=== PATIENT | female | born 1975 | race Caucasian/White ===

== ENCOUNTER 2020-04-23 16:16 | Outpatient (CLI) | payer OTHER, SELFPAY ==
--- NOTE | ~2020-04-23 | MM_ITS ---
EXAMINATION: MM screening luis f BI w andressa HISTORY: Screening mammogram TECHNIQUE: Craniocaudal and mediolateral oblique 3-D tomosynthesis images were obtained and synthetic 2-D images were generated. CAD analysis was submitted and interpreted. COMPARISON: 04/08/2019, 03/20/2018, 03/02/2017 bilateral digital screening mammogram examinations BREAST PARENCHYMAL COMPOSITION: There are scattered areas of fibroglandular density. FINDINGS: There is stable mild fibroglandular asymmetry. There is no evidence of suspicious mass, lon cification, or architectural distortion to suggest malignancy in either breast. There has been no baron picious interval change. IMPRESSION: 1. No mammographic evidence of malignancy. 2. Recommend routine screening mammography in one year. BI-RADS Category 2: Benign finding(s). Reviewed, dictated and finalized at location A.
== END 2020-04-23 16:17 | disposition home or self-care (01) ==
PROVIDERS: PCP Family Medicine; Visit Provider Family Medicine
DX: Z12.31 Encounter for screening mammogram for malignant neoplasm of breast (principal)
CPT/HCPCS: 77063; 77067

== ENCOUNTER 2020-08-12 14:45 | Emergency (ER) | payer OTHER, SELFPAY ==
--- NOTE | ~2020-08-12 | XR_ITS ---
EXAMINATION: XR tibia fibula RT 2V INDICATION: Right leg pain TECHNIQUE: Two views of the right tibia and fibula are obtained. COMPARISON: 06/12/2010 FINDINGS: There is no fracture, dislocation, or subluxation. The bones, soft tissues, and joint space s are normal. IMPRESSION: 1. No acute osseous abnormality. Reviewed, dictated and finalized at location A. 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
[2020-08-12 14:57] VITALS: BP 109/87; PULSE 87; RESP 16; TEMP 37.3; O2SAT 99
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
--- NOTE | 2020-08-12 15:31 | PC.NURSE ---
Davis sherwood with Dr Tate for transfer
--- NOTE | 2020-08-12 15:37 | PC.NURSE ---
appropriate paperwork signed for transfer report to [facility]
== END 2020-08-12 15:38 | disposition short-term general hospital (02) ==
PROVIDERS: Emergency Provider Nurse Practitioner; PCP Family Medicine
DX: M79.661 Pain in right lower leg (principal); M79.89 Other specified soft tissue disorders
CPT/HCPCS: 73590; 99213; G0463

== ENCOUNTER 2020-08-12 15:49 | Emergency (ER) | payer OTHER, SELFPAY ==
[2020-08-12 16:00] VITALS: BP 142/84; PULSE 78; RESP 18; TEMP 36.2; O2SAT 100
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
--- NOTE | 2020-08-12 17:05 | PC.NURSE ---
xray done and resulted. patient up for discharge. wants to see provider prior to discharge for results.
== END 2020-08-12 17:19 | disposition home or self-care (01) ==
PROVIDERS: Emergency Provider Emergency Medicine; PCP Family Medicine
DX: S80.11XA Contusion of right lower leg, initial encounter (principal); V49.60XA Unspecified car occupant injured in collision with unspecified motor vehicles in traffic accident, initial encounter
CPT/HCPCS: 99283

== ENCOUNTER 2021-05-04 15:24 | Outpatient (CLI) | payer OTHER, SELFPAY ==
--- NOTE | ~2021-05-04 | MM_ITS ---
EXAMINATION: MM screening [facility] BI w andressa HISTORY: Screening TECHNIQUE: Craniocaudal and mediolateral oblique 3-D tomosynthesis images were obtained and synthetic 2-D images were generated. CAD analysis was submitted and interpreted. COMPARISON: Comparison to multiple prior studies sequentially, with oldest reviewed study dated 02/18. BREAST PARENCHYMAL COMPOSITION: There are scattered areas of fibroglandular density. FINDINGS: There has been interval development of multiple benign coil cysts in the right breast, poss ibly from interval trauma. Clinically correlate. There is no evidence of suspicious mass, calcificati on, or architectural distortion to suggest malignancy in either breast. There has been no suspicious interval change. IMPRESSION: 1. No mammographic evidence of malignancy. 2. Recommend routine screening mammography in one year. BI-RADS Category 2: Benign finding(s). Reviewed, dictated and finalized at location A.
== END 2021-05-04 15:25 | disposition home or self-care (01) ==
LOC: ANHIMG 15:27
PROVIDERS: PCP Family Medicine; Visit Provider Family Medicine
DX: Z12.31 Encounter for screening mammogram for malignant neoplasm of breast (principal)
CPT/HCPCS: 77063; 77067

== ENCOUNTER 2022-06-04 07:14 | Outpatient (CLI) | payer OTHER, SELFPAY ==
--- NOTE | ~2022-06-04 | MM_ITS ---
EXAMINATION: MM screening [facility] BI w andressa HISTORY: Screening mammogram TECHNIQUE: Craniocaudal and mediolateral oblique 3-D tomosynthesis images were obtained and synthetic 2-D images were generated. CAD analysis was submitted and interpreted. COMPARISON: 05/04/2021, 04/23/2020, 04/08/2019 BREAST PARENCHYMAL COMPOSITION: There are scattered areas of fibroglandular density. FINDINGS: There is no suspicious mass, calcification, or architectural distortion to suggest malignan cy in either breast. There has been no suspicious interval change. IMPRESSION: 1. No mammographic evidence of malignancy. 2. Recommend routine screening mammography in one year. BI-RADS Category 1: Negative Reviewed, dictated and finalized at location A.
== END 2022-06-04 07:15 | disposition home or self-care (01) ==
LOC: ANHIMG 07:15
PROVIDERS: PCP Family Medicine; Visit Provider Family Medicine
DX: Z12.31 Encounter for screening mammogram for malignant neoplasm of breast (principal)
CPT/HCPCS: 77063; 77067

== ENCOUNTER 2022-12-03 08:00 | Emergency (ER) | payer OTHER, SELFPAY ==
--- NOTE | 2022-12-03 08:07 | ED.GENADULT ---
HPI - General Adult General Chief complaint: Upper Respiratory Infection Stated complaint: sorethroat Time Seen by Provider: 12/03/22 08:09 Source: patient Mode of arrival: ambulatory Limitations: no limitations History of Present Illness HPI narrative: 47-year-old female patient presents to the [facility] with complaints of a sore throat this started yesterday. 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 Patient states that she does not have any other symptoms. Patient states she does take Zyrtec daily. Denies fevers, body aches or chills. Related Data Home Medications Medication Instructions Recorded Confirmed mesalamine 1.2 gram tablet,delayed 1.2 g PO DAILY 08/12/20 08/12/20 release Allergies Allergy/AdvReac Type Severity Reaction Status Date / Time No Known Allergies Allergy Verified 12/03/22 08:13 Review of Systems Review of Systems: CONSTITUTIONAL: Denies fever, chills, or sweats. EYES: Denies visual changes, redness, or discharge. ENT: Denies rhinorrhea, congestion, Positive sore throat, denies otalgia. CARDIOVASCULAR: Denies chest pain, palpitations, or edema. RESPIRATORY: Denies cough or dyspnea. GASTROINTESTINAL: Denies abdominal pain, nausea, vomiting, or diarrhea. GENITOURINARY: Denies dysuria or hematuria. SKIN: Denies rash or itching. MUSCULOSKELETAL: Denies back pain, joint pain, or myalgia. NEUROLOGIC: Denies headache, numbness, or weakness. PSYCHIATRIC: Denies anxiety or depression. [facility] Past Medical History Medical History Ulcerative colitis Surgical History Surgical History No significant past surgical history Family History Family History Other No significant family history Social History Social History Smoking status: Never smoker Alcohol intake: current Alcohol use details: Occasional Substance use: never Living arrangements: with family Occupation/Education: occupation Comments At the time of my signature I agree with nursing past medical history, surgical, social, and family history. There is no relevant family history pertinent to the presenting complaint. Exam Narrative: GENERAL: Well-appearing, well-nourished, and in no acute distress. HEAD: Normocephalic, atraumatic. EYES: PERRLA and EOMI. ENT: Nares clear, no rhinorrhea or epistaxis. Mucous membranes moist. posterior pharynx with no erythema, tonsillar enlargement, exudates or lesions present. Bilateral TMs are clear no erythema or foreign bodies the canal. NECK: Supple. No lymphadenopathy CHEST: Clear to auscultation. No respiratory distress. HEART: Regular rate and rhythm. No murmur heard. Normal peripheral pulses. ABDOMEN: Soft, nontender, nondistended, normal active bowel sounds. EXTREMITIES: Normal range of motion. No edema. SKIN: Warm, dry, no rash. NEURO: No focal deficits. Alert and oriented x3. Course Course Level of Care: Express Care Visit Vital Signs Vital signs: Vital Signs Temperature 36.2 C L 12/03/22 08:12 Pulse Rate 63 12/03/22 08:12 Respiratory Rate 18 12/03/22 08:12 Blood Pressure 110/68 12/03/22 08:12 Pulse Oximetry 99 12/03/22 08:12 Oxygen Delivery Room Air 12/03/22 08:12 Temperature 36.2 C L 12/03/22 08:14 Pulse Rate 63 12/03/22 08:14 Respiratory Rate 18 12/03/22 08:14 Blood Pressure 110/68 12/03/22 08:14 Pulse Oximetry 99 12/03/22 08:14 Oxygen Delivery Room Air 12/03/22 08:14 vital signs reviewed Medical Decision Making MDM Narrative Medical decision making narrative: Plan of care for patient is swabbed her today for strep. If the swab comes back negative will send off to lab for culture. I will reassess her once this has resulted. Differential Di
[2022-12-03 08:12] VITALS: BP 110/68; PULSE 63; RESP 18; TEMP 36.2; O2SAT 99
[2022-12-03 08:14] VITALS: BP 110/68; PULSE 63; RESP 18; TEMP 36.2; O2SAT 99
== END 2022-12-03 08:30 | disposition home or self-care (01) ==
PROVIDERS: Emergency Provider Nurse Practitioner Family; PCP Family Medicine
DX: J02.9 Acute pharyngitis, unspecified (principal)
CPT/HCPCS: 87081; 87880; 99213; G0463

== ENCOUNTER 2023-07-15 07:29 | Outpatient (CLI) | payer OTHER, SELFPAY ==
--- NOTE | ~2023-07-15 | MM_ITS ---
EXAMINATION: MM screening [facility] BI w andressa HISTORY: Screening mammogram TECHNIQUE: Craniocaudal and mediolateral oblique 3-D tomosynthesis images were obtained and synthetic 2-D images were generated. CAD analysis was submitted and interpreted. COMPARISON: 06/04/2022, 05/04/2021, 04/23/2020, 04/08/2019 bilateral screening mammogram examinations BREAST PARENCHYMAL COMPOSITION: There are scattered areas of fibroglandular density. FINDINGS: Stable fibroglandular asymmetry. Stable since 06/04/2022 benign circumscribed partially calc ified opacity in the anterior inner mid right breast. There is no evidence of suspicious mass, calcif ication, or architectural distortion to suggest malignancy in either breast. There has been no suspic ious interval change. IMPRESSION: 1. No mammographic evidence of malignancy. 2. Recommend routine screening mammography in one year. BI-RADS Category 2: Benign finding(s). Reviewed, dictated and finalized at location B. EL LOCOMOTIVE ENGINEER
== END 2023-07-15 07:30 | disposition home or self-care (01) ==
PROVIDERS: PCP Family Medicine; Visit Provider Family Medicine
DX: Z12.31 Encounter for screening mammogram for malignant neoplasm of breast (principal)
CPT/HCPCS: 77063; 77067

== ENCOUNTER 2024-08-26 08:38 | Outpatient (CLI) | payer OTHER, SELFPAY ==
--- NOTE | ~2024-08-26 | MM_ITS ---
EXAMINATION: MM screening [facility] BI w adnressa HISTORY: Screening TECHNIQUE: Craniocaudal and mediolateral oblique 3-D tomosynthesis images were obtained and synthetic 2-D images were generated. CAD analysis was submitted and interpreted. COMPARISON: Examination was compared with multiple prior studies performed most recently on 3 and dating back to 04/23/2020 BREAST PARENCHYMAL COMPOSITION: There are scattered areas of fibroglandular density. FINDINGS: Punctate calcifications detected bilaterally, stable and benign in appearance. Stable parenchymal pattern without suspicious microcalcifications, architectural distortion, discrete masses or significant asymmetry. IMPRESSION: 1. No mammographic evidence of malignancy. 2. Recommend routine screening mammography in one year. BI-RADS Category 2: Benign findings. Reviewed, dictated and finalized at location A. COVERER HAND
--- OUTSIDE RECORDS SUMMARY | 2024-09-02 20:18 | XMS_ITS | Encounter Summary ---
Author Organization [facility] Healthcare Address [address] [place] [address] Care Team Providers Care Service Restorer Emergency Name Role Phone Eun Rodriguez MD Primary Care Provi ashli Carmen Alanis MD Unavailable [phone] Reason for Visit * Reason Comments Annual Exam Encounter Details Date Type Department Care Team (Late st Contact Info) Description 07/12/2024 9:30 AM MATERIAL ATTENDANT Office Visit [facility] Family Medicine [address] [id number] Eun Rodriguez MD [address] [address] Well adult exam (Primary Dx); Class 1 obesity due to excess calories with serious comorbidity and body mass index (BMI) of 30.0 to 30.9 in adult; Pure hypercholesterolemia ; Ulcerative colitis without complications, unspecified location (HCC); Seasonal allergies Social History Tobacco Use Types Packs/Day Years Used Date Smoking Tobacco: Never Smokeless Tobacco: Never Tobacco Cessation:Counseling Given: Not Answered Alcohol Use Standard Drinks/Week Comments Yes 0 (1 standard drink = 0.6 oz pur e alcohol) AUDIT-C Answer Date Recorded Q1: How often do you have a drink containing alc ohol? 2-4 times a month 07/12/2024 Q2: How many drinks containi ng alcohol do you have on a typical day when you are drinking? 1 or 2 07/12/2024 Q3: How often do you have si x or more drinks on one occasion? Never 07/12/2024 PHQ-2 Answer Date Recorded PHQ-2 Total Score (If total score is 3 or more points, staff should administer the PHQ-9) 0 07/12/2024 Comments No Sex and Gender Information Value Date Recorded Sex Assigned at Not on file Legal Sex Female 9:32 AM MATERIAL ATTENDANT Gender Identity Female 04/21/2021 2:30 PM CDT Sexual Orientation Straight 04/21/2021 2: 30 PM CDT documented as of this encounter Last Filed Vital Signs Vital Sign Reading Time Taken Comments Blood Pressure 102/72 07/12/2024 9:31 AM MATERIAL ATTENDANT Pulse 68 07/12/2024 9:31 AM MATERIAL ATTENDANT Temperature 36.4 ??C (97.5 ??F) 07/12/2024 9:31 AM CS T Respiratory Rate 12 07/12/2024 9:31 AM MATERIAL ATTENDANT Oxygen Saturation 97% 07/12/2024 9:31 AM MATERIAL ATTENDANT Inhaled Oxygen Concentration - - Weight 75.2 kg (165 lb 11.2 oz) 07/12/2024 9:31 AM MATERIAL ATTENDANT Height 157.5 cm (5' 2 ) 07/12/2024 9:31 AM MATERIAL ATTENDANT Body Mass Index 30.31 07/12/2024 9:31 AM MATERIAL ATTENDANT documented in this encounter Patient Instructions * Patient Instructions* Eun Rodriguez MD - 07/12/2024 9:30 AM MATERIAL ATTENDANT Health Maintenance Topic Date Due Hepatitis B Screening Never done Breast Cancer Screening-Mammogram 07/15/2024 Regular Well Visit/Exam 18-64 04/08/2025 Cervical Cancer Screening 04/08/2025 Depression Screening 07/12/2025 Colon Cancer Screening-Colonoscopy 02/12/2029 DTaP/Tdap/Td Vaccine (3 - Td or Tdap) 04/21/2031 Zoster Vaccine Completed Covid-19 Vaccine Completed Influenza Vaccine Completed Hepatitis C Screening Completed Pneumococcal vaccine <65 Aged Out RIAL ATTENDANT documented in this encounter Progress Notes * Eun Rodriguez MD - 07/12/2024 9:30 AM CST Images from the original note were not included. Subjective History of Present Illness The patient presents for an annual wellness visit. She reports no changes to her medical or family history. She has had a recent Pap smear in April, which was negative. She has a scheduled mammogramin August and had a colonoscopy in February, with the next one due in two years. She is up to date onher tetanus, flu, COVID, and shingles vaccines. The patient has a history of ulcerative colitis, which is currently well-managed with mesalamine. She reports no current issues with her bowel movements or eating and drinking. She also has seasonal allergies, managed with Nasonex. . She has a history of hypercholesterolemia, with a recent slight increase in LDL levels. However, her overall cardiovascular risk remains low. The patient is classified as obese based on BMI, but she does not report any specific concerns related to her weight. Objective BP 102/72 (BP Location: Left arm, Patient Position: Sitting) Pulse 68 Temp 36.4 ??C (97.5 ??F) (Temporal) Resp 12 Ht 157.5 cm (5' 2 ) Wt 75.2 kg (165 lb 11.2 oz) SpO2 97% BMI 30.31 kg/m?? Physical Exam HEENT: Pharynx without erythema or exudate. CHEST: Breath sounds clear bilaterally without wheezes, rales, or rhonchi. Physical Exam Vitals and nursing note reviewed. Constitutional: General: She is not in acute distress. Appearance: Normal appearance. She is well-developed. She is obese. She is not ill-appearing. HENT: Head: Normocephalic and atraumatic. Right Ear: Tympanic membrane, ear canal and external ear normal. Left Ear: Tympanic membrane, ear canal and external ear normal. Nose: Nose normal. Mouth/Throat: Mouth: Mucous membranes are moist. Eyes: Extraocular Movements: Extraocular movements intact. Cardiovascular: Rate and Rhythm: Normal rate and regular rhythm. Heart sounds: Normal heart sounds. No murmur heard. Pulmonary: Effort: Pulmonary effort is normal. No respiratory distress. Breath sounds: Normal breath sounds. Abdominal: General: Bowel sounds are normal. There is no distension. Palpations: Abdomen is soft. Tenderness: There is no abdominal tenderness. Musculoskeletal: Cervical back: Neck supple. Skin: General: Skin is warm and dry. Neurological: Mental Status: She is alert and oriented to person, place, and time. Motor: No abnormal muscle tone. Psychiatric: Mood and Affect: Mood normal. Behavior: Behavior normal. Thought Content: Thought content normal. Results LABS LDL: Elevated Thyroid: Normal B12: Normal Hepatitis C: Negative DIAGNOSTIC Colonoscopy: Normal (02/2024) PATHOLOGY Pap smear: Negative (04/2024) Diagnoses and all orders for this visit: Well adult exam (Primary) Assessment & Plan: Work on healthy low carb diet Healthy activity for 30 minutes daily Wear sun screen, seat belts No texting/drinking and driving Health Maintenance Last PAP: 04/2021,04/27- NILM, Neg HPV Last mammogram: 06/25,07/27-WNL, scheduled Last colonoscopy: 02/25-repeat in 2 years Last TDAP- up to date Shingles-up to date Last Flu: yearly Last COVID: up to date Class 1 obesity due to excess calories with serious comorbidity and body mass index (BMI) of 30.0 to 30.9 in adult Assessment & Plan: Chronic, stable BMI Follow-up includes: nutrition counseling and exercise counseling. Pure hypercholesterolemia Ulcerative colitis without complications, unspecified location (HCC) Seasonal allergies Assessment & Plan Well adult exam (Primary) Assessment & Plan: Work on healthy low carb diet Healthy activity for 30 minutes daily Wear sun screen, seat belts No texting/drinking and driving Health Maintenance Last PAP: 04/2021,04/27- NILM, Neg HPV Last mammogram: 06/25,07/27-WNL, scheduled Last colonoscopy: 02/25-repeat in 2 years Last TDAP- up to date Shingles-up to date Last Flu: yearly Last COVID: up to date Ulcerative Colitis Stable with no reported changes in bowel habits or abdominal discomfort. Currently managed with mesalamine by GI. -Continue mesalamine as prescribed. Hypercholesterolemia Slight progression noted in recent labs, but patient's [employer] score is 1.2%, below the 5% threshold for medication initiation. -Monitor cholesterol levels and maintain healthy lifestyle. Seasonal Allergies Managed with Nasonex. -Continue Nasonex as needed. Obesity Chronic, stable Continue healthy lifestyle changes General Health Maintenance / Followup Plans -Continue with scheduled mammogram on August 23, 2024 at [facility]. -Next colonoscopy due in February 2026. -Continue with scheduled nerve conduction study on July 15, 2024. Await results and follow up as needed. -All vaccinations, including shingles, are up to date. -Encouraged to maintain healthy lifestyle, including regular exercise and strength training. Eun Rodriguez MD RIAL ATTENDANT documented in this encounter Miscellaneous Notes * Assessment & Plan Note - Eun Rodriguez MD - 07/12/2024 9:57 AM CSTAssociated Problem(s): Class 1 obesity due to excess calories with serious comorbidity and body mass index (BMI) of 30.0 to 30.9 in adult Chronic, stable BMI Follow-up includes: nutrition counseling and exercise counseling. RIAL ATTENDANT * Assessment & Plan Note - Eun Rodriguez MD - 07/12/2024 9:48 AM CSTAssociated Problem(s): Well adult exam Work on healthy low carb diet Healthy activity for 30 minutes daily Wear sun screen, seat belts No texting/drinking and driving Health Maintenance Last PAP: 04/2021,04/27- NILM, Neg HPV Last mammogram: 06/25,07/27-WNL, scheduled Last colonoscopy: 02/25-repeat in 2 years Last TDAP- up to date Shingles-up to date Last Flu: yearly Last COVID: up to date RIAL ATTENDANT documented in this encounter Plan of Treatment Not on file documented as of this encounter Visit Diagnoses Diagnosis Well adult exam- Primary Routine general medical examination at a health care facility Class 1 obesity due to excess calories with serious comorbidity and body mass index (BMI) of 30.0 to 30.9 in adult Pure hypercholesterolemia Ulcerative colitis without complications, unspecified location (HCC) Seasonal allergies Allergic rhinitis, cause unspecified documented in this encounter Care Teams Service Restorer Emergency Relationship Specialty Start Date End Date Eun Rodriguez MD [address] [place] [address] PCP - General Family Medicine 02/08/19 Carmen Alanis MD [address] [address] Consulting Physician Gastroenterology 04/28/22 documented as of this encounter
--- OUTSIDE RECORDS SUMMARY | 2024-09-02 20:18 | XMS_ITS | Encounter Summary ---
Author Organization [facility] Healthcare Address [address] [place] [address] Care Team Providers Care Metal Dresser Name Role Phone Eun Rodriguez MD Primary Care Provi ashli Carmen Alanis MD Unavailable [phone] Reason for Visit * Reason Comments Immunizations Shingrix Encounter Details Date Type Department Care Team (Latest Contact Info) Description 04/08/2024 8:00 AM CDT Clinical Support [facility] Family Medicine [address] [phone] Encounter for immunization (Primary Dx) Social History Tobacco Use Types Packs/Day Years Used Date Smoking Tobacco: Never Smokeless Tobacco: Never Alcohol Use Standard Drinks/Week Comments Yes 0 (1 standard drink = 0.6 oz pur e alcohol) AUDIT-C Answer Date Recorded Q1: How often do you have a drink containing alc ohol? 2-4 times a month 05/03/2023 Q2: How many drinks containi ng alcohol do you have on a typical day when you are drinking? 1 or 2 05/03/2023 Q3: How often do you have si x or more drinks on one occasion? Never 05/03/2023 PHQ-2 Answer Date Recorded PHQ-2 Total Score (If total score is 3 or more points, staff should administer the PHQ-9) 0 05/03/2023 Comments No Sex and Gender Information Value Date Recorded Sex Assigned at Not on file Legal Sex Female 9:32 AM TANKAGE SUPERVISOR Gender Identity Female 04/21/2021 2:30 PM CDT Sexual Orientation Straight 04/21/2021 2: 30 PM CDT documented as of this encounter Plan of Treatment Not on file documented as of this encounter Visit Diagnoses Diagnosis Encounter for immunization- Primary documented in this encounter Orders Immunization/Injection Count Last Ordered Date First Ordered Date ZOSTER (SHINGLES) HZV IM 1 04/08/2024 documented in this encounter Care Teams Metal Dresser Relationship Specialty Start Date End Date Eun Rodriguez MD [address] [place] [address] PCP - General Family Medicine 02/08/19 Carmen Alanis MD [address] [facility] [address] [place] [address] Consulting Physician Gastroenterology 04/28/22 documented as of this encounter
--- OUTSIDE RECORDS SUMMARY | 2024-09-02 20:18 | XMS_ITS | Referral Summary ---
Author Organization [facility] at the Medical Office Building Address [address] [place] [phone] Care Team Providers Care Hearing Aid Consultant Name Role Phone Eun Rodriguez MD Primary Care Provi ashli Carmen Alanis MD Unavailable [phone] Encounters Date Type Department Care Team Description 07/24/2024 Telephone [facility] Family Medicine [address] [place] [phone] Eun Rodriguez MD Symptom Based Call 07/15/2024 9:00 AM COVERER Therapy [facility] OP Physical Therapy [address] [place] [phone] Tingling of both feet 07/12/2024 9:30 AM COVERER Office Visit [facility] Medicine [address] [place] [phone] Eun Rodriguez MD Well adult exam (Primary Dx); Class 1 obesity due to excess calories with serious comorbidity and body mass index (BMI) of 30.0 to 30.9 in adult; Pure hypercholesterolemia ; Ulcerative colitis without complications, unspecified location (HCC); Seasonal allergies from Last 3 Months Allergies No known active allergies Medications multivit with min-folic acid 200 mcg tablet,chewabl e Rx: Multivitamin Adult - Tablet Active cetirizine 10 mg capsule 10 mg daily Active mesalamine (LIALDA) 1.2 gram EC tablet daily Activ e PreviDent 5000 Booster Plus 1.1 % paste USE AT BEDIME AND EXPECTORATE TOOTHPASTE AFTER USE BUT DO NOT RINSE AFTER USE 1 Active mometasone (NASONEX) 50 mcg/actuation nasal spray USE 2 SPRAYS IN EACH NOSTRIL DAILY 17 g 11 3 Active azithromycin (ZITHROMAX) 250 mg tabletIndicati ons:Pertussis exposure Take 2 tabs (500 mg) by mouth today, than 1 tab (250 mg) daily for 4 days. 6 tablet 4 08/04/20 24 Active Problems Problem Noted Date Diagnosed Date Class 1 obesity due to exces s calories with serious comorbidity and body mass index (BMI) of 30.0 to 30.9 in adult 04/28/2022 Assessment & Plan (07/12/2024 9:57 AM COVERER): Chronic, stable BMI Follow-up includes: nutrition counseling and exercise counseling. Assessment & Plan (05/03/2023 2:00 PM CDT): BMI Follow-up includes: nutrition counseling. Assessment & Plan (04/28/2022 3:23 PM CDT): BMI Follow-up includes: nutrition counseling. Ulcerative colitis 04/16/2020 Assessment & Plan (05/03/2023 2:00 PM CDT): Chronic, stable Continue to see Dr Alanis Continue her current regimen Call for questions or concerns Assessment & Plan (04/28/2022 3:25 PM CDT): Chronic, stable Continue lialda Continue to follow with GI Assessment & Plan (04/21/2021 3:17 PM CDT): Continue to follow with GI Continue current regimen Call for questions or concerns Assessment & Plan (04/16/2020 3:56 PM CDT): Continue to follow with GI Update me with any changes Well adult exam 03/13/2019 Overview (07/12/2024): Work on healthy low carb diet Healthy activity for 30 minutes daily Wear sun screen, seat belts No texting/drinking and driving Health Maintenance Last PAP: 04/2021,04/27- NILM, Neg HPV Last mammogram: 06/25,07/27-WNL, scheduled Last colonoscopy: 02/25-repeat in 2 years Last TDAP- up to date Shingles-up to date Last Flu: yearly Last COVID: up to date Assessment & Plan (07/12/2024 9:48 AM COVERER): Work on healthy low carb diet Healthy activity for 30 minutes daily Wear sun screen, seat belts No texting/drinking and driving Health Maintenance Last PAP: 04/2021,04/27- NILM, Neg HPV Last mammogram: 06/25,07/27-WNL, scheduled Last colonoscopy: 02/25-repeat in 2 years Last TDAP- up to date Shingles-up to date Last Flu: yearly Last COVID: up to date Assessment & Plan (05/03/2023 1:58 PM CDT): Work on healthy low carb diet Healthy activity for 30 minutes daily Wear sun screen, seat belts No texting/drinking and driving Health Maintenance Last PAP: 04/2021- NILM, Neg HPV Last mammogram: 06/04/22-WNL, ordered Last colonoscopy: 12/21/15-repeat next year Last TDAP- up to date Last Flu: yearly Last COVID: up to date Assessment & Plan (04/28/2022 3:22 PM CDT): Work on healthy low carb diet Healthy activity for 30 minutes daily Wear sun screen, seat belts No texting/drinking and driving Health Maintenance Last PAP: 04/2021- Neg Last mammogram: 05/04/22-WNL, ordered Last colonoscopy: 12/21/15-repeat in 10 years Last TDAP- up to date Last Flu: yearly Last COVID: up to date Assessment & Plan (04/21/2021 3:13 PM CDT): Work on healthy low carb diet Healthy activity for 30 minutes daily Wear sun screen, seat belts No texting/drinking and driving PMH updated: Last PAP: today Last mammogram: Ordered Last colonoscopy/cologuard: 12/21/15-repeat in 10 years Last Flu: yearly Last COVID: up to date Assessment & Plan (04/16/2020 3:28 PM CDT): Work on healthy low carb diet Healthy activity for 30 minutes daily Wear sun screen, seat belts No texting/drinking and driving PMH updated: 03/13/19 Last PAP: 02/21/18 Last mammogram:[facility] 04/08/19 Negative Last DEXA: @58 Last colonoscopy/cologuard: 12/21/15-repeat in 10 years Last hepatitis C: @53 Last Tdap: 02/12 Last pneumonia/Prevnar:@63 Last Shingrix: @48 Last Flu: yearly Assessment & Plan (03/13/2019 9:24 AM CDT): Work on healthy low carb diet Healthy activity for 30 minutes daily Wear sun screen, seat belts No texting/drinking and driving Low libido 03/13/2019 Assessment & Plan (03/13/2019 9:25 AM CDT): Will check labs Pure hypercholesterolemia 02/21/2018 Assessment & Plan (05/03/2023 1:59 PM CDT): Chronic, stable Continue healthy changes Labs ordered Assessment & Plan (04/28/2022 3:24 PM CDT): CVD score 29.1% Continue healthy changes Assessment & Plan (04/21/2021 3:17 PM CDT): Improved Continue healthy changes Assessment & Plan (03/13/2019 9:25 AM CDT): Labs ordered Seasonal allergies 02/12/2018 Assessment & Plan (04/28/2022 3:24 PM CDT): Chronic, stable Continue zyrtec Assessment & Plan (04/21/2021 3:17 PM CDT): Stable Continue current regimen Assessment & Plan (04/16/2020 3:56 PM CDT): Continue current regimen Continue healthy changes Resolved Problems Problem Noted Date Diagnosed Date Resolved Date Class 1 obesity due to exces s calories with serious comorbidity and body mass index (BMI) of 30.0 to 30.9 in adult 03/13/2019 04/28/2022 Assessment & Plan (04/21/2021 3:16 PM CDT): BMI Follow-up includes: nutrition counseling. Assessment & Plan (04/16/2020 3:30 PM CDT): BMI Follow-up includes: nutrition counseling. Assessment & Plan (03/13/2019 9:26 AM CDT): Reviewed BMI Encouraged to focus on healthy lifestyle changes Immunizations Name Administration Dates Next Due Influenza, Quadrivalent, Odalys l Culture-based MDCK, Preservative Free, Antibiotic Free, Intramuscular 06/16/2023,05/27/2022 Influenza, Quadrivalent, Spl it, Preservative Free, Intramuscular 06/04/2021,05/25/2019,06/26/2018 Influenza, Trivalent, IM (MDV) 06/16/2014 Influenza, Trivalent, Preser vative Free, Intramuscular 05/26/2024,06/15/2017,06/06/2016,06/24,09/17/2012 Influenza, Unspecified 06/04/2020 MMR 12/11/2006 Pfizer SARS-CoV-2 Monovalent Vaccination (12+ Yrs) PURPLE 10/19/2020,09/28/2020 Tdap 04/21/2021,02/15/2011 ZOSTER Recombinant 04/08/2024,11/30/2023 Social History Tobacco Use Types Packs/Day Years [...] on file Legal Sex Female 9:32 AM COVERER Gender Identity Female 04/21/2021 2:30 PM CDT Sexual Orientation Straight 04/21/2021 2: 30 PM CDT Last Filed Vital Signs Vital Sign Reading Time Taken Comments Blood Pressure 102/72 07/12/2024 9:31 AM COVERER Pulse 68 07/12/2024 9:31 AM COVERER Temperature 36.4 ??C (97.5 ??F) 07/12/2024 9:31 AM CS T Respiratory Rate 12 07/12/2024 9:31 AM COVERER Oxygen Saturation 97% 07/12/2024 9:31 AM COVERER Inhaled Oxygen Concentration - - Weight 75.2 kg (165 lb 11.2 oz) 07/12/2024 9:31 AM COVERER Height 157.5 cm (5' 2 ) 07/12/2024 9:31 AM COVERER Body Mass Index 30.31 07/12/2024 9:31 AM COVERER Plan of Treatment Not on file Procedures Procedure Name Priority Date/Time Associated Diagnosis Comments HEPATITIS C ANTIBODY Routine 06/01/2024 8:03 AM CDT Need for hepatitis C screening test HIGH RISK HPV DNA DETECTION WITH GENOTYPING Routine 04/08/2024 9:53 AM CDT Well woman exam HM COLONOSCOPY Routine 02/13/2024 HM MAMMOGRAPHY Routine 07/15/2023 from Last 3 Months or Most Recently Relevant to Health Maintenance Results * Hepatitis C antibody Blood (06/01/2024 8:03 AM CDT) Hep C Ab Non Reactive Non Reactive [facility] - 01 Comment: HCV antibody alone does not differentiate between previously resolved infection and active infection. Equivocal and Reactive HCV antibody results should be followed up with an HCV RNA test to support the diagnosis of active HCV infection. Blood 06/01/2024 8:03 AM CDT 06/01/2024 Narrative [facility] - 06/02/2024 8:09 AM CDT Performed at: ??01 - [facility], [place], [place] ??[id number] Asphalt Machine Operator: Vasiliy Leach PhD, Phone: ??[phone] Eun Rodriguez MD LAB MICROBIOLOGY - GENERAL ORDERABLES Final Result [facility] - * High Risk HPV DNA Detection with Genotyping (Molecular component) (04/08/2024 9:53 AM CDT) HPV HR 16 Not Detected Not Detected [facility] Comment:Testing performed by : [facility], [address] [place]., [address] HPV HR 18 Not Detected Not Detected [facility] Comment:Testing performed by : [facility], [address] [place]., [address] HPV HR Non 16/18 Not Detected Not Detected [facility] Comment: Interpretive Data Nucleic acid amplification for detection of high-risk Human Papilloma virus (HPV) is performed by the Jairo Nicole 6800 HPV test. ??This assay specifically detects HPV-16 and HPV-18 genotypes. ??The following HPV genotypes are detected as high-risk HPV: ?? HPV-31, 33, 35, ,39, 45, 51, 52, 56, 58, 59, 66, and 68. ??This assay has been approved by the [place] Food and Drug Administration for detection of HPV in cervical specimens collected by a physician using an endocervical brush/spatula or cervical broom and placed in the ThinPrep Pap Test PreservCyt collection containers. ??The performance characteristics of this test have been verified by the [facility] Molecular Infectious Disease laboratory. Correlate with separately reported cytology results, as applicable. Interpretive data last revised 23 Testing performed by: [facility], [address] [place]., [address] Endocervical 04/08/2024 9:53 AM CDT 04/09/2024 10:08 AM CDT Narrative [facility] - 04/09/2024 8:57 PM CDT Clinical history and diagnosis->Routine Number of vials->1 Testing type->Screening Last menstrual period (date if known)->IUD Kavitha Shelley MD LAB BODY FLUIDS AND STOOLS O RDERABLES Final Result [facility] [address] [facility] [place] [address] [facility] * COLONOSCOPY (02/13/2024) Historical Provider HEALTH MAINTENANCE Final Result * MAMMOGRAPHY (07/15/2023) Pathologist [facility] Mammography Normal Historical Provider HEALTH MAINTENANCE Final Result from Last 3 Months or Most Recently Relevant to Health Maintenance Insurance [facility] PL[facility] Care Teams Hearing Aid Consultant Relationship Specialty Start Date End Date Eun Rodriguez MD [facility] [address] [place] [address] PCP - General Family Medicine 02/08/19 Carmen Alanis MD [address] [place] [address] Consulting Physician Gastroenterology 04/28/22
--- OUTSIDE RECORDS SUMMARY | 2024-09-02 20:18 | XMS_ITS | Clinical Summary ---
Author Organization [facility] at the Medical Office Building Address [address] [place] [address] Care Team Providers Care Torch Brazer Name Role Phone Eun Rodriguez MD Primary Care Provi ashli Carmen Alanis MD Unavailable [phone] Allergies No known active allergies Medications multivit [...] 04/28/2022 Assessment & Plan (07/12/2024 9:57 AM TRAVEL INSURANCE AGENT): Chronic, stable BMI Follow-up includes: nutrition counseling [...] date Assessment & Plan (07/12/2024 9:48 AM TRAVEL INSURANCE AGENT): Work on healthy low carb diet Healthy [...] Encouraged to focus on healthy lifestyle changes Encounters Date Type Department Care Team Description 07/24/[address] [phone] Eun Rodriguez MD Symptom Based Call 07/15/2024 9:00 AM TRAVEL INSURANCE AGENT Therapy [facility] OP Physical Therapy [facility] [address] [address] Tingling of both feet 07/12/2024 9:30 AM TRAVEL INSURANCE AGENT Office Visit [address] [phone] Eun Rodriguez MD Well adult exam (Primary Dx); Class 1 obesity due to excess calories with serious comorbidity and body mass index (BMI) of 30.0 to 30.9 in adult; Pure hypercholesterolemia ; Ulcerative colitis without complications, unspecified location (HCC); Seasonal allergies from Last 3 Months Immunizations Name Administration Dates Next Due Influenza, Quadrivalent, Odalys l Culture-based MDCK, Preservative Free, Antibiotic Free, Intramuscular 06/16/2023,05/27/2022 Influenza, Quadrivalent, Spl it, Preservative Free, Intramuscular 06/04/2021,05/25/2019,06/26/2018 Influenza, Trivalent, IM (MDV) 06/16/2014 Influenza, Trivalent, Preser vative Free, Intramuscular 05/26/2024,06/15/2017,06/06/2016,06/24,09/17/2012 Influenza, Unspecified 06/04/2020 MMR 12/11/2006 Pfizer SARS-CoV-2 Monovalent Vaccination (12+ Yrs) PURPLE 10/19/2020,09/28/2020 Tdap 04/21/2021,02/15/2011 ZOSTER Recombinant 04/08/2024,11/30/2023 Surgical History Surgery Date Site/Laterality Comments ROTATOR CUFF REPAIR 09/04/2015 - 09/03/2016 TARSAL TUNNEL RELEASE ADAMARIS 2006 Medical History Medical History Date Comments Pure hypercholesterolemia 02/21/2018 Seasonal allergies 02/12/[address] jalen garcia TMJ (dislocation of temporomandibular joint) Routine general medical exam ination at a health care facility 03/13/2019 Family History Medical History Relation Name Comments No Known Problems Father Heart disease Maternal Grandfather Ravin Clarke Cancer Maternal Grandmother Jeaneth Clarke Cancer Mother Nesha Kimball Lung cancer Mother Nesha Kimball Breast cancer Neg Hx Ovarian cancer Neg Hx Uterine cancer Neg Hx Relation Name Status Comments Father Alive Maternal Grandfather Ravin Clarke Maternal Grandmother Jeaneth Clarke Mother Nesha Kimball Social History Tobacco Use Types Packs/Day Years [...] on file Legal Sex Female 9:32 AM TRAVEL INSURANCE AGENT Gender Identity Female 04/21/2021 2:30 PM CDT Sexual Orientation Straight 04/21/2021 2: 30 PM CDT Obstetrics History Para Term AB IAB SAB Ectopic Multiple Livin g Live Births 3 2 2 1 2 2 Date Outcome GA Total Labor Labor/2nd/3rd Weight Sex Type Anes PTL Linda A1 A5 Name Clin AB Term Vag-S pont Living Term Vag-S pont Living Last Filed Vital Signs Vital Sign Reading Time Taken Comments Blood Pressure 102/72 07/12/2024 9:31 AM TRAVEL INSURANCE AGENT Pulse 68 07/12/2024 9:31 AM TRAVEL INSURANCE AGENT Temperature 36.4 ??C (97.5 ??F) 07/12/2024 9:31 AM CS T Respiratory Rate 12 07/12/2024 9:31 AM TRAVEL INSURANCE AGENT Oxygen Saturation 97% 07/12/2024 9:31 AM TRAVEL INSURANCE AGENT Inhaled Oxygen Concentration - - Weight 75.2 kg (165 lb 11.2 oz) 07/12/2024 9:31 AM TRAVEL INSURANCE AGENT Height 157.5 cm (5' 2 ) 07/12/2024 9:31 AM TRAVEL INSURANCE AGENT Body Mass Index 30.31 07/12/2024 9:31 AM TRAVEL INSURANCE AGENT Plan of Treatment Health Maintenance Due Date Last Done Comments Hepatitis B Screening 12/02/1991 Breast Cancer Screening-Mammogram 07/15/2024 07/15/2023, 06/04/2022, 05/04/2021, Additional history exists Cervical Cancer Screening 04/08/20252023, 04/08/2024, 04/21/2021, Additional history exists Depression Screening 07/12/2025 07/12/2024, 05/03/2024, 05/03/2023, Additional history exists Regular Well Visit/Exam 18-64 07/12/2025 07/12/2024, 04/08/2024, 05/03/2023, Additional history exists Colon Cancer Screening-Colonoscopy 02/12/2029 02/13/2024, 04/22/2021 DTaP/Tdap/Td Vaccine (3 - Td or Tdap) 04/21/2031 04/21/2021, 02/15/2011 Zoster Vaccine Completed 04/08/2024, 11/30/2023 Covid-19 Vaccine Completed 05/26/2024, , 05/27/2022, Additional history exists Influenza Vaccine Completed 05/26/2024, , 05/27/2022, Additional history exists Hepatitis C Screening Completed 06/01/2024 Pneumococcal vaccine <65 Aged Out No longer eligible based on patient's age to complete this topic Procedures Procedure Name Priority Date/Time Associated Diagnosis Comments HEPATITIS C ANTIBODY Routine 06/01/2024 8:03 AM CDT Need for hepatitis C screening test HIGH RISK HPV DNA DETECTION WITH GENOTYPING Routine 04/08/2024 9:53 AM CDT Well woman exam HM COLONOSCOPY Routine 02/13/2024 MAMMOGRAPHY Routine 07/15/2023 from Last 3 Months [...] 8:09 AM CDT Performed at: ??01 - [facility] ??[id number] Campus Administrator: Vasiliy Leach PhD, Phone: ??[phone] Eun Rodriguez MD LAB MICROBIOLOGY - GENERAL ORDERABLES Final Result [facility] - 01 * High Risk HPV DNA Detection with Genotyping (Molecular component) (04/08/2024 9:53 AM CDT) Pathologist [facility] HPV HR 16 Not Detected Not Detected [facility] Comment:Testing performed by : [facility], [address] [facility] [place]., [address] HPV HR 18 Not Detected Not Detected [facility] Comment:Testing performed by : [facility], [address] [facility] [place]., [address] HPV HR Non 16/18 Not Detected Not [...] this test have been verified by the [facility] Molecular Infectious Disease laboratory. Correlate with separately reported cytology results, as applicable. Interpretive data last revised 23 Testing performed by: [facility], [address] [facility] [place]., [address] Endocervical 04/08/2024 9:53 AM CDT 04/09/2024 10:08 AM CDT Narrative [facility] - 04/09/2024 8:57 PM CDT Clinical history and diagnosis->Routine Number of vials->1 Testing type->Screening Last menstrual period (date if known)->IUD Kavitha Shelley MD LAB BODY FLUIDS AND STOOLS O RDERABLES Final Result [facility] [address] [facility] Department [place] [address] [facility] * COLONOSCOPY (02/13/2024) Historical Provider HEALTH MAINTENANCE Final Result * MAMMOGRAPHY (07/15/2023) Pathologist [facility] Mammography Normal Historical Provider HEALTH MAINTENANCE Final Result from Last 3 Months or Most Recently Relevant to Health Maintenance Insurance [facility] [employer] [facility] [employer] Care Teams Torch Brazer Relationship Specialty Start Date End Date Eun Rodriguez MD [address] [place] [address] PCP - General Family Medicine 02/08/19 Carmen Alanis MD [address] [place] [address] Consulting Physician Gastroenterology 04/28/22
--- OUTSIDE RECORDS SUMMARY | 2024-09-02 20:18 | XMS_ITS | Encounter Summary ---
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 Gender Identity Female 04/21/2021 2:30 PM CDT Sexual Orientation Straight 04/21/2021 2: 30 PM CDT documented as of this encounter Medications at Time of Discharge cetirizine 10 mg capsule 10 mg daily mesalamine (LIALDA) 1.2 gram EC tablet daily mometasone (NASONEX) 50 mcg/actuation nasal spray USE 2 SPRAYS IN EACH NOSTRIL DAILY 17 g 11 01/27/2023 multivit with min-folic acid 200 mcg tablet,chewable Rx: Multivitamin Adult - Tablet PreviDent 5000 Booster Plus 1.1 % paste USE AT BEDIME AND EXPECTORATE TOOTHPASTE AFTER USE BUT DO NOT RINSE AFTER USE 03/19/2021 documented as of this encounter Discharge Disposition Disposition Code Departure Means Destination Discharge to home or self care documented in this encounter Plan of Treatment Not on file documented as of this encounter Procedures Procedure Name Priority Date/Time Associated Diagnosis Comments HIGH RISK HPV DNA DETECTION WITH GENOTYPING Routine 04/08/2024 9:53 AM CDT Well woman exam PAP AND HIGH RISK HPV, REFLEX TO GENOTYPING Routine 04/08/2024 9:53 AM CDT Well woman exam documented in this encounter Results * Pap and High Risk HPV and Genotyping (Cytology Component) (04/08/2024 9:53 AM CDT) Endocervical (Pap test) 04/08/2024 9:53 AM CDT 04/09/2024 6:00 AM CDT Narrative PATHOLOGY [facility] - 04/15/2024 7:43 AM CDT EPIC results best viewed via link to PDF [facility] [place] [address] Note to Patients: This report may contain a detailed description of human tissue sent by a health care provider to the laboratory for pathologic evaluation. The content of this report is essential for diagnosis and may provide important critical findings. This information may be unfamiliar to patients to review without a medical professional present. It is advised that the patient review this report in the presence of a health care provider who can answer questions and explain the details. CYTOPATHOLOGY REPORT FINAL Patient Name: ??AMANDA BUSTILLOS Gender: ??F : ??1975 (Age: 48) Address: ??[facility] [place] ??[address] Hospital #: ??[id number] Service: ??DEFAULT Location: ?? Patient Type: ??[facility] SPECIMEN Taken: ??04/08/2024 Received: ??04/09/2024 Accessioned: ??04/09/2024 Reported: ??04/15/2024 Physician(s): ??Cara Shelley M.D. ?? FINAL INTERPRETATION SOURCE OF SPECIMEN ? Liquid based Thin Prep pap with HPV: STATEMENT OF ADEQUACY ?- Satisfactory for evaluation ?- Endocervical cells/transformation zone sample present ? GENERAL CATEGORIZATION: ?- Negative for squamous intraepithelial lesion or malignancy ? Comments (Normal-Negative for High Risk HPV) HPV HR 16- Not detected HPV HR 18-Not detected HPV HR non 16/18- Not detected Interpretive Data Nucleic acid amplification for detection of high-risk Human Papilloma virus (HPV) is performed by the Jairo Nicole 6800 HPV test. This assay specifically detects HPV- 16 and HPV-18 genotypes. The following HPV genotypes are detected as high-risk HPV: HPV-31, 33, 35, 39, 45, 51, 52, 56, 58, 59, 66, and 68. This assay has been approved by the [place] Food and Drug Administration for detection of HPV in cervical specimens collected by a physician using an endocervical brush/spatula or cervical broom and placed in the ThinPrep Pap Test PreservCyt collection containers. The performance characteristics of this test have been verified by the [facility] Molecular Infectious Disease laboratory. Correlate with reported cytology results, as applicable. Interpretive data last revised 23 tcg/04/15/2024 07:43 LISY King (ASCP) Report Electronically Reviewed and Signed Out By LISY King (ASCP) 04/15/2024 07:43:41 Cervicovaginal Cytology (Pap Test) Disclaimer: The Pap test is a screening test used to detect cervical cancer and its precursors; it is not a diagnostic procedure. False negative and false positive results do occur. Pap test results should be interpreted in the context of pertinent clinical information and biopsy results as indicated. [facility] Clinical Laboratory Improvement Amendments (CLIA) mandate that cytologic and histologic results be correlated for laboratory quality process lead & improvement standards. ??FOR ALL HIGH-GRADE CASES we request submission of follow-up histological material and/or reports that have not been previously provided so that we may fulfill said required standards. ?? Gross Description A. ??Liquid based Thin Prep pap with HPV: ??Cervical/vaginal - Screening ThinPrep Clinical Diagnosis and History Last Menstrual Period: IUD The patient is a 48 year old female with routine. Report Images and scanned documents, if included only viewable in PDF version The performance characteristics of some immunohistochemical stains, in-situ hybridization and fluorescence in-situ hybridization tests and immunophenotyping by flow cytometry cited in this report (if any) were determined by the Surgical Pathology Department at [facility] as part of an ongoing quality assurance assessor program and in compliance with federally mandated regulations drawn from the Clinical Laboratory Improvement Act of 1988 (CLIA '88). ??Some of these tests rely on the use of analyte specific reagents and are subject to specific labeling requirements by the US Food and Drug Administration. ??Such diagnostic tests may only be performed in a facility that is certified by the Department of Health and Human Services as a high complexity laboratory under CLIA '88. ??The FDA has determined that such clearance or approval is not necessary. ??This test is used for clinical purposes. ??It should not be regarded as investigational or for research. ??Nevertheless, federal rules concerning the medical use of analyte specific reagents require that the following disclaimer be attached to the report: This test was developed and its performance characteristics determined by the Surgical Pathology Department of [facility]. ??It has not been cleared or approved by the U. S. Food and Drug Administration. Kavitha Shelley MD LAB CYTOLOGY ORDERABLES Meryl botello Result PATHOLOGY [facility] * High Risk HPV DNA Detection with Genotyping (Molecular component) (04/08/2024 9:53 AM CDT) HPV HR 16 Not Detected Not Detected [facility] Comment:Testing performed by : [facility], [address] [facility], [address] HPV HR 18 Not Detected Not Detected [facility] Comment:Testing performed by : [facility], [address] [facility], [address] HPV HR Non 16/18 Not Detected Not Detected [facility] Comment: Interpretive Data Nucleic acid amplification for [...] this test have been verified by the [facility] Molecular Infectious Disease laboratory. Correlate with separately reported cytology results, as applicable. Interpretive data last revised 23 Testing performed by: [facility], [address] [place]., [address] Endocervical 04/08/2024 9:53 AM CDT 04/09/2024 10:08 AM CDT Narrative [facility] - 04/09/2024 8:57 PM CDT Clinical history and diagnosis->Routine Number of vials->1 Testing type->Screening Last menstrual period (date if known)->IUD Kavitha Shelley MD LAB BODY FLUIDS AND STOOLS O RDERABLES Final Result [facility] [address] [facility] [place] [address] [facility] documented in this encounter Visit Diagnoses Diagnosis Well woman exam Routine general medical examination at a health care facility documented in this encounter Care Teams Durable Medical Equipment Repairer Relationship Specialty Start Date End Date Eun Rodriguez MD [address] [place] [address] PCP - General Family Medicine 02/08/19 Carmen Alanis MD [address] [facility] [address] [place] [address] Consulting Physician Gastroenterology 04/28/22 documented as of this encounter
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
--- OUTSIDE RECORDS SUMMARY | 2024-09-02 20:18 | XMS_ITS | Encounter Summary ---
Author Organization [facility] Address [address] [place] [address] Care Team Providers Care Asphalt Spreader Name Role Phone Eun Rodriguez MD Primary Care Provi ashli Carmen Alanis MD Unavailable [phone] Reason for Visit * Neurology (Routine) - Closed Specialty Diagnoses / Procedures Referred By Michi marc Referred To Contact Diagnoses Tingling of both feet Procedures EMG/NCV - Eun Rodriguez MD [facility] [address] [place] [address] Phone: tel: fax: [facility] [address] [place] [phone] Referral ID Status Reason Start Date Expiration Date Visits Re quested Visits Authorized [id number] Closed 05/03/2024 06/02/2025 1 1 Encounter Details Date Type Department Care Team (Late st Contact Info) Description 07/15/2024 9:00 AM OVEN ATTENDANT Therapy [facility] OP Physical Therapy [address] [address] Tingling of both feet Social History Tobacco Use Types Packs/Day Years [...] on file 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 ATTENDANT documented in this encounter Plan of Treatment Not on file documented as of this encounter Visit Diagnoses Diagnosis Tingling of both feet documented in this encounter Orders Imaging Orders Without Results Count Last Order ed Date First Ordered Date EMG/NCV 1 07/15/2024 documented in this encounter Care Teams Asphalt Spreader Relationship Specialty Start Date End Date Eun Rodriguez MD [address] [place] [address] PCP - General Family Medicine 02/08/19 Carmen Alanis MD [address] [place] [address] [place] [address] Consulting Physician Gastroenterology 04/28/22 documented as of this encounter
--- OUTSIDE RECORDS SUMMARY | 2024-09-02 20:18 | XMS_ITS | Encounter Summary ---
Author Organization [facility] Healthcare Address [address] [place] [address] Care Team Providers Care Security Administrator Name Role Phone Eun Rodriguez MD Primary Care Provi ashli Carmen Alanis MD Unavailable [phone] Reason for Visit * Reason Onset Date Comments Symptom Based Call 07/24/2024 Encounter Details Date Type Department Care Team (Late st Contact Info) Description 07/24/2024 Telephone [facility] Family Medicine [address] [phone] Eun Rodriguez MD [address] [place] [address] Symptom Based Call Social History Tobacco Use Types Packs/Day Years [...] on file 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 6 tablet 07/30/2024 08/04/2024 documented in this encounter Miscellaneous Notes * Telephone Encounter - Eun Rodriguez MD - 07/30/2024 7:01 AM CLUB CAR ATTENDANT Prescription sent, thank you CAR ATTENDANT * Addendum Note - Eun Rodriguez MD - 07/30/2024 7:01 AM CLUB CAR ATTENDANT Addended by: EUN RODRIGUEZ on: 07/30/2024 07:01 AM Modules accepted: Orders CAR ATTENDANT * Telephone Encounter - Hanna Naylor - 07/29/2024 2:34 PM CST Pt returned the call. I was not able to reach a nurse. Pt asked me to read the message to her. I read the message to the pt. She vu the message and Asked to have the medication sent to [facility] in [place]. [facility] [phone] Thanks sallie CAR ATTENDANT * Telephone Encounter - Nancy Gardner MA - 07/29/2024 2:22 PM CST Call Back Caller???s Concern: Patient warm transferred to back line Does message need to be routed? No CAR ATTENDANT * Telephone Encounter - Augusta Garcia LPN - 07/29/2024 1:24 PM CST LM, awaiting return call CAR ATTENDANT * Telephone Encounter - Augusta Garcia LPN - 07/26/2024 11:20 AM CST LM, awaiting return call CAR ATTENDANT * Telephone Encounter - Eun Rodriguez MD - 07/25/2024 6:34 PM CLUB CAR ATTENDANT The patient was in close contact for an hour with the patient with whooping cough, I would recommend we give her Zithromax. I left a message on her phone to give us a call. If we could please try to reach her before the weekend I would be appreciative CAR ATTENDANT * Telephone Encounter - Hi Izaguirre LPN - 07/24/2024 2:00 PM CST Pt informed, voiced understanding. She states she was in contact with the person with whooping cough for one hour. Pt informed if she develops symptoms to please contact us. CAR ATTENDANT * Telephone Encounter - Eun Rodriguez MD - 07/24/2024 1:29 PM CLUB CAR ATTENDANT I looked up the CDC guidelines. They normally recommend antibiotics for household contacts, so if someone in your house has it. People at high-risk so people with asthma or COPD. And those who were going to take care of people who are high-risk. Does she consider herself any of those people? CAR ATTENDANT * Telephone Encounter - Pamela Ibanez - 07/24/2024 10:47 AM CLUB CAR ATTENDANT Symptom Based Call Chief Complaint(s): Whooping Cough Exposure Duration: Monday What type of symptom(s) is the patient experiencing? Non-Emergent. Is this a new or reoccurring symptom(s)? New What have you tried to help your symptom(s)? Nothing Why was appointment not scheduled? Requesting advice from clinical customer care team coach. 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 She is not having symptoms.She is wanting to know if she needs to have an antibiotic. Shot Records shows last T DAP was in 2020. She uses [employer] #[id number] Does message need to be routed? Yes-Action Needed CAR ATTENDANT documented in this encounter Plan of Treatment Not on file documented as of this encounter Visit Diagnoses Diagnosis Pertussis exposure- Primary documented in this encounter Care Teams Security Administrator Relationship Specialty Start Date End Date Eun Rodriguez MD [facility] [address] [place] [address] PCP - General Family Medicine 02/08/19 Carmen Alanis MD [address] [facility] [address] [place] [address] Consulting Physician Gastroenterology 04/28/22 documented as of this encounter
--- OUTSIDE RECORDS SUMMARY | 2024-09-02 20:19 | XMS_ITS | Encounter Summary ---
Author Organization [facility] Address [address] [address] Care Team Providers Care Traffic Rate Computer Name Role Phone Eun Rodriguez MD Primary Care Provi ashli Reason for Visit * Reason Onset Date Comments lab ordere 02/15/2021 Encounter Details Date Type Department Care Team (Late st Contact Info) Description 02/15/2021 Telephone [facility] Family Medicine [address] [phone] Eun Rodriguez MD [address] [address] lab ordere Social History Tobacco Use Types Packs/Day Years Used Date Smoking Tobacco: Never Smokeless Tobacco: Never Alcohol Use Standard Drinks/Week Comments Yes 0 (1 standard drink = 0.6 oz pur e alcohol) AUDIT-C Answer Date Recorded Frequency of Alcohol Consumption 2-4 times a mon04/16/2020 Average Number of Drinks 1 or 2 020 Frequency of Binge Drinking Not on file 04/04 PHQ-2 Answer Date Recorded PHQ-2 Total Score (If total score is 3 or more points, staff should administer the PHQ-9) 0 04/16/2020 Comments No Sex and Gender Information Value Date Recorded Sex Assigned at Not on file 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 * Telephone Encounter - Eun Rodriguez MD - 02/15/2021 10:27 AM CDT Labs ordered * Telephone Encounter - Maryam Polanco - 02/15/2021 9:57 AM CDT Pt is requesting a lab order for anything you would like her to have drawn for her 04-21-21 jase phys. [phone]. Thanks. [facility] [phone] documented in this encounter Plan of Treatment Not on file documented as of this encounter Procedures Procedure Name Priority Date/Time Associated Diagnosis Comments THYROID FUNCTION CASCADE Routine 04/10/2021 8:18 AM CDT Screening for thyroid disorder CBC WITH AUTO DIFFERENTIAL Routine 04/10/2021 8:18 AM CDT Screening, anemia, deficiency, iron LIPID PANEL Routine 04/10/2021 8:18 AM CDT Screening, lipid COMPREHENSIVE METABOLIC PANEL Routine 04/10/2021 8:18 AM CDT Screening for diabetes mellitus documented in this encounter Results * TSH reflex to free T4 (04/10/2021 8:18 AM CDT) Pathologist [facility] [place] TSH 1.810 0.450 - 4.500 uIU/mL [facility] - 01 Comment: No apparent thyroid disorder. Additional testing not indicated. In rare instances, Secondary Hypothyroidism as well as Subclinical Hypothyroidism have been reported in some patients with normal TSH values. Blood specimen (specimen) 04/10/2021 8:18 AM CDT 04/10/2021 Narrative [facility] - 04/11/2021 8:08 AM CDT Performed at: ?? - [facility] ??[id number] Embroidery Cutter: Vasiliy Leach PhD, Phone: ??[phone] Eun Rodriguez MD LAB BLOOD ORDERABLE S Final Result Performing Organization Address [facility] de Phone Number [facility] - 01 * (ABNORMAL) Lipid panel (04/10/2021 8:18 AM CDT) Pathologist [facility] [place] Cholesterol 178 100 - 199 mg/dL [facility] - 01 Triglycerides 82 0 - 149 mg/dL [facility] - 01 HDL Cholesterol 48 >39 mg/dL [facility] - 01 VLDL 15 5 - 40 mg/dL [facility] - 01 LDL, calculated 115(H) 0 - 99 mg/dL [facility] - 01 Blood specimen (specimen) 04/10/2021 8:18 AM CDT 04/10/2021 Narrative [facility] - 04/11/2021 8:08 AM CDT Performed at: ??01 - [facility] ??[id number] Embroidery Cutter: Vasiliy Leach PhD, Phone: ??[phone] Eun Rodriguez MD LAB BLOOD ORDERABLE S Final Result Performing Organization Address [facility] de Phone Number [facility] - 01 * CBC with auto differential (04/10/2021 8:18 AM CDT) WBC 8.9 3.4 - 10.8 x10E3/uL [facility] - 01 RBC 4.70 3.77 - 5.28 x10E6/uL [facility] - 01 Hgb 14.0 11.1 - 15.9 g/dL [facility] - 01 Hct 42.8 34.0 - 46.6 % [facility] - 01 MCV 91 79 - 97 fL [facility] - 01 MCH 29.8 26.6 - 33.0 pg [facility] - 01 MCHC 32.7 31.5 - 35.7 g/dL [facility] - 01 Rdw 12.3 11.7 - 15.4 % [facility] - 01 Platelets 373 150 - 450 x10E3/uL [facility] - 01 Neutrophils pct 64 Not Estab. % [facility] - 01 Lymphs pct 27 Not Estab. % [facility] - 01 Monocytes pct 8 Not Estab. % [facility] - 01 Eosinophils pct 1 Not Estab. % [facility] - 01 Basophil pct 0 Not Estab. % [facility] - 01 Neutrophil abs 5.7 1.4 - 7.0 x10E3/uL [facility] - 01 Lymphs (Absolute) 2.4 0.7 - 3.1 x10E3/uL [facility] - 01 Monocyte abs 0.7 0.1 - 0.9 x10E3/uL [facility] - 01 Eosinophils, abs 0.1 0.0 - 0.4 x10E3/uL [facility] - 01 Basophils, abs 0.0 0.0 - 0.2 x10E3/uL [facility] - 01 Immature Granulocytes 0 Not Estab. % [facility] - 01 Immature Grans (Abs) 0.0 0.0 - 0.1 x10E3/uL [facility] - 01 Blood specimen (specimen) 04/10/2021 8:18 AM CDT 04/10/2021 Narrative [facility] - 04/11/2021 8:08 AM CDT Performed at: ??01 - [facility] [address] ??[id number] Embroidery Cutter: Vasiliy Leach PhD, Phone: ??[phone] us Eun Rodriguez MD LAB BLOOD ORDERABLE S Final Result [facility] - 01 * Comprehensive metabolic panel (04/10/2021 8:18 AM CDT) Glucose 85 65 - 99 mg/dL [facility] - 01 BUN 12 6 - 24 mg/dL [facility] - 01 Creatinine, Serum 0.85 0.57 - 1.00 mg/dL [facility] - 01 eGFR If NonAfricn Am 82 >59 mL/min/1.7 3 [facility] - 01 eGFR If Africn Am 94 >59 mL/min/1.7 3 [facility] - 01 Comment: [facility] currently reports eGFR in compliance with the current ??recommendations of the National Kidney Foundation. [facility] will ??update reporting as new guidelines are published from the NKF-ASN ??Task force. BUN/creat ratio 14 9 - 23 [facility] - 01 Sodium 141 134 - 144 mmol/L [facility] - 01 Potassium, sr 4.4 3.5 - 5.2 mmol/L [facility] - 01 Chloride 103 96 - 106 mmol/L [facility] - 01 CO2 22 20 - 29 mmol/L [facility] - 01 Calcium 9.4 8.7 - 10.2 mg/dL [facility] - 01 Protein, sr 6.9 6.0 - 8.5 g/dL [facility] - 01 Albumin 4.5 3.8 - 4.8 g/dL [facility] - 01 Globulin, Total 2.4 1.5 - 4.5 g/dL [facility] - 01 A/G Ratio 1.9 1.2 - 2.2 [facility] - 01 Bilirubin, Total 0.6 0.0 - 1.2 mg/dL [facility] - 01 Alk phos 75 48 - 121 IU/L [facility] - 01 AST 17 0 - 40 IU/L [facility] - 01 ALT 13 0 - 32 IU/L [facility] - 01 Blood specimen (specimen) 04/10/2021 8:18 AM CDT 04/10/2021 Narrative [facility] - 04/11/2021 8:08 AM CDT Performed at: ??01 - [facility] [address] ??[id number] Embroidery Cutter: Vasiliy Leach PhD, Phone: ??[phone] us Eun Rodriguez MD LAB BLOOD ORDERABLE S Final Result [facility] - 01 documented in this encounter Visit Diagnoses Diagnosis Screening, lipid- Primary Screening, anemia, deficiency, iron Screening for iron deficiency anemia Screening for diabetes mellitus Screening for thyroid disorder documented in this encounter Care Teams Traffic Rate Computer Relationship Specialty Start Date End Date Eun Rodriguez MD [facility] [address] [place] [address] PCP - General Family Medicine 02/08/19 documented as of this encounter
--- OUTSIDE RECORDS SUMMARY | 2024-09-02 20:19 | XMS_ITS | Encounter Summary ---
Author Organization [facility] Address [address] [address] Care Team Providers Care Director Index Name Role Phone Eun Rodriguez MD Primary Care Provi ashli Encounter Details Date Type Department Care Team (Late st Contact Info) Description 04/15/2019 Telephone [facility] Family Medicine [address] [phone] Lacey Christian MA Social History Tobacco Use Types Packs/Day Years Used Date Smoking Tobacco: Never Smokeless Tobacco: Never Alcohol Use Standard Drinks/Week Comments Yes 0 (1 standard drink = 0.6 oz pur e alcohol) AUDIT-C Answer Date Recorded Frequency of Alcohol Consumption 2-4 times a mon03/13/2019 Average Number of Drinks 1 or 2 019 Frequency of Binge Drinking Not on file 03/04 Comments No Sex and Gender Information Value Date Recorded Sex Assigned at Not on file 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 Informed pt of normal results. Pt voiced understanding * Telephone Encounter - Lacey Christian MA - 04/15/2019 2:39 PM CDT ----- Message from Eun Rodriguez MD sent at 04/12/2019 11:11 AM CDT ----- Pt's mammogram is normal. Thank you documented in this encounter Plan of Treatment Not on file documented as of this encounter Visit Diagnoses Not on filedocumented in this encounter Care Teams Director Index Relationship Specialty Start Date End Date Eun Rodriguez MD [address] [place] [address] PCP - General Family Medicine 02/08/19 documented as of this encounter
--- OUTSIDE RECORDS SUMMARY | 2024-09-02 20:19 | XMS_ITS | Encounter Summary ---
Author Organization [facility] Healthcare Address [address] [place] [address] Care Team Providers Care Customer Service Consultant Name Role Phone Eun Rodriguez MD Primary Care Provi ashli Carmen Alanis MD Unavailable [phone] Reason for Visit * Reason Onset Date Comments Additional Services Or Orders 11/28/2023 Encounter Details Date Type Department Care Team (Late st Contact Info) Description 11/28/2023 Telephone [facility] Family Medicine [address] [phone] Eun Rodriguez MD [address] [place] [address] Additional Services Or Orders Social History Tobacco Use Types Packs/Day Years [...] on file 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 Would like to come in and get vaccine. Does message need to be routed? Yes-Action Needed * Telephone Encounter - Bi Canas - 11/28/2023 1:50 PM CDT Call Back Caller???s Concern: Spoke with patient returning call advised of message stated she turns 48 on 12[birth year]01 but will call insurance to make sure Does message need to be routed? Yes-FYI Only * Telephone Encounter - Penny Arevalo LPN - 11/28/2023 11:16 AM CDT Lm awaiting call back * Telephone Encounter - Eun Rodriguez MD - 11/28/2023 10:44 AM CDT Not that I know of. She would have to check with her insurance * Telephone Encounter - Montse Loomis - 11/28/2023 9:18 AM CDT Additional Services or Orders Type of Service Requested:Nurse Visit Reason for Request (e.g. condition/symptom, date of COVID exposure if applicable): shingles vaccine Details Regarding Additional Services (e.g. type of home health, type of equipment, type of test, etc.): N/A Where will services be performed? (if outside of the practice, facility name, address, phone/fax offacility): in office Additional Comments: N/A Does message need to be routed? Yes-Action Needed documented in this encounter Plan of Treatment Not on file documented as of this encounter Visit Diagnoses Not on filedocumented in this encounter Care Teams Customer Service Consultant Relationship Specialty Start Date End Date Eun Rodriguez MD [address] [place] [address] PCP - General Family Medicine 02/08/19 Carmen Alanis MD [address] [place] [address] [place] [address] Consulting Physician Gastroenterology 04/28/22 documented as of this encounter
--- OUTSIDE RECORDS SUMMARY | 2024-09-02 20:19 | XMS_ITS | Encounter Summary ---
Author Organization [facility] Address [address] [address] Care Team Providers Care Dairy Associate Name Role Phone Eun Rodriguez MD Primary Care Provi ashli Reason for Referral * Diagnostic Imaging (Routine) - Closed Specialty Diagnoses / Procedures Referred By Contac t Referred To Contact Procedures Screening Mammogram [facility] [address] [address] Phone: tel: fax: Referral ID Status Reason Start Date Expiration Date Visits Re quested Visits Authorized [id number] Closed 04/27/2020 05/27/2021 1 1 Encounter Details Date Type Department Care Team (Late st Contact Info) Description 04/27/[address] [phone] Eun Rodriguez MD [address] [place] [address] Social History Tobacco Use Types Packs/Day Years [...] on file 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 Gender Identity Female 04/21/2021 2:30 PM CDT Sexual Orientation Straight 04/21/2021 2: 30 PM CDT documented as of this encounter Progress Notes * Cat Mann MA - 04/27/2020 2:41 PM CDT Mammogram report scanned documented in this encounter Plan of Treatment Not on file documented as of this encounter Procedures Procedure Name Priority Date/Time Associated Diagnosis Comments SCREENING MAMMOGRAM Schedule Routine, Re ad Routine (OP Routine) 04/23/2020 documented in this encounter Results * Screening Mammogram (04/23/2020) Anatomical Region Laterality Modality Breast N/A Mammography Historical Provider MD NEVAREZ MAMMO PROCEDURES Meryl l Result documented in this encounter Visit Diagnoses Not on filedocumented in this encounter Care Teams Dairy Associate Relationship Specialty Start Date End Date Eun Rodriguez MD [address] [place] [address] PCP - General Family Medicine 02/08/19 documented as of this encounter
--- OUTSIDE RECORDS SUMMARY | 2024-09-02 20:19 | XMS_ITS | Encounter Summary ---
Author Organization [facility] Address [address] [address] Care Team Providers Care Mechanical Commissioning Engineer Name Role Phone Eun Rodriguez MD Primary Care Provi ashli Reason for Visit * Reason Comments Annual Exam Patient is here for wellness exam Encounter Details Date Type Department Care Team (Late st Contact Info) Description 04/21/2021 2:45 PM CDT Office Visit [facility] Family Medicine [address] [phone] Eun Rodriguez MD [address] [address] Well adult exam (Primary Dx); Immunization due; Class 1 obesity due to excess calories with serious comorbidity and body mass index (BMI) of 30.0 to 30.9 in adult; Pure hypercholesterolemia ; Seasonal allergies; Ulcerative colitis without complications, unspecified location (HCC); Encounter for screening mammogram for malignant neoplasm of breast; Cervical cancer screening; Vaginal discharge Social History Tobacco Use Types Packs/Day Years [...] PHQ-2 Answer Date Recorded PHQ-2 Total Score 0 04/21/2021 Comments No Sex and Gender Information Value Date Recorded Sex Assigned at Not on file 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 Gender Identity Female 04/21/2021 2:30 PM CDT Sexual Orientation Straight 04/21/2021 2: 30 PM CDT documented as of this encounter Last Filed Vital Signs Vital Sign Reading Time Taken Comments Blood Pressure 108/70 04/21/2021 2:50 PM CDT Pulse 66 04/21/2021 2:50 PM CDT Temperature 36.9 ??C (98.5 ??F) 04/21/2021 2:50 PM CD T Respiratory Rate 16 04/21/2021 2:50 PM CDT Oxygen Saturation 99% 04/21/2021 2:50 PM CDT Inhaled Oxygen Concentration - - Weight 75 kg (165 lb 6.4 oz) 04/21/2021 2:50 PM CDT Height 157.5 cm (5' 2 ) 04/21/2021 2:50 PM CDT Body Mass Index 30.25 04/21/2021 2:50 PM CDT documented in this encounter Progress Notes * Eun Rodriguez MD - 04/21/2021 2:45 PM CDT Images from the original note were not included. Subjective/Objective Patient ID: Lidya Bustillos is a 45 y.o. female. Chief Complaint Chief Complaint Patient presents with ??? Annual Exam Patient is here for wellness exam HPI Diet-trying to eat healthy Exercise- peloton, walking Pt would like a pap- she does have itching prior to her period, but otherwise no symptoms. Periods are normal. Pt does not feel threatened at home, school, or socially. Chronic conditions: -allergic rhinitis- currently stable, on zyrtec and nasonex -UC- following with Dr Alanis, on lialda, currently doing well. -HLP- labs improved, working on healthy changes Review of Systems Constitutional: Negative for appetite change and fatigue. HENT: Negative for hearing loss and trouble swallowing. Eyes: Negative for visual disturbance. Respiratory: Negative for cough and shortness of breath. Cardiovascular: Negative for chest pain. Gastrointestinal: Negative for abdominal pain, constipation, diarrhea, nausea and vomiting. Genitourinary: Positive for vaginal discharge. Negative for dysuria and menstrual problem. Musculoskeletal: Negative for arthralgias and myalgias. Skin: Negative for rash. No skin lesions Neurological: Negative for syncope and headaches. Psychiatric/Behavioral: Negative for dysphoric mood. The patient is not nervous/anxious. Breast: Negative for tenderness and lump(s). Past medical history, surgical history, and social history were reviewed BP 108/70 (BP Location: Left arm, Patient Position: Sitting) Pulse 66 Temp 36.9 ??C (98.5 ??F) (Temporal) Resp 16 Ht 157.5 cm (5' 2 ) Wt 75 kg (165 lb 6.4 oz) LMP 04/15/2021 SpO2 99% BMI 30.25 kg/m?? Physical Exam Vitals and nursing note reviewed. Exam conducted with a underwriting clerk present. Constitutional: General: She is not in acute distress. Appearance: She is well-developed. HENT: Head: Normocephalic and atraumatic. Right Ear: Tympanic membrane, ear canal and external ear normal. Left Ear: Tympanic membrane, ear canal and external ear normal. Nose: Nose normal. Mouth/Throat: Mouth: Mucous membranes are moist. Pharynx: Oropharynx is clear. Eyes: Conjunctiva/sclera: Conjunctivae normal. Pupils: Pupils are equal, round, and reactive to light. Neck: Thyroid: No thyromegaly. Cardiovascular: Rate and Rhythm: Normal rate and regular rhythm. Heart sounds: Normal heart sounds. No murmur heard. No friction rub. No gallop. Pulmonary: Effort: Pulmonary effort is normal. Breath sounds: Normal breath sounds. No wheezing or rales. Chest: Breasts: Right: No inverted nipple, mass, nipple discharge, skin change or tenderness. Left: No inverted nipple, mass, nipple discharge, skin change or tenderness. Abdominal: General: Bowel sounds are normal. There is no distension. Palpations: Abdomen is soft. There is no mass. Tenderness: There is no abdominal tenderness. There is no guarding or rebound. Genitourinary: General: Normal vulva. Labia: Right: No rash, tenderness, lesion or injury. Left: No rash, tenderness, lesion or injury. Vagina: Vaginal discharge present. Cervix: No cervical motion tenderness or discharge. Uterus: Normal. Adnexa: Right: No mass, tenderness or fullness. Left: No mass, tenderness or fullness. Musculoskeletal: Cervical back: Neck supple. Lymphadenopathy: Cervical: No cervical adenopathy. Upper Body: Right upper body: No supraclavicular or axillary adenopathy. Left upper body: No supraclavicular or axillary adenopathy. Skin: General: Skin is warm and dry. Neurological: Mental Status: She is alert and oriented to person, place, and time. Motor: No abnormal muscle tone. Psychiatric: Behavior: Behavior normal. Thought Content: Thought content normal. Lab Results Component Value Date CHOL 178 04/10/2021 CHOL 180 05/09/2020 CHOL 164 03/22/2019 Lab Results Component Value Date HDL 48 04/10/2021 HDL 46 05/09/2020 HDL 50 03/22/2019 Lab Results Component Value Date LDLCALC 115 (H) 04/10/2021 LDLCALC 123 (H) 05/09/2020 LDLCALC 98 03/22/2019 Lab Results Component Value Date TRIG 82 04/10/2021 TRIG 56 05/09/2020 TRIG 78 03/22/2019 No results found for: POCCHDLR No results found for: POCNONHDL No results found for: POCCHLPL Lab Results Component Value Date TSH 1.810 04/10/2021 Chemistry Lab Results Component Value Date SODIUM 141 04/10/2021 POTASSIUM 4.5 02/15/2018 CHLORIDE 103 04/10/2021 CO2 22 04/10/2021 BUNSER 12 04/10/2021 CREATININE 0.85 04/10/2021 GLUCOSE 85 04/10/2021 CALCIUM 9.4 04/10/2021 BILITOT 0.6 04/10/2021 PROTEIN 6.9 04/10/2021 ALBUMIN 4.5 04/10/2021 ALKPHOS 75 04/10/2021 AST 17 04/10/2021 ALT 13 04/10/2021 Lab Results Component Value Date WBC 8.9 04/10/2021 HGB 14.0 04/10/2021 HCT 42.8 04/10/2021 MCV 91 04/10/2021 LABPLAT 373 04/10/2021 Assessment/Plan Diagnoses and all orders for this visit: Well adult exam (Primary) Assessment & Plan: Work on healthy low carb diet Healthy activity for 30 minutes daily Wear sun screen, seat belts No texting/drinking and driving PMH updated: Last PAP: today Last mammogram: Ordered Last colonoscopy/cologuard: 12/21/15-repeat in 10 years Last Flu: yearly Last COVID: up to date Immunization due - Tdap vaccine greater than or equal to 7yo IM Class 1 obesity due to excess calories with serious comorbidity and body mass index (BMI) of 30.0 to 30.9 in adult Assessment & Plan: BMI Follow-up includes: nutrition counseling. Pure hypercholesterolemia Assessment & Plan: Improved Continue healthy changes Seasonal allergies Assessment & Plan: Stable Continue current regimen Ulcerative colitis without complications, unspecified location (HCC) Assessment & Plan: Continue to follow with GI Continue current regimen Call for questions or concerns Encounter for screening mammogram for malignant neoplasm of breast Cervical cancer screening - Screening Mammogram Bilateral W [place]; Future - Pap and High Risk HPV, reflex to Genotyping; Future Vaginal discharge Comments: Reviewed most would be covered by the Pap, but she did want to be completely [place] her test was negative Sure swab ordered Orders: - SURESWAB(R), VAGINOSIS/VAGINITIS PLUS; Future Patient/parent was counseled on medication risk, side effects, and possible complications. Patient/parent was counseled on how to properly take the medication and to call with any adverse reactions. Patient/parent was advised that if anything changes or worsens, to contact the office. Patient/parent stated understanding. documented in this encounter Miscellaneous Notes * Assessment & Plan Note - Eun Rodriguez MD - 04/21/2021 3:17 PM CDTAssociated Problem(s): Ulcerative colitis (HCC) Continue to follow with GI Continue current regimen Call for questions or concerns * Assessment & Plan Note - Eun Rodriguez MD - 04/21/2021 3:17 PM CDTAssociated Problem(s): Seasonal allergies Stable Continue current regimen * Assessment & Plan Note - Eun Rodriguez MD - 04/21/2021 3:16 PM CDTAssociated Problem(s): Pure hypercholesterolemia Improved Continue healthy changes * Assessment & Plan Note - Eun Rodriguez MD - 04/21/2021 3:16 PM CDTAssociated Problem(s): Class 1 obesity due to excess calories with serious comorbidity and body mass index (BMI) of 30.0 to 30.9 in adult (Resolved 04/28/2022) BMI Follow-up includes: nutrition counseling. * Assessment & Plan Note - Eun Rodriguez MD - 04/21/2021 3:12 PM CDTAssociated Problem(s): Well adult exam Work on healthy low carb diet Healthy activity for 30 minutes daily Wear sun screen, seat belts No texting/drinking and driving PMH updated: Last PAP: today Last mammogram: Ordered Last colonoscopy/cologuard: 12/21/15-repeat in 10 years Last Flu: yearly Last COVID: up to date documented in this encounter Plan of Treatment Not on file documented as of this encounter Procedures Procedure Name Priority Date/Time Associated Diagnosis Comments PAP AND HIGH RISK HPV, REFLEX TO GENOTYPING Routine 04/21/2021 4:39 PM CDT Cervical cancer screening SURESWAB(R), VAGINOSIS/VAGINITIS PLUS Routine 04/21/2021 4:39 PM CDT Vaginal discharge documented in this encounter Results * Pap and High Risk HPV, reflex to Genotyping (04/21/2021 4:39 PM CDT) CLINICAL INFORMATION: [facility] Comment:Routine exam LMP [facility] Comment:04/15/21 Previous Pap [facility] Comment:INFORMATION NOT PROV IDED Prev. Bx [facility] Comment:INFORMATION NOT PROV IDED SOURCE: [facility] Comment:Cervix, Endocervix Pap, specimen adequacy [facility] Comment: Satisfactory for evaluation. Endocervical/transformation zone component absent. HPV interp [facility] Comment:Negative for intraep ithelial lesion or malignancy. [employer] [facility] Comment: MMW, CT(ASCP) CT screening location: [place] [address] [place] [address] Comment [facility] Comment: EXPLANATORY NOTE: The Pap is a screening test for cervical cancer. It is not a diagnostic test and is subject to false negative and false positive results. It is most reliable when a satisfactory sample, regularly obtained, is submitted with relevant clinical findings and history, and when the Pap result is evaluated along with historic and current clinical information. Human papillomavirus DNA, High Risk E6/E7 Not Detected NOT DETECTED [employer] [facility] [place] Comment: Not Detected High Risk HPV types (16,18,31,33,35,39,45,51,52, 56,58,59,66,68) were not detected. Other HPV types which cause anogenital lesions may be present. The significance of the other types of HPV in malignant processes has not been established. Methodology: Real Time PCR ? Swab 04/21/2021 4:39 PM CDT 04/22/2021 8:29 AM CDT us Eun Rodriguez MD LAB CYTOLOGY ORDERA BLES Final Result [facility] [address] [place] [id number] [employer] [facility] [address] [place] [address] * SURESWAB(R), VAGINOSIS/VAGINITIS PLUS (04/21/2021 4:39 PM CDT) C. trachomatis RNA TNP [employer] [facility] Comment: UNABLE TO REPORT The quantity of specimen submitted was not sufficient to verify results. Lactobacillus species 7.1 Log (cells/m L) [employer] [facility] Atopobium vaginae NOT DETECTED Log (cells/m L) [employer] [facility] [facility] Megasphaera species NOT DETECTED Log (cells/m L) [employer] [facility] [facility] Gardnerella vaginalis qn NOT DETECTED Log (cells/m L) [employer] [facility] [facility] BV category NOT SUPPORTIVE [employer] Comment: REFERENCE RANGE: ??BV Category: NOT SUPPORTIVE Methodology: Real-Time PCR NOT SUPPORTIVE OF BV: The pattern of results is not supportive of a diagnosis of BV: 1) Presence of Lactobacillus spp., G. vaginalis levels less than 6.0 log cells/mL, and absence of A. vaginae and Megasphaera spp; or 2) Absence of all targeted organisms; or 3) Absence of Lactobacillus spp. plus G. vaginalis detected at levels less than 6.0 log cells/mL and absence of A. vaginae and Megasphaera spp. EQUIVOCAL FOR BV: The pattern of results is neither supportive nor not supportive of a diagnosis of BV. The patient may be in transition into or out of BV: Presence of Lactobacillus spp. plus G. vaginalis (greater or equal to 6.0 log cells/mL) and/or one of the other BV-associated pathogens. SUPPORTIVE OF BV: The pattern of results is supportive of a diagnosis of BV: Absence of Lactobacillus spp. and presence of G. vaginalis greater than or equal to 6.0 log cells/mL and/or one or both of the other BV-associated pathogens. Concentration for Lactobacilli (L. acidophilus/crispatus, L. jensenii) are collectively reported under the term Lactobacillus spp. , as these species are among the peroxide producing Lactobacilli thought to be protective against bacterial vaginosis. Atopobium vaginae, Megasphaera spp., and Gardnerella (greater than 6.0 log cells/mL) have been associated with vaginosis when present in the absence of peroxidase producing Lactobacilli. This test was developed and its analytical performance characteristics have been determined by [employer]. It has not been cleared or approved by FDA. This assay has been validated pursuant to the CLIA regulations and is used for clinical purposes. Trichomonas vaginalis TNP [employer] [facility] [facility] Comment: UNABLE TO REPORT The quantity of specimen submitted was not sufficient to verify results. C. albicans DNA NOT DETECTED [facility] [employer] Destiney glabrata, DNA NOT DETECTED [employer] [facility] C. tropicalis, DNA NOT DETECTED [employer] [facility] [facility] C. parapsilosis, DNA NOT DETECTED [employer] [facility] Comment: REFERENCE RANGE: NOT DETECTED Methodology: Real-Time PCR This test was developed and its analytical performance characteristics have been determined by [employer] [facility]. It has not been cleared or approved by FDA. This assay has been validated pursuant to the CLIA regulations and is used for clinical purposes. Vaginal 04/21/2021 4:39 PM CDT 04/22/2021 1:10 AM CDT us Eun Rodriguez MD LAB BLOOD ORDERABLE S Final Result [facility] [employer] [facility] [address] [place] [address] documented in this encounter Visit Diagnoses Diagnosis Well adult exam- Primary Routine general medical examination at a health care facility Immunization due Class 1 obesity due to excess calories with serious comorbidity and body mass index (BMI) of 30.0 to 30.9 in adult Pure hypercholesterolemia Seasonal allergies Allergic rhinitis, cause unspecified Ulcerative colitis without complications, unspecified location ([facility]) Encounter for screening mammogram for malignant neoplasm of breast Cervical cancer screening Screening for malignant neoplasm of the cervix Vaginal discharge Leukorrhea, not specified as infective documented in this encounter Historical Medications * This list may reflect changes made after this encounter. PreviDent 5000 Booster Plus 1.1 % paste USE AT BEDIME AND EXPECTORATE TOOTHPASTE AFTER USE BUT DO NOT RINSE AFTER USE 03/19/2021 added in this encounter Orders Immunization/Injection Count Last Ordered Date First Ordered Date TDAP VACCINE GREATER THAN OR EQUAL TO 7YO IM 1 04/21/2021 documented in this encounter Care Teams Mechanical Commissioning Engineer Relationship Specialty Start Date End Date Eun Rodriguez MD [address] [place] [id number] PCP - General Family Medicine 02/08/19 documented as of this encounter
--- OUTSIDE RECORDS SUMMARY | 2024-09-02 20:19 | XMS_ITS | Encounter Summary ---
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
--- OUTSIDE RECORDS SUMMARY | 2024-09-02 20:19 | XMS_ITS | Encounter Summary ---
Author Organization [facility] Address [address] [address] Care Team Providers Care Mechanical Designer Name Role Phone Eun Rodriguez MD Primary Care Provi ashli Carmen Alanis MD Unavailable [phone] Reason for Visit * Reason Comments Follow-up AUB and IUD check. 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 Gender Identity Female 04/21/2021 2:30 PM CDT Sexual Orientation Straight 04/21/2021 2: 30 PM CDT documented as of this encounter Last Filed Vital Signs Vital Sign Reading Time Taken Comments Blood Pressure 114/68 05/15/2023 3:02 PM CDT Pulse - - Temperature - - Respiratory Rate - - Oxygen Saturation - - Inhaled Oxygen Concentration - - Weight 78 kg (172 lb) 05/15/2023 3:02 PM CDT Height 157.5 cm (5' 2.01 ) 05/15/2023 3:02 PM CD T Body Mass Index 31.45 05/15/2023 3:02 PM CDT documented in this encounter Progress Notes * Kavitha Shelley MD - 05/15/2023 3:15 PM CDT Gynecology Visit Subjective Chief Complaint: Follow-up (AUB and IUD check. Mirena inserted 04/14/2023) HPI: Lidya Bustillos is a 47 y.o. with PMH significant for UC, HLD, BMI 31. She returns for follow-up of IUD placement for management of AUB in the perimenopausal setting. Denies issues since placement. Is overall happy with this. Has been SA without issues. Histories Medical Past Medical History: Diagnosis Date Colitis followed by dr bray Pure hypercholesterolemia 02/21/2018 Routine general medical examination at a health care facility 03/13/2019 Seasonal allergies 02/12/2018 TMJ (dislocation of temporomandibular joint) Surgical Past Surgical History: Procedure Laterality Date ROTATOR CUFF REPAIR 2016 TARSAL TUNNEL RELEASE Ob History OB History Para Term AB Living 3 2 2 1 2 SAB IAB Ectopic Multiple Live Births 2 # Outcome Date GA Lbr Yusef/2nd Weight Sex Delivery Anes PTL Lv 3 Term Vag-Spont [place] 2 Term Vag-Spont [place] 1 AB Slip Cover Estimator History No LMP recorded (lmp unknown). (Menstrual status: IUD). Last Pap test: 04/21/2021 - NILM/HPV(-) Family Family History Problem Relation Age of Onset Cancer Maternal Grandmother Heart disease Maternal Grandfather No Known Problems Father Cancer Mother Lung cancer Mother Breast cancer Neg Hx Ovarian cancer Neg Hx Uterine cancer Neg Hx Social Social History Tobacco Use Smoking status: Never Smokeless tobacco: Never Substance and Sexual Activity Drug use: Never Sexual activity: Yes Partners: Male Alcohol Use: Not At Risk (05/03/2023) AUDIT-C Frequency of Alcohol Consumption: 2-4 times a month Average Number of Drinks: 1 or 2 Frequency of Binge Drinking: Never Meds Current Outpatient Medications: cetirizine 10 mg capsule, 10 mg daily, Disp: , Rfl: mesalamine (LIALDA) 1.2 gram EC tablet, daily, Disp: , Rfl: mometasone (NASONEX) 50 mcg/actuation nasal spray, USE 2 SPRAYS IN EACH NOSTRIL DAILY, Disp: 17 g, Rfl: 11 multivit with min-folic acid 200 mcg tablet,chewable, Rx: Multivitamin Adult - Tablet, Disp: , Rfl: PreviDent 5000 Booster Plus 1.1 % paste, USE AT BEDIME AND EXPECTORATE TOOTHPASTE AFTER USE BUT DO NOT RINSE AFTER USE, Disp: , Rfl: Allergies Patient has no known allergies. Objective BP 114/68 Ht 157.5 cm (5' 2.01 ) Wt 172 lb (78 kg) LMP (LMP Unknown) BMI 31.45 kg/m?? Physical Exam Vitals reviewed. Constitutional: Appearance: Normal appearance. HENT: Head: Normocephalic. Eyes: Extraocular Movements: Extraocular movements intact. Cardiovascular: Rate and Rhythm: Normal rate. Pulmonary: Effort: Pulmonary effort is normal. Genitourinary: Uterus normal. Right labia: normal. Left Labia: normal. Vaginal discharge (some mucus discharge present) present. Cervix: visible IUD strings. Cervix: Normal exam. Musculoskeletal: Cervical back: Normal range of motion. Skin: General: Skin is warm and dry. Neurological: Mental Status: She is alert and oriented to person, place, and time. Assessment/Plan #AUB w/ IUD in place - suspect that irregularity is due to perimenopause - normal Hgb and TSH, normal estrogen level 2018 - Pelvic US with one small fibroid, does not interfere with the lining of the uterus - Denies irregular bleeding - IUD strings appropriate, reviewed option to trim in the future, but currently no issues RTC in 1 year, call if concerns. Kavitha Shelley MD [facility] Obstetrics & Gynecology documented in this encounter Plan of Treatment Not on file documented as of this encounter Visit Diagnoses Diagnosis IUD (intrauterine device) in place- Primary Presence of intrauterine contraceptive device documented in this encounter Care Teams Mechanical Designer Relationship Specialty Start Date End Date Eun Rodriguez MD [address] [place] [address] PCP - General Family Medicine 02/08/19 Carmen Alanis MD [address] [place] [address] Consulting Physician Gastroenterology 04/28/22 documented as of this encounter
--- OUTSIDE RECORDS SUMMARY | 2024-09-02 20:19 | XMS_ITS | Encounter Summary ---
Author Organization [facility] Medical Group Address [address] [address] Care Team Providers Care Food Service Employee Name Role Phone Eun Rodriguez MD Primary Care Provi ashli Carmen Alanis MD Unavailable [phone] Reason for Visit * Reason Comments New Patient BC discussion * Consultation (Routine) - Closed Specialty Diagnoses / Procedures Referred By Michi marc Referred To Contact Obstetrics and Gynecology Diagnoses Counseling for control regarding intrauterine device (IUD) Eun Rodriguez MD [address] [place] [id number] Phone: tel: fax: [facility] Medical [facility] Obstetrical Gynecology [address] [place] [phone] Phone: tel: fax: Referral ID Status Reason Start Date Expiration Date V isits Requested Visits Authorized [id number] Closed Specialty Services Required 02/01/2023 03/02/2024 6 6 Encounter Details Date Type Department Care Team (Late Contact Info) Description 03/14/2023 1:00 PM CDT Office Visit [facility] Medical [facility] Obstetrical Gynecology [address] [address] Kavitha Shelley MD [facility] [address] [address] Abnormal uterine bleeding (Primary Dx); Counseling for control regarding intrauterine device (IUD); Perimenopause Social History Tobacco Use Types Packs/Day Years Used Date Smoking Tobacco: Never Smokeless Tobacco: Never Tobacco Cessation:Counseling Given: Not Answered Alcohol Use Standard Drinks/Week Comments Yes 0 (1 standard drink = 0.6 oz pur e alcohol) AUDIT-C Answer Date Recorded Q1: How often do you have a drink containing alc ohol? 2-4 times a month 04/28/2022 Q2: How many drinks containi ng alcohol do you have on a typical day when you are drinking? 1 or 2 04/28/2022 Q3: How often do you have si x or more drinks on one occasion? 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 Gender Identity Female 04/21/2021 2:30 PM CDT Sexual Orientation Straight 04/21/2021 2: 30 PM CDT documented as of this encounter Last Filed Vital Signs Vital Sign Reading Time Taken Comments Blood Pressure 120/80 03/14/2023 1:04 PM CDT Pulse - - Temperature - - Respiratory Rate - - Oxygen Saturation - - Inhaled Oxygen Concentration - - Weight 77.1 kg (170 lb) 03/14/2023 1:04 PM CDT Height 157.5 cm (5' 2.01 ) 03/14/2023 1:04 PM CD T Body Mass Index 31.09 03/14/2023 1:04 PM CDT documented in this encounter Progress Notes * Kavitha Shelley MD - 03/14/2023 1:00 PM CDT Gynecology Visit Subjective Chief Complaint: New Patient (BC discussion) HPI: Lidya Manzanaresnett is a 47 y.o. with PMH significant for UC, HLD, BMI 31. She presents for management of irregular bleeding, discussed possible levonorgestrel IUD for management. Last 18 months has had irregular periods - skipping sometimes, no period for a few months max, somemonths has two cycles, is never that heavy. Denies significant pain. Is very frustrated by the unpredictability of her cycles. No night sweats or hot flashes, no vaginal dryness. Partner vasectomy Her periods were normal before, once per month and predictable. 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 Last Pap test: 04/21/2021 - NILM/HPV(-) Family [...] Partners: Male Alcohol Use: Not At Risk (04/28/2022) AUDIT-C Frequency of Alcohol Consumption: 2-4 times [...] Patient has no known allergies. Objective BP 120/80 Ht 157.5 cm (5' 2.01 ) Wt 170 lb (77.1 kg) LMP 03/05/2023 BMI 31.09 kg/m?? Physical Exam Vitals reviewed. Constitutional: Appearance: Normal appearance. HENT: Head: Normocephalic. Eyes: Extraocular Movements: Extraocular movements intact. Cardiovascular: Rate and Rhythm: Normal rate. Pulmonary: Effort: Pulmonary effort is normal. Musculoskeletal: Cervical back: Normal range of motion. Skin: General: Skin is warm and dry. Neurological: Mental Status: She is alert and oriented to person, place, and time. Assessment/Plan #AUB - suspect that irregularity is due to perimenopause - normal Hgb and TSH, normal estrogen level 2018 - recommend pelvic US - reviewed options for management including POPs, DMPA, mirena IUD, endometrial ablation - She desires mirena IUD - low threshold for endometrial biopsy RTC for US and mirena IUD placement. Counseled on the procedure. Kavitha Shelley MD [facility]- Obstetrics & Gynecology documented in this encounter Plan of Treatment Not on file documented as of this encounter Visit Diagnoses Diagnosis Abnormal uterine bleeding- Primary Unspecified disorder of menstruation and other abnormal bleeding from female genital tract Counseling for control regarding intrauterine device (IUD) Perimenopause Symptomatic menopausal or female climacteric states documented in this encounter Orders Outpatient Referral Count Last Ordered Date Fir st Ordered Date AMB REFERRAL TO OB-Q[facility] CONSULTANT 1 03/14/2023 documented in this encounter Care Teams Food Service Employee Relationship Specialty Start Date End Date Eun Rodriguez MD [address] [place] [address] PCP - General Family Medicine 02/08/19 Carmen Alanis MD [address] [facility] [address] [place] [address] Consulting Physician Gastroenterology 04/28/22 documented as of this encounter
--- OUTSIDE RECORDS SUMMARY | 2024-09-02 20:19 | XMS_ITS | Encounter Summary ---
Author Organization [facility] Medical Group Address [address] [address] Care Team Providers Care Milk Sampler Name Role Phone Eun Rodriguez MD Primary Care Provi ashli Carmen Alanis MD Unavailable [phone] Reason for Visit * Reason Comments Annual Exam Encounter Details Date Type Department Care Team (Late st Contact Info) Description 05/03/2023 1:30 PM CDT Office Visit [facility] Family Medicine [address] [phone] Eun Rodriguez MD [address] [place] [address] Well adult exam (Primary Dx); Pure hypercholesterolemia ; Ulcerative colitis without complications, unspecified location (HCC); Class 1 obesity due to excess calories with serious comorbidity and body mass index (BMI) of 30.0 to 30.9 in adult; Encounter for screening mammogram for malignant neoplasm of breast; Screening for deficiency anemia; Screening for diabetes mellitus; Screening, lipid; Screening for thyroid disorder Social History Tobacco Use Types Packs/Day Years [...] on file 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 Gender Identity Female 04/21/2021 2:30 PM CDT Sexual Orientation Straight 04/21/2021 2: 30 PM CDT documented as of this encounter Last Filed Vital Signs Vital Sign Reading Time Taken Comments Blood Pressure 104/76 05/03/2023 1:34 PM CDT Pulse 77 05/03/2023 1:34 PM CDT Temperature 36.4 ??C (97.6 ??F) 05/03/2023 1:34 PM CD T Respiratory Rate 12 05/03/2023 1:34 PM CDT Oxygen Saturation 98% 05/03/2023 1:34 PM CDT Inhaled Oxygen Concentration - - Weight 76.7 kg (169 lb 3.2 oz) 05/03/2023 1:34 P M CDT Height 157.5 cm (5' 2.01 ) 05/03/2023 1:34 PM CD T Body Mass Index 30.94 05/03/2023 1:34 PM CDT documented in this encounter Patient Instructions * Patient Instructions* Eun Rodriguez MD - 05/03/2023 1:30 PM CDT - Shingles due at age 48. Health Maintenance Topic Date Due Influenza Vaccine (1) 05/05/2023 Breast Cancer Screening-Mammogram 06/04/2023 Depression Screening-PHQ 05/03/2024 Regular Well Visit/Exam 18-64 05/03/2024 Cervical Cancer Screening-Pap and HPV 04/21/2026 Colon Cancer Screening-Colonoscopy 04/22/2026 DTaP/Tdap/Td Vaccine (3 - Td or Tdap) 04/21/2031 Covid-19 Vaccine Completed Pneumococcal vaccine <65 Aged Out documented in this encounter Progress Notes * Eun Rodriguez MD - 05/03/2023 1:30 PM CDT Images from the original note were not included. Patient ID: Lidya Bustillos is a 47 y.o. female. Chief Complaint. Chief Complaint Patient presents with Annual Exam HPI. Patient is a 47 y.o. female Patient presents to our office today for her annual exam. She is getting along well and voices no major problems or concerns. She is taking her medications as prescribed and denies any problems with her medications. -patient is safe at home and socially Chronic conditions: -UC- she is following with Dr Alanis. She is due next year for her colonoscopy, and is scheduled. She is on lialda, no blood in her stool or GI issues. Review of Systems: Review of Systems Constitutional: Negative for chills and fever. Respiratory: Negative for shortness of breath. Cardiovascular: Negative for chest pain. Gastrointestinal: Negative for abdominal pain, constipation, diarrhea, nausea and vomiting. BP 104/76 (BP Location: Left arm, Patient Position: Sitting) Pulse 77 Temp 36.4 ??C (97.6 ??F) (Temporal) Resp 12 Ht 157.5 cm (5' 2.01 ) Wt 76.7 kg (169 lb 3.2 oz) LMP 03/23/2023 SpO2 98% BMI 30.94 kg/m?? Physical Exam: Physical Exam Vitals and nursing note reviewed. [...] respiratory distress. Breath sounds: Normal breath sounds. No wheezing or rales. Abdominal: General: Bowel sounds are normal. There is no distension. Palpations: Abdomen is soft. There is no mass. Tenderness: There is no abdominal tenderness. There is no guarding. Musculoskeletal: Cervical back: Neck supple. Skin: General: Skin is warm and dry. Neurological: Mental Status: She is alert and oriented to person, place, and time. Motor: No abnormal muscle tone. Psychiatric: Mood and Affect: Mood normal. Behavior: Behavior normal. Thought Content: Thought content normal. Assessment/Plan Diagnoses and all orders for this [...] Flu: yearly Last COVID: up to date Pure hypercholesterolemia Assessment & Plan: Chronic, stable Continue healthy changes Labs ordered Ulcerative colitis without complications, unspecified location (HCC) Assessment & Plan: Chronic, stable Continue to see Dr Alanis Continue her current regimen Call for questions or concerns Class 1 obesity due to excess calories with serious comorbidity and body mass index (BMI) of 30.0 to 30.9 in adult Assessment & Plan: BMI Follow-up includes: nutrition counseling. Encounter for screening mammogram for malignant neoplasm of breast - Screening Mammogram Bilateral W [place]; Future Screening for deficiency anemia - CBC with auto differential; Future Screening for diabetes mellitus - Comprehensive metabolic panel; Future Screening, lipid - Lipid panel; Future Screening for thyroid disorder - TSH reflex to free T4; Future Patient/parent was counseled on medication risk, side effects, and possible complications. Patient/parent was counseled on how to properly take the medication and to call with any adverse reactions. Patient/parent was advised that if anything changes or worsens, to contact the office. Patient/parent stated understanding. Eun Rodriguez MD documented in this encounter Miscellaneous Notes * Assessment & Plan Note - Eun Rodriguez MD - 05/03/2023 2:00 PM CDTAssociated Problem(s): Class 1 obesity due to excess calories with serious comorbidity and body mass index (BMI) of 30.0 to 30.9 in adult BMI Follow-up includes: nutrition counseling. * Assessment & Plan Note - Eun Rodriguez MD - 05/03/2023 2:00 PM CDTAssociated Problem(s): Ulcerative colitis (HCC) Chronic, stable Continue to see Dr Alanis Continue her current regimen Call for questions or concerns * Assessment & Plan Note - Eun Rodriguez MD - 05/03/2023 1:59 PM CDTAssociated Problem(s): Pure hypercholesterolemia Chronic, stable Continue healthy changes Labs ordered * Assessment & Plan Note - Eun Rodriguez MD - 05/03/2023 1:58 PM CDTAssociated Problem(s): Well adult exam Work [...] Associated Diagnosis Comments THYROID FUNCTION CASCADE Routine 05/27/2023 8:35 AM CDT Screening for thyroid disorder CBC WITH AUTO DIFFERENTIAL Routine 05/27/2023 8:35 AM CDT Screening for deficiency anemia LIPID PANEL Routine 05/27/2023 8:35 AM CDT Screening, lipid COMPREHENSIVE METABOLIC PANEL Routine 05/27/2023 8:35 AM CDT Screening for diabetes mellitus documented in this encounter Results * TSH reflex to free T4 (05/27/2023 8:35 AM CDT) TSH 1.490 0.450 - 4.500 uIU/mL [facility] - 01 Comment: No apparent thyroid disorder. Additional testing not indicated. In rare instances, Secondary Hypothyroidism as well as Subclinical Hypothyroidism have been reported in some patients with normal TSH values. Blood 05/27/2023 8:35 AM CDT 05/27/2023 Narrative [facility] - 05/28/2023 8:08 AM CDT Performed at: ??01 - [facility] [address] ??[id number] Bodily Injury Adjuster: Vasiliy Leach PhD, Phone: ??[phone] us Eun Rodriguez MD LAB BLOOD ORDERABLE S Final Result [facility] - 01 * (ABNORMAL) Lipid panel (05/27/2023 8:35 AM CDT) Cholesterol 180 100 - 199 mg/dL [facility] - 01 Triglycerides 48 0 - 149 mg/dL [facility] - 01 HDL Cholesterol 51 >39 mg/dL [facility] - 01 VLDL 9 5 - 40 mg/dL [facility] - 01 LDL, calculated 120(H) 0 - 99 mg/dL [facility] - 01 Blood 05/27/2023 8:35 AM CDT 05/27/2023 Narrative [facility] - 05/28/2023 8:08 AM CDT Performed at: ??01 - [facility] [address] ??[id number] Bodily Injury Adjuster: Vasiliy Leach PhD, Phone: ??[phone] us Eun Rodriguez MD LAB BLOOD ORDERABLE S Final Result [facility] - 01 * Comprehensive metabolic panel (05/27/2023 8:35 AM CDT) Glucose 91 70 - 99 mg/dL [facility] - 01 BUN 14 6 - 24 mg/dL [facility] - 01 Creatinine, Serum 0.76 0.57 - 1.00 mg/dL [facility] - 01 eGFR 96 >59 mL/min/1.73 [facility] - 01 BUN/creat ratio 18 9 - 23 [facility] - 01 Sodium 140 134 - 144 mmol/L [facility] - 01 Potassium, sr 4.3 3.5 - 5.2 mmol/L [facility] - 01 Chloride 104 96 - 106 mmol/L [facility] - 01 CO2 21 20 - 29 mmol/L [facility] - 01 Calcium 9.5 8.7 - 10.2 mg/dL [facility] - 01 Protein, sr 6.6 6.0 - 8.5 g/dL [facility] - 01 Albumin 4.4 3.9 - 4.9 g/dL [facility] - 01 Globulin, Total 2.2 1.5 - 4.5 g/dL [facility] - 01 A/G Ratio 2.0 1.2 - 2.2 [facility] - 01 Bilirubin, Total 0.7 0.0 - 1.2 mg/dL [facility] - 01 Alk phos 79 44 - 121 IU/L [facility] - 01 AST 15 0 - 40 IU/L [facility] - 01 ALT 14 0 - 32 IU/L [facility] - 01 Blood 05/27/2023 8:35 AM CDT 05/27/2023 Narrative [facility] - 05/28/2023 8:08 AM CDT Performed at: ??01 - [facility] [address], [place], [place] ??[id number] Bodily Injury Adjuster: Vasiliy Leach PhD, Phone: ??[phone] us Eun Rodriguez MD LAB BLOOD ORDERABLE S Final Result [facility] - 01 * CBC with auto differential (05/27/2023 8:35 AM CDT) WBC 7.6 3.4 - 10.8 x10E3/uL [facility] - 01 RBC 4.35 3.77 - 5.28 x10E6/uL [facility] - 01 Hgb 13.2 11.1 - 15.9 g/dL [facility] - 01 Hct 39.3 34.0 - 46.6 % [facility] - 01 MCV 90 79 - 97 fL [facility] - 01 MCH 30.3 26.6 - 33.0 pg [facility] - 01 MCHC 33.6 31.5 - 35.7 g/dL [facility] - 01 Rdw 12.0 11.7 - 15.4 % [facility] - 01 Platelets 337 150 - 450 x10E3/uL [facility] - 01 Neutrophils pct 51 Not Estab. % [facility] - 01 Lymphs pct 37 Not Estab. % [facility] - 01 Monocytes pct 9 Not Estab. % [facility] - 01 Eosinophils pct 2 Not Estab. % [facility] - 01 Basophil pct 1 Not Estab. % [facility] - 01 Neutrophil abs 3.9 1.4 - 7.0 x10E3/uL [facility] - 01 Lymphs (Absolute) 2.8 0.7 - 3.1 x10E3/uL [facility] - 01 Monocyte abs 0.7 0.1 - 0.9 x10E3/uL [facility] - 01 Eosinophils, abs 0.2 0.0 - 0.4 x10E3/uL [facility] - 01 Basophils, abs 0.0 0.0 - 0.2 x10E3/uL [facility] - 01 Immature Granulocytes 0 Not Estab. % [facility] - 01 Immature Grans (Abs) 0.0 0.0 - 0.1 x10E3/uL [facility] - 01 Blood 05/27/2023 8:35 AM CDT 05/27/2023 Narrative [facility] - 05/28/2023 8:08 AM CDT Performed at: ??01 - [facility] [address], [place], [place] ??[id number] Bodily Injury Adjuster: Vasiliy Leach PhD, Phone: ??[phone] us Eun Rodriguez MD LAB BLOOD ORDERABLE S Final Result [facility] - 01 documented in this encounter Visit Diagnoses Diagnosis Well adult exam- Primary Routine general medical examination at a health care facility Pure hypercholesterolemia Ulcerative colitis without complications, unspecified location (HCC) Class 1 obesity due to excess calories with serious comorbidity and body mass index (BMI) of 30.0 to 30.9 in adult Encounter for screening mammogram for malignant neoplasm of breast Screening for deficiency anemia Screening for other and unspecified deficiency anemia Screening for diabetes mellitus Screening, lipid Screening for thyroid disorder documented in this encounter Care Teams Milk Sampler Relationship Specialty Start Date End Date Eun Rodriguez MD [address] [place] [address] PCP - General Family Medicine 02/08/19 Carmen Alanis MD [address] [address] Consulting Physician Gastroenterology 04/28/22 documented as of this encounter
--- OUTSIDE RECORDS SUMMARY | 2024-09-02 20:19 | XMS_ITS | Encounter Summary ---
Author Organization [facility] Medical Group Address [address] [address] Care Team Providers Care Pack Press Operator Name Role Phone Eun Rodriguez MD Primary Care Provi ashli Encounter Details Date Type Department Care Team (Late st Contact Info) Description 04/27/[address] 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 You can repeat this in 3-5 years. If you have any questions, please let me know. Thank you! documented in this encounter Plan of Treatment Not on file documented as of this encounter Visit Diagnoses Not on filedocumented in this encounter Care Teams Pack Press Operator Relationship Specialty Start Date End Date Eun Rodriguez MD [address] [place] [address] PCP - General Family Medicine 02/08/19 documented as of this encounter
--- OUTSIDE RECORDS SUMMARY | 2024-09-02 20:19 | XMS_ITS | Encounter Summary ---
Author Organization [facility] Address [address] [address] Care Team Providers Care Fulfillment Coordinator Name Role Phone Eun Rodriguez MD Primary Care Provi ashli Carmen Alanis MD Unavailable [phone] Reason for Visit * Reason Comments Annual Exam Patient arrives for annual exam. Colon 2016 normal, Mammo scheduled needs order, Encounter Details Date Type Department Care Team (Late st Contact Info) Description 04/28/2022 3:00 PM CDT Office Visit [facility] Family Medicine [address] [address] Eun Rodriguez MD [address] [place] [address] Well adult exam (Primary Dx); Ulcerative colitis without complications, unspecified location (HCC); Overweight (BMI 25.0-29.9); Pure hypercholesterolemia ; Seasonal allergies; Encounter for screening mammogram for malignant neoplasm of breast Social History Tobacco Use Types Packs/Day Years [...] on file 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 Gender Identity Female 04/21/2021 2:30 PM CDT Sexual Orientation Straight 04/21/2021 2: 30 PM CDT documented as of this encounter Last Filed Vital Signs Vital Sign Reading Time Taken Comments Blood Pressure 110/64 04/28/2022 3:10 PM CDT Pulse 67 04/28/2022 3:10 PM CDT Temperature 36.1 ??C (97 ??F) 04/28/2022 3:10 PM CDT Respiratory Rate 16 04/28/2022 3:10 PM CDT Oxygen Saturation 98% 04/28/2022 3:10 PM CDT Inhaled Oxygen Concentration - - Weight 72.2 kg (159 lb 3.2 oz) 04/28/2022 3:10 P M CDT Height 157.5 cm (5' 2 ) 04/28/2022 3:10 PM CDT Body Mass Index 29.12 04/28/2022 3:10 PM CDT documented in this encounter Progress Notes * Eun Rodriguez MD - 04/28/2022 3:00 PM CDT Images from the original note were not included. Patient ID: Lidya Bustillos is a 46 y.o. female. Chief Complaint. Chief Complaint Patient presents with ??? Annual Exam Patient arrives for annual exam. Colon 2016 normal, Mammo scheduled needs order, HPI. Patient is a 46 y.o. female The patient is presenting to the office for annual wellness visit/preventive exam Chronic conditions reviewed: -UC- currently stable. She follows with Dr Alanis, and is doing well. -allergies- stable on her current regimen -HLP- stable Most Recent labs available reviewed Maintenance and Preventive testing reviewed Physical activity and diet reviewed Current Weight compared to last visit's weight reviewed. Patient Care Team: Eun Rodriguez MD as PCP - General (Family Medicine) Current Medications: Outpatient Encounter Medications as of 04/28/2022 Medication Sig Dispense Refill ??? cetirizine 10 mg capsule 10 mg daily ??? mesalamine (LIALDA) 1.2 gram EC tablet daily ??? mometasone (NASONEX) 50 mcg/actuation nasal spray USE 2 SPRAYS IN EACH NOSTRIL DAILY 17 g 5 ??? multivit with min-folic acid 200 mcg tablet,chewable Rx: Multivitamin Adult - Tablet ??? PreviDent 5000 Booster Plus 1.1 % paste USE AT BEDIME AND EXPECTORATE TOOTHPASTE AFTER USE BUT DO NOT RINSE AFTER USE No facility-administered encounter medications on file as of 04/28/2022. Review of Systems: Review of Systems Constitutional: Negative for chills and fever. Eyes: Negative for visual disturbance. Respiratory: Negative for shortness of breath. Cardiovascular: Negative for chest pain. Gastrointestinal: Negative for abdominal pain, blood in stool, constipation, diarrhea and vomiting. Psychiatric/Behavioral: Negative for dysphoric mood. The patient is not nervous/anxious. BP 110/64 (BP Location: Left arm, Patient Position: Sitting) Pulse 67 Temp 36.1 ??C (97 ??F) (Temporal) Resp 16 Ht 157.5 cm (5' 2 ) Wt 72.2 kg (159 lb 3.2 oz) LMP 04/07/2022 SpO2 98% BMI 29.12 kg/m?? Physical Exam: Physical Exam Vitals and nursing note reviewed. Constitutional: General: She is not in acute distress. Appearance: Normal appearance. She is well-developed. She is not ill-appearing or toxic-appearing. HENT: Head: Normocephalic and atraumatic. Right Ear: Tympanic membrane, ear canal and external ear normal. Left Ear: Tympanic membrane, ear canal and external ear normal. Nose: Nose normal. Mouth/Throat: Mouth: Mucous membranes are moist. Pharynx: Oropharynx is clear. Eyes: Extraocular Movements: Extraocular movements intact. Conjunctiva/sclera: Conjunctivae normal. Pupils: Pupils are equal, [...] tenderness. There is no guarding or rebound. Musculoskeletal: Cervical back: Neck supple. Lymphadenopathy: Cervical: No cervical adenopathy. Skin: General: Skin is warm and [...] yearly Last COVID: up to date Ulcerative colitis without complications, unspecified location (HCC) Assessment & Plan: Chronic, stable Continue lialda Continue to follow with GI Overweight (BMI 25.0-29.9) Assessment & Plan: BMI Follow-up includes: nutrition counseling. Pure hypercholesterolemia Assessment & Plan: CVD score 29.1% Continue healthy changes Seasonal allergies Assessment & Plan: Chronic, [facility] Encounter for screening mammogram for malignant neoplasm of breast - Screening Mammogram Bilateral W Rolando; Future Patient/parent was counseled on medication risk, [...] Plan Note - Eun Rodriguez MD - 04/28/2022 3:24 PM CDTAssociated Problem(s): Ulcerative colitis (HCC) Chronic, stable Continue lialda Continue to follow with GI * Assessment & Plan Note - Eun Rodriguez MD - 04/28/2022 3:24 PM CDTAssociated Problem(s): Seasonal allergies Chronic, stable Continue zyrtec * Assessment & Plan Note - Eun Rodriguez MD - 04/28/2022 3:23 PM CDTAssociated Problem(s): Pure hypercholesterolemia CVD score 29.1% Continue healthy changes * Assessment & Plan Note - Eun Rodriguez MD - 04/28/2022 3:23 PM CDTAssociated Problem(s): Class 1 obesity due to excess calories with serious comorbidity and body mass index (BMI) of 30.0 to 30.9 in adult BMI Follow-up includes: nutrition counseling. * Assessment & Plan Note - Eun Rodriguez MD - 04/28/2022 3:22 PM CDTAssociated Problem(s): Well adult exam Work [...] medical examination at a health care facility Ulcerative colitis without complications, unspecified location (HCC) Overweight (BMI 25.0-29.9) Overweight Pure hypercholesterolemia Seasonal allergies Allergic rhinitis, cause unspecified Encounter for screening mammogram for malignant neoplasm of breast documented in this encounter Care Teams Fulfillment Coordinator Relationship Specialty Start Date End Date Eun Rodriguez MD [facility] [address] [place] [address] PCP - General Family Medicine 02/08/19 Carmen Alanis MD [address] [facility] [address] [place] [address] Consulting Physician Gastroenterology 04/28/22 documented as of this encounter
--- OUTSIDE RECORDS SUMMARY | 2024-09-02 20:19 | XMS_ITS | Encounter Summary ---
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 Gender Identity Female 04/21/2021 2:30 PM CDT Sexual Orientation Straight 04/21/2021 2: 30 PM CDT documented as of this encounter Miscellaneous Notes * Telephone Encounter - Lacey Christian MA - 04/22/2021 9:25 AM CDT Update hM documented in this encounter Plan of Treatment Not on file documented as of this encounter Procedures Procedure Name Priority Date/Time Associated Diagnosis Comments COLONOSCOPY Routine 04/22/2021 9:26 AM CDT documented in this encounter Visit Diagnoses Not on filedocumented in this encounter Orders Imaging Orders Without Results Count Last Order ed Date First Ordered Date COLONOSCOPY 1 04/22/2021 documented in this encounter Care Teams Ruby On Rails Software Developer Relationship Specialty Start Date End Date Eun Rodriguez MD [facility] [address] [place] [address] PCP - General Family Medicine 02/08/19 documented as of this encounter
--- OUTSIDE RECORDS SUMMARY | 2024-09-02 20:19 | XMS_ITS | Encounter Summary ---
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 Message sent to patient * Telephone Encounter - Caitlyn Jean LPN - 04/29/2021 11:32 AM CDT [facility] was not able to run the Trichomonas vaginalis. Patient saw her results via my chart. * Telephone Encounter - Eun Rodriguez MD - 04/28/2021 10:52 AM CDT Have her come in and we can do another one- would [facility] let us re-submit it without another charge? * Telephone Encounter - Caitlyn Jean LPN - 04/28/2021 10:32 AM CDT What do you mean by resubmit? * Telephone Encounter - Caitlyn Jean LPN - 04/28/2021 10:32 AM CDT ----- Message from Eun Rodriguez MD sent at 04/27/2021 11:33 AM CDT ----- [facility] was unable to run the lab- are we able to resubmit? documented in this encounter Plan of Treatment Not on file documented as of this encounter Visit Diagnoses Not on filedocumented in this encounter Care Teams Engineer Geophysical Laboratory Relationship Specialty Start Date End Date Eun Rodriguez MD [address] [place] [address] PCP - General Family Medicine 02/08/19 documented as of this encounter
--- OUTSIDE RECORDS SUMMARY | 2024-09-02 20:19 | XMS_ITS | Encounter Summary ---
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 Gender Identity Female 04/21/2021 2:30 PM CDT Sexual Orientation Straight 04/21/2021 2: 30 PM CDT documented as of this encounter Miscellaneous Notes * Telephone Encounter - Renetta Fuentes LPN - 06/23/2022 10:41 AM CDT Letter printed to mail to the pt informing her of normal results * Telephone Encounter - Eun Rodriguez MD - 06/23/2022 10:13 AM CDT Pt did not see my chart * Telephone Encounter - Eun Rodriguez MD - 06/23/2022 10:13 AM CDT ----- Message from Lidya Bustillos sent at 06/23/2022 9:34 AM CDT ----- Regarding: Unread Message Notification Contact: Good morning, Your mammogram is normal. You can repeat this in 1 year. If you have any questions, please let me know. Dr. Wilson documented in this encounter Plan of Treatment Not on file documented as of this encounter Visit Diagnoses Not on filedocumented in this encounter Care Teams Mail Examiner Relationship Specialty Start Date End Date Eun Rodriguez MD [address] [place] [address] PCP - General Family Medicine 02/08/19 Carmen Alanis MD [address] [place] [address] Consulting Physician Gastroenterology 04/28/22 documented as of this encounter
--- OUTSIDE RECORDS SUMMARY | 2024-09-02 20:19 | XMS_ITS | Encounter Summary ---
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 Gender Identity Female 04/21/2021 2:30 PM CDT Sexual Orientation Straight 04/21/2021 2: 30 PM CDT documented as of this encounter Plan of Treatment Not on file documented as of this encounter Procedures Procedure Name Priority Date/Time Associated Diagnosis Comments SCAN - RADIOLOGY/IMAGING 04/08/2019 documented in this encounter Results * SCAN - RADIOLOGY/IMAGING (04/08/2019) Anatomical Region Laterality Modality Other us Eun Rodriguez MD Fin al Result documented in this encounter Visit Diagnoses Not on filedocumented in this encounter Care Teams Serology Teacher Relationship Specialty Start Date End Date Eun Rodriguez MD [address] [place], [place] [id number] PCP - General Family Medicine 02/08/19 documented as of this encounter
--- OUTSIDE RECORDS SUMMARY | 2024-09-02 20:19 | XMS_ITS | Encounter Summary ---
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 8 hour fast prior, thank you! * Telephone Encounter - Georgette Worley - 03/24/2022 9:29 AM CDT Pt has an annual wellness scheduled for . Please advise if there are any labs that you would like for the patient to have drawn. She would like to use [facility] in [place]. [facility] documented in this encounter Plan of Treatment Not on file documented as of this encounter Procedures Procedure Name Priority Date/Time Associated Diagnosis Comments THYROID FUNCTION CASCADE Routine 04/12/2022 7:12 AM CDT Screening for thyroid disorder CBC WITH AUTO DIFFERENTIAL Routine 04/12/2022 7:12 AM CDT Screening, anemia, deficiency, iron LIPID PANEL Routine 04/12/2022 7:12 AM CDT Screening, lipid COMPREHENSIVE METABOLIC PANEL Routine 04/12/2022 7:12 AM CDT Screening for diabetes mellitus documented in this encounter Results * TSH reflex to free T4 (04/12/2022 7:12 AM CDT) Pathologist [facility] TSH 2.650 0.450 - 4.500 uIU/mL [facility] - 01 Comment: No apparent thyroid disorder. Additional testing not indicated. In rare instances, Secondary Hypothyroidism as well as Subclinical Hypothyroidism have been reported in some patients with normal TSH values. Blood specimen (specimen) 04/12/2022 7:12 AM CDT 04/12/2022 Narrative [facility] - 04/13/2022 8:14 AM CDT Performed at: ??01 - [facility] ??[id number] Payroll Services Analyst: Vasiliy Leach PhD, Phone: ??[phone] Eun Rodriguez MD LAB BLOOD ORDERABLE S Final Result Performing Organization Address [facility] Co de Phone Number [facility] - * (ABNORMAL) Lipid panel (04/12/2022 7:12 AM CDT) [facility] Cholesterol 184 100 - 199 mg/dL [facility] - 01 Triglycerides 68 0 - 149 mg/dL [facility] - 01 HDL Cholesterol 58 >39 mg/dL [facility] - 01 VLDL 13 5 - 40 mg/dL [facility] - 01 LDL, calculated 113(H) 0 - 99 mg/dL [facility] - 01 Blood specimen (specimen) 04/12/2022 7:12 AM CDT 04/12/2022 Narrative [facility] - 04/13/2022 8:14 AM CDT Performed at: ??01 - [facility] ??[id number] Payroll Services Analyst: Vasiliy Leach PhD, Phone: ??[phone] Eun Rodriguez MD LAB BLOOD ORDERABLE S Final Result Performing Organization Address [facility] Co de Phone Number [facility] - * CBC with auto differential (04/12/2022 7:12 AM CDT) [facility] WBC 6.2 3.4 - 10.8 x10E3/uL [facility] - 01 RBC 4.51 3.77 - 5.28 x10E6/uL [facility] - 01 Hgb 13.3 11.1 - 15.9 g/dL [facility] - 01 Hct 39.8 34.0 - 46.6 % [facility] - 01 MCV 88 79 - 97 fL [facility] - 01 MCH 29.5 26.6 - 33.0 pg [facility] - 01 MCHC 33.4 31.5 - 35.7 g/dL [facility] - 01 Rdw 12.4 11.7 - 15.4 % [facility] - 01 Platelets 342 150 - 450 x10E3/uL [facility] - 01 Neutrophils pct 50 Not Estab. % [facility] - 01 Lymphs pct 37 Not Estab. % [facility] - 01 Monocytes pct 8 Not Estab. % [facility] - 01 Eosinophils pct 4 Not Estab. % [facility] - 01 Basophil pct 1 Not Estab. % [facility] - 01 Neutrophil abs 3.1 1.4 - 7.0 x10E3/uL [facility] - 01 Lymphs (Absolute) 2.3 0.7 - 3.1 x10E3/uL [facility] - 01 Monocyte abs 0.5 0.1 - 0.9 x10E3/uL [facility] - 01 Eosinophils, abs 0.3 0.0 - 0.4 x10E3/uL [facility] - 01 Basophils, abs 0.0 0.0 - 0.2 x10E3/uL [facility] - 01 Immature Granulocytes 0 Not Estab. % [facility] - 01 Immature Grans (Abs) 0.0 0.0 - 0.1 x10E3/uL [facility] - 01 Blood specimen (specimen) 04/12/2022 7:12 AM CDT 04/12/2022 Narrative [facility] - 04/13/2022 8:14 AM CDT Performed at: ??01 - [facility] [address] ??[id number] Payroll Services Analyst: Vasiliy Leach PhD, Phone: ??[phone] us Eun Rodriguez MD LAB BLOOD ORDERABLE S Final Result [facility] - * (ABNORMAL) Comprehensive metabolic panel (04/12/2022 7:12 AM CDT) Glucose 94 65 - 99 mg/dL [facility] - 01 BUN 20 6 - 24 mg/dL [facility] - 01 Creatinine, Serum 0.74 0.57 - 1.00 mg/dL [facility] - 01 eGFR 100 >59 mL/min/1.73 [facility] - 01 BUN/creat ratio 27(H) 9 - 23 [facility] - 01 Sodium 142 134 - 144 mmol/L [facility] - 01 Potassium, sr 4.3 3.5 - 5.2 mmol/L [facility] - 01 Chloride 106 96 - 106 mmol/L [facility] - 01 CO2 25 20 - 29 mmol/L [facility] - 01 Calcium 9.8 8.7 - 10.2 mg/dL [facility] - 01 Protein, sr 6.6 6.0 - 8.5 g/dL [facility] - 01 Albumin 4.5 3.8 - 4.8 g/dL [facility] - 01 Globulin, Total 2.1 1.5 - 4.5 g/dL [facility] - 01 A/G Ratio 2.1 1.2 - 2.2 [facility] - 01 Bilirubin, Total 0.2 0.0 - 1.2 mg/dL [facility] - 01 Alk phos 86 44 - 121 IU/L [facility] - 01 AST 13 0 - 40 IU/L [facility] - 01 ALT 16 0 - 32 IU/L [facility] - 01 Blood specimen (specimen) 04/12/2022 7:12 AM CDT 04/12/2022 Narrative [facility] - 04/13/2022 8:14 AM CDT Performed at: ??01 - [facility] [address] ??[id number] Payroll Services Analyst: Vasiliy Leach PhD, Phone: ??[phone] us Eun Rodriguez MD LAB BLOOD ORDERABLE S Final Result [facility] - documented in this encounter Visit Diagnoses Diagnosis Screening, lipid- Primary Screening, anemia, deficiency, iron Screening for iron deficiency anemia Screening for diabetes mellitus Screening for thyroid disorder documented in this encounter Care Teams Special Distribution Clerk Relationship Specialty Start Date End Date Eun Rodriguez MD [address] [place] [address] PCP - General Family Medicine 02/08/19 documented as of this encounter
--- OUTSIDE RECORDS SUMMARY | 2024-09-02 20:19 | XMS_ITS | Encounter Summary ---
Author Organization [facility] Address [address] [address] Care Team Providers Care Gas And Oil Checker Name Role Phone Eun Rodriguez MD Primary Care Provi ashli Carmen Alanis MD Unavailable [phone] Reason for Referral * Diagnostic Imaging (Routine) - Closed Specialty Diagnoses / Procedures Referred By Michi marc Referred To Contact Diagnoses Abnormal uterine bleeding (AUB) Procedures US Transvaginal Kavitha Shelley MD [address] [place] [address] Phone: tel: fax: [facility] Referral ID Status Reason Start Date Expiration Date Visits Re quested Visits Authorized [id number] Closed 04/14/2023 05/13/2024 1 1 Reason for Visit * Reason Comments 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 Encounter Details Date Type Department Care Team (Latest Contact Info) Description 04/14/2023 9:00 AM CDT Clinical Support [facility] Obstetrical Gynecology [address] [place] [phone] Abnormal uterine bleeding (AUB) (Primary Dx) Social History Tobacco Use Types [...] on file 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 Gender Identity Female 04/21/2021 2:30 PM CDT Sexual Orientation Straight 04/21/2021 2: 30 PM CDT documented as of this encounter Plan of Treatment Not on file documented as of this encounter Procedures Procedure Name Priority Date/Time Associated Diagnosis Comments US TRANSVAGINAL Schedule Routine, Read Routine (OP Routine) 04/14/2023 9:40 AM CDT Abnormal uterine bleeding (AUB) documented in this encounter Results * US Transvaginal (04/14/2023 9:40 AM CDT) Anatomical Region Laterality Modality Pelvis N/A Ultrasound Narrative 04/14/2023 10:39 AM CDT Last Menstrual Period: 03/23/2023 Indication: AUB History of Pelvic Surgery: no Uterus size in cm: 7.67 x 4.35 x 4.26 Endometrium: 7.83 mm Fibroids in cm: 1.80 x 1.56 x 1.68 Right Ovary size in cm: Not Seen Left Ovary size in cm: Not Seen Heel Former impression: Endo = 7.83 mm. Hypoechoic area noted anterior UT. Unable to image both ovaries TV or TA due to bowel. Physician Interpretation Normal size uterus in anteverted position. ??Endometrium is homogeneous and measures 7.8 mm. ??1 fibroid with an anterior uterus measuring 1.8 cm, ?? does not appear to interfere with the endometrial lining. ??Ovaries not visualized on today's exam due to active bowel. ?? No seen adnexal masses. No free fluid. Kavitha Shelley MD us Kavitha Shelley MD IMG US PROCEDURES Edited Res ult - Final documented in this encounter Visit Diagnoses Diagnosis Abnormal uterine bleeding (AUB)- Primary documented in this encounter Care Teams Gas And Oil Checker Relationship Specialty Start Date End Date Eun Rodriguez MD [address] [place] [address] PCP - General Family Medicine 02/08/19 Carmen Alanis MD [address] [facility] [address] [place] [address] Consulting Physician Gastroenterology 04/28/22 documented as of this encounter
--- OUTSIDE RECORDS SUMMARY | 2024-09-02 20:19 | XMS_ITS | Encounter Summary ---
Author Organization [facility] Healthcare Address [address] [place] [address] Care Team Providers Care Mid Level Project Manager Name Role Phone Eun Rodriguez MD Primary Care Provi ashli Carmen Alanis MD Unavailable [phone] Reason for Visit * Reason Onset Date Comments Test Results 08/01/2023 Encounter Details Date Type Department Care Team (Late st Contact Info) Description 08/01/2023 Telephone [facility] Family Medicine [address] [phone] Eun Rodriguez MD [address] [place] [address] Test Results Social History Tobacco Use Types Packs/Day Years [...] on file 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 ON DELIVERY CLERK * Telephone Encounter - Camille Lyons MA - 08/01/2023 2:26 PM CST I hope this message finds you doing well! Your mammogram is normal. You can repeat this in 1 year. If you develop any changes in your breast though, please call the office. If you have any questions,please reach out to me. Sincerely, Eun Rodriguez MD ON DELIVERY CLERK * Telephone Encounter - Camille Lyons MA - 08/01/2023 2:26 PM CST ----- Message from Eun Rodriguez MD sent at 07/30/2023 9:25 AM CASH ON DELIVERY CLERK ----- Please call the patient. I received notification that the patient did not review their Resident Gifts message. If we could please relay this message, I would be appreciative. ON DELIVERY CLERK documented in this encounter Plan of Treatment Not on file documented as of this encounter Visit Diagnoses Not on filedocumented in this encounter Care Teams Mid Level Project Manager Relationship Specialty Start Date End Date Eun Rodriguez MD [address] [place] [address] PCP - General Family Medicine 02/08/19 Carmen Alanis MD [address] [place] [address] Consulting Physician Gastroenterology 04/28/22 documented as of this encounter
--- OUTSIDE RECORDS SUMMARY | 2024-09-02 20:19 | XMS_ITS | Encounter Summary ---
Author Organization [facility] Healthcare Address [address] [place] [address] Care Team Providers Care Hospital Receptionist Name Role Phone Eun Rodriguez MD Primary Care Provi ashli Carmen Alanis MD Unavailable [phone] Reason for Visit * Reason Comments Immunizations First shingrix vacci ne Encounter Details Date Type Department Care Team (Latest Contact Info) Description 11/30/2023 10:45 AM CDT Clinical Support [facility] Family Medicine [address] [phone] Need for vaccination (Primary Dx) Social History Tobacco Use Types [...] on file 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 Gender Identity Female 04/21/2021 2:30 PM CDT Sexual Orientation Straight 04/21/2021 2: 30 PM CDT documented as of this encounter Progress Notes * Maura Greco MA - 11/30/2023 10:45 AM CDT Pt came in for her first shingrix vaccine, pt tolerated it well, pt was instructed to come back in 2-6 month for her second shingrix vaccine documented in this encounter Plan of Treatment Not on file documented as of this encounter Visit Diagnoses Diagnosis Need for vaccination- Primary Need for prophylactic vaccination and inoculation against unspecified single disease documented in this encounter Orders Immunization/Injection Count Last Ordered Date First Ordered Date ZOSTER (SHINGLES) HZV IM 1 11/30/2023 documented in this encounter Care Teams Hospital Receptionist Relationship Specialty Start Date End Date Eun Rodriguez MD [address] [place] [address] PCP - General Family Medicine 02/08/19 Carmen Alanis MD [address] [place] [address] Consulting Physician Gastroenterology 04/28/22 documented as of this encounter
--- OUTSIDE RECORDS SUMMARY | 2024-09-02 20:19 | XMS_ITS | Encounter Summary ---
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 Pharmacy notified documented in this encounter Plan of Treatment Not on file documented as of this encounter Visit Diagnoses Not on filedocumented in this encounter Care Teams Party Bus Driver Relationship Specialty Start Date End Date Eun Rodriguez MD [facility] [address] [place] [address] PCP - General Family Medicine 02/08/19 Carmen Alanis MD [address] [place] [address] Consulting Physician Gastroenterology 04/28/22 documented as of this encounter
--- OUTSIDE RECORDS SUMMARY | 2024-09-02 20:19 | XMS_ITS | Encounter Summary ---
Author Organization [facility] Address [address] [address] Care Team Providers Care Gin Feeder Name Role Phone Eun Rodriguez MD Primary Care Provi ashli Carmen Alanis MD Unavailable [phone] Reason for Referral * Consultation (Routine) - Closed Specialty Diagnoses / Procedures Referred By Michi marc Referred To Contact Obstetrics and Gynecology Diagnoses Counseling for control regarding intrauterine device (IUD) Eun Rodriguez MD [facility] [address] [place] [phone] Phone: tel: fax: [facility] Obstetrical Gynecology [address] [place] [phone] Phone: tel: fax: Referral ID Status Reason Start Date Expiration Date V isits Requested Visits Authorized [id number] Closed Specialty Services Required 02/01/2023 03/02/2024 6 6 Question Answer Please select the performing region: [facility] [[id number]] Please select the performing department: [facility] JOÃOSilviano TAMPA [[id number]] # of visits: 6 Encounter Details Date Type Department Care Team (Late st Contact Info) Description 02/01/2023 Orders Only [facility] Family Medicine [address] [phone] Eun Rodriguez MD [address] [address] Counseling for control regarding intrauterine device (IUD) (Primary Dx) Social History Tobacco Use Types [...] on file 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 Gender Identity Female 04/21/2021 2:30 PM CDT Sexual Orientation Straight 04/21/2021 2: 30 PM CDT documented as of this encounter Progress Notes * Augutsa Garcia LPN - 02/01/2023 12:07 PM CDT Amb documented in this encounter Plan of Treatment Scheduled Referrals Name Type Priority Associated Diagnoses Orde r Schedule Ambulatory referral to Obstetrics / Gynecology Outpatient Referral Routine Counseling for control regarding intrauterine device (IUD) Expected: 02/15/2023 (Approximate), Expires: 02/02/2024 documented as of this encounter Visit Diagnoses Diagnosis Counseling for control regarding intrauterine device (IUD)- Primary documented in this encounter Care Teams Gin Feeder Relationship Specialty Start Date End Date Eun Rodriguez MD [address] [place] [address] PCP - General Family Medicine 02/08/19 Carmen Alanis MD [address] [phone] Consulting Physician Gastroenterology 04/28/22 documented as of this encounter
--- OUTSIDE RECORDS SUMMARY | 2024-09-02 20:19 | XMS_ITS | Encounter Summary ---
Author Organization [facility] Address [address] [address] Care Team Providers Care Chore Worker Name Role Phone Eun Rodriguez MD Primary Care Provi ashli Reason for Visit * Reason Comments Preventative Care Encounter Details Date Type Department Care Team (Late st Contact Info) Description 04/16/2020 3:30 PM CDT Office Visit 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 Gender Identity Female 04/21/2021 2:30 PM CDT Sexual Orientation Straight 04/21/2021 2: 30 PM CDT documented as of this encounter Last Filed Vital Signs Vital Sign Reading Time Taken Comments Blood Pressure 100/80 04/16/2020 3:05 PM CDT Pulse 82 04/16/2020 3:05 PM CDT Temperature 37.4 ??C (99.3 ??F) 04/16/2020 3:05 PM CD T Respiratory Rate 14 04/16/2020 3:05 PM CDT Oxygen Saturation 96% 04/16/2020 3:05 PM CDT Inhaled Oxygen Concentration - - Weight 82.6 kg (182 lb) 04/16/2020 3:05 PM CDT Height 157.5 cm (5' 2 ) 04/16/2020 3:05 PM CDT Body Mass Index 33.29 04/16/2020 3:05 PM CDT documented in this encounter Ordered Prescriptions Prescription Sig Dispense Quantity Refills Last Filled Start Date End Date mometasone (NASONEX) 50 mcg/actuation nasal spray Administer 2 sprays into each nostril 2 (two) times a day 17 g 5 04/16/2020 1 documented in this encounter Progress Notes * Eun Rodriguez MD - 04/16/2020 3:30 PM CDT Images from the original note were not included. Subjective/Objective Patient ID: Lidya Bustillos is a 44 y.o. female. Chief Complaint Chief Complaint Patient presents with ??? Preventative Care HPI Pt is presenting for a physical Diet: tries to eat healthy Physical Activities: >3 times a week Sleep:fair -UC- follows with GI, currently on lialda. -allergies- doing well on her current regimen Review of Systems Constitutional: Negative for appetite change and fatigue. HENT: Negative for hearing loss and trouble swallowing. Eyes: Negative for visual disturbance. Respiratory: Negative for cough and shortness of breath. Cardiovascular: Negative for chest pain and palpitations. Gastrointestinal: Negative for abdominal pain, constipation, diarrhea, nausea and vomiting. Genitourinary: Negative for dysuria and menstrual problem. Musculoskeletal: Negative for arthralgias and myalgias. Skin: Negative for rash. No skin lesions Neurological: Negative for syncope and headaches. Psychiatric/Behavioral: Negative for dysphoric mood. The patient is not nervous/anxious. Breast: Negative for tenderness and lump(s). BP 100/80 (BP Location: Left arm, Patient Position: Sitting) Pulse 82 Temp 37.4 ??C (99.3 ??F) (Temporal) Resp 14 Ht 157.5 cm (5' 2 ) Wt 82.6 kg (182 lb) LMP 04/11/2020 (Exact Date) SpO2 96% No BMI 33.29 kg/m?? Physical Exam Vitals signs and nursing note reviewed. Constitutional: General: She [...] equal, round, and reactive to light. Neck: Musculoskeletal: Normal range of motion and neck supple. Thyroid: No thyromegaly. Cardiovascular: Rate and Rhythm: Normal rate and regular rhythm. Heart sounds: Normal heart sounds. No murmur. No friction rub. No gallop. Pulmonary: Effort: Pulmonary effort is normal. Breath sounds: Normal breath sounds. No wheezing or rales. Abdominal: General: Bowel sounds are normal. There is no distension. Palpations: Abdomen is soft. There is no mass. Tenderness: There is no abdominal tenderness. There is no guarding or rebound. Lymphadenopathy: Cervical: No cervical adenopathy. Skin: General: [...] pneumonia/Prevnar:@63 Last Shingrix: @48 Last Flu: yearly Class 1 obesity due to excess calories with serious comorbidity and body mass index (BMI) of 33.0 to 33.9 in adult Assessment & Plan: BMI Follow-up includes: nutrition counseling. Screening for breast cancer - Screening Mammogram Bilateral W [place]; Future Screening, lipid - Lipid panel; Future Seasonal allergies Assessment & Plan: Continue current regimen Continue healthy changes Ulcerative colitis (CMS/HCC) Assessment & Plan: Continue to follow with GI Update me with any changes Other orders - mometasone (NASONEX) 50 mcg/actuation nasal spray; Administer 2 sprays into each nostril 2 (two) times a day Patient/parent was counseled on medication risk, side effects, and possible complications. Patient/parent was counseled on how to properly take the medication and to call with any adverse reactions. Patient/parent stated understanding. documented in this encounter Miscellaneous Notes * Assessment & Plan Note - Eun Rodriguez MD - 04/16/2020 3:56 PM CDTAssociated Problem(s): Ulcerative colitis (HCC) Continue to follow with GI Update me with any changes * Assessment & Plan Note - Eun Rodriguez MD - 04/16/2020 3:56 PM CDTAssociated Problem(s): Seasonal allergies Continue current regimen Continue healthy changes * Assessment & Plan Note - Eun Rodriguez MD - 04/16/2020 3:30 PM CDTAssociated Problem(s): Class 1 obesity due to excess calories with serious comorbidity and body mass index (BMI) of 30.0 to 30.9 in adult (Resolved 04/28/2022) BMI Follow-up includes: nutrition counseling. * Assessment & Plan Note - Eun Rodriguez MD - 04/16/2020 3:28 PM CDTAssociated Problem(s): Well adult exam Work on healthy low carb diet Healthy activity for 30 minutes daily Wear sun screen, seat belts No texting/drinking and driving PMH updated: 03/13/19 Last PAP: 02/21/18 Last mammogram:[facility] 04/08/19 Negative Last DEXA: @58 Last colonoscopy/cologuard: 12/21/15-repeat in 10 years Last hepatitis C: @53 Last Tdap: 02/12 Last pneumonia/Prevnar:@63 Last Shingrix: @48 Last Flu: yearly documented in this encounter Plan of Treatment Not on file documented as of this encounter Procedures Procedure Name Priority Date/Time Associated Diagnosis Comments LIPID PANEL Routine 05/09/2020 8:29 AM CDT Screening, lipid documented in this encounter Results * (ABNORMAL) Lipid panel (05/09/2020 8:29 AM CDT) Cholesterol 180 100 - 199 mg/dL [facility] - 01 Triglycerides 56 0 - 149 mg/dL [facility] - 01 HDL Cholesterol 46 >39 mg/dL [facility] - 01 VLDL 11 5 - 40 mg/dL [facility] - 01 LDL, calculated 123(H) 0 - 99 mg/dL [facility] - 01 Blood specimen (specimen) 05/09/2020 8:29 AM CDT 05/09/2020 Narrative [facility] - 05/10/2020 8:08 AM CDT Performed at: ??01 - [facility] [address] ??[id number] Database Design Analyst: Vasiliy Leach PhD, Phone: ??[phone] us Eun Rodriguez MD LAB BLOOD ORDERABLE S Final Result [facility] - 01 documented in this encounter Visit Diagnoses Diagnosis Well adult exam- Primary Routine general medical examination at a health care facility Class 1 obesity due to excess calories with serious comorbidity and body mass index (BMI) of 33.0 to 33.9 in adult Screening, lipid Seasonal allergies Allergic rhinitis, cause unspecified Ulcerative colitis (HCC) Unspecified ulcerative colitis documented in this encounter Care Teams Chore Worker Relationship Specialty Start Date End Date Eun Rodriguez MD [address] [place], [place] [phone] PCP - General Family Medicine 02/08/19 documented as of this encounter
--- OUTSIDE RECORDS SUMMARY | 2024-09-02 20:19 | XMS_ITS | Encounter Summary ---
Author Organization [facility] Healthcare Address [address] [place] [address] Care Team Providers Care Deployment Engineer Name Role Phone Eun Rodriguez MD Primary Care Provi ashli Carmen Alanis MD Unavailable [phone] Reason for Referral * Diagnostic Imaging (Routine) - Closed Specialty Diagnoses / Procedures Referred By Michi marc Referred To Contact Diagnoses Well woman exam Procedures Screening Mammogram Bilateral W Kavitha Lopez MD [address] [place] [address] Phone: tel: fax: External Order Referral ID Status Reason Start Date Expiration Date Visits Re quested Visits Authorized [id number] Closed 04/08/2024 05/08/2025 1 1 Reason for Visit * Reason Comments Gynecologic Exam WWE Encounter Details Date Type Department Care Team (Late st Contact Info) Description 04/08/2024 9:30 AM CDT Office Visit [facility] Obstetrical Gynecology [address] [place] [phone] Kavitha Shelley MD [address] [place] [phone] Well woman exam (Primary Dx); IUD (intrauterine device) in place Social History Tobacco Use Types Packs/Day Years [...] on file 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 Gender Identity Female 04/21/2021 2:30 PM CDT Sexual Orientation Straight 04/21/2021 2: 30 PM CDT documented as of this encounter Last Filed Vital Signs Vital Sign Reading Time Taken Comments Blood Pressure 104/60 04/08/2024 9:25 AM CDT Pulse - - Temperature - - Respiratory Rate - - Oxygen Saturation - - Inhaled Oxygen Concentration - - Weight 74.4 kg (164 lb) 04/08/2024 9:25 AM CDT Height 157.5 cm (5' 2.01 ) 04/08/2024 9:25 AM CD T Body Mass Index 29.99 04/08/2024 9:25 AM CDT documented in this encounter Progress Notes * Kavitha Shelley MD - 04/08/2024 9:30 AM CDT Annual Gynecologic Exam Chief Complaint Patient presents with Gynecologic Exam WWE Subjective: Amanda Bustillos is a 48 y.o. who presents for annual exam. Past medical history is notable for UC, HLD, BMI 30. History of AUB managed with IUD (placed 04/2023) Karla had some breast tenderness, bilateral. Had some hot flashes at that time as well. No further vaginal bleeding since June. 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 Mother and GM with lung caner OB History 3 Para 2 Term 2 AB 1 Living 2 SAB IAB Ectopic Multiple Live Births 2 Past Surgical History: Procedure Laterality Date LASIK 2006 ROTATOR CUFF REPAIR 2016 TARSAL TUNNEL RELEASE Family History Problem Relation Age of Onset Cancer Maternal Grandmother Heart disease Maternal Grandfather No Known Problems Father Cancer Mother Lung cancer Mother Breast cancer Neg Hx Ovarian cancer Neg Hx Uterine cancer Neg Hx Current Outpatient Medications Medication Sig Dispense Refill cetirizine 10 mg capsule 10 mg daily mesalamine (LIALDA) 1.2 gram EC tablet daily mometasone (NASONEX) 50 mcg/actuation nasal spray USE 2 SPRAYS IN EACH NOSTRIL DAILY 17 g 11 multivit with min-folic acid 200 mcg tablet,chewable Rx: Multivitamin Adult - Tablet PreviDent 5000 Booster Plus 1.1 % paste USE AT BEDIME AND EXPECTORATE TOOTHPASTE AFTER USE BUT DO NOT RINSE AFTER USE No current facility-administered medications for this visit. Objective: PHYSICAL EXAM: Vitals: 04/08/24 0925 BP: 104/60 Weight: 164 lb (74.4 kg) Height: 157.5 cm (5' 2.01 ) Physical Exam Vitals reviewed. Constitutional: Appearance: Normal appearance. HENT: Head: Normocephalic. Eyes: Extraocular Movements: Extraocular movements intact. Cardiovascular: Rate and Rhythm: Normal rate. Pulmonary: Effort: Pulmonary effort is normal. Chest: Breasts: Right: Normal. Left: Normal. Genitourinary: Vagina normal and uterus normal. Right labia: normal. Left Labia: normal. Cervix: visible IUD strings. Cervix: Normal exam. Musculoskeletal: Cervical back: Normal range of motion. Lymphadenopathy: Upper Body: Right upper body: No axillary adenopathy. Left upper body: No axillary adenopathy. Skin: General: Skin is warm and dry. Neurological: Mental Status: She is alert and oriented to person, place, and time. Assessment/Plan: WWE Pap: collected STI screening: not indicated Gardasil: none Breast Cancer Screening: continue yearly mammograms no history of breast bx scattered fibroglandular densities No family history of breast cancer Colon Cancer Screening: UTD Contraception: IUD/partner vasectomy Bone Health: continue Vit D supplementation AUB, perimenopause Managed successfully with levonorgestrel IUD RTC in 1 yr for WWE Kavitha Shelley MD documented in this encounter Plan of Treatment Scheduled Orders Name Type Priority Associated Diagnoses Orde r Schedule Screening Mammogram Bilateral W Rolando Imaging Schedule Routine, Read Routine (OP Routine) Well woman exam Expected: 04/08/2024, Expires: 06/08/2025 documented as of this encounter Results * High Risk HPV DNA Detection with Genotyping (Molecular component) (04/08/2024 9:53 AM CDT) HPV HR 16 Not Detected Not Detected [facility] Comment:Testing performed by : [facility], [address] [place]., [address] HPV HR 18 Not Detected Not Detected [facility] Comment:Testing performed by : [facility], [address] [place]., [address] HPV HR Non 16/18 Not Detected Not [...] this test have been verified by the [facility] Molecular Infectious Disease laboratory. Correlate with separately reported cytology results, as applicable. Interpretive data last revised 23 Testing performed by: [facility], [address] [place]., [address] Endocervical 04/08/2024 9:53 AM CDT 04/09/2024 10:08 AM CDT Narrative [facility] - 04/09/2024 8:57 PM CDT Clinical history and diagnosis->Routine Number of vials->1 Testing type->Screening Last menstrual period (date if known)->IUD Kavitha Shelley MD LAB BODY FLUIDS AND STOOLS O RDERABLES Final Result Performing Organization Address City/State/[facility] Co de Phone Number [facility] [address] [facility] Department [place] [address] [facility] * Pap and High Risk HPV and Genotyping (Cytology Component) (04/08/2024 9:53 AM CDT) Endocervical (Pap test) 04/08/2024 9:53 AM CDT 04/09/2024 6:00 AM CDT Narrative PATHOLOGY [facility] - 04/15/2024 7:43 AM CDT EPIC results best viewed via link to PDF [facility] [place] [address] [place] [address] Note to Patients: This report may contain [...] Gender: ??F : ??1975 (Age: 48) Address: ??[address], [place], [place] ??[address] Hospital #: ??[id number] Service: ??DEFAULT Location: ?? Patient Type: ??[facility] SPECIMEN Taken: ??04/08/2024 Received: ??04/09/2024 Accessioned: ??04/09/2024 [...] this test have been verified by the [facility] Molecular Infectious Disease laboratory. Correlate with reported cytology results, as applicable. Interpretive data last revised 23 tc/04/15/2024 07:43 LISY King (ASCP) Report Electronically Reviewed [...] clinical information and biopsy results as indicated. [facility] Clinical Laboratory Improvement Amendments (CLIA) mandate that cytologic and histologic results be correlated for laboratory quality compliance consultant & improvement standards. ??FOR ALL HIGH-GRADE CASES [...] determined by the Surgical Pathology Department at [facility] as part of an ongoing quality assurance nurse program and in compliance with federally mandated [...] determined by the Surgical Pathology Department of [facility]. ??It has not been cleared or approved by the U. S. Food and Drug Administration. Kavitha Shelley MD LAB CYTOLOGY ORDERABLES Meryl botello Result PATHOLOGY [facility] documented in this encounter Visit Diagnoses Diagnosis Well woman exam- Primary Routine general medical examination at a health care facility IUD (intrauterine device) in place Presence of intrauterine contraceptive device Well woman exam Routine general medical examination at a health care facility documented in this encounter Discontinued Medications Medication Sig Discontinue Reason Start Date End Da te desogestreL-ethinyl estradioL (Isibloom) 0.15-0.03 mg per tablet TAKE 1 TABLET BY MOUTH DAILY Therapy completed 06/21/2023 04/08/2024 documented as of this encounter Care Teams Deployment Engineer Relationship Specialty Start Date End Date Eun Rodriguez MD [address] [place] [address] PCP - General Family Medicine 02/08/19 Carmen Alanis MD [address] [place] [address] Consulting Physician Gastroenterology 04/28/22 documented as of this encounter
--- OUTSIDE RECORDS SUMMARY | 2024-09-02 20:19 | XMS_ITS | Encounter Summary ---
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 Please send letter, thanks. * Telephone Encounter - Hi Izaguirre LPN - 06/01/2023 8:18 AM CDT Call placed, no answer, left message. * Telephone Encounter - Hi Izaguirre LPN - 05/31/2023 10:16 AM CDT Call placed, no answer, lmtc. * Telephone Encounter - Hi Izaguirre LPN - 05/31/2023 10:16 AM CDT ----- Message from Eun Rodriguez MD sent at 05/31/2023 6:38 AM CDT ----- Ms. Bustillos, Your recent result(s) are overall normal, but do show some abnormalities. These include: -your LDL/Bad cholesterol is high. At this level, I would want you to work on healthy lifestyle changes like a lower fat/cholesterol diet, and adding exercise into your day. We can recheck this in one year. You can continue your plan as we last discussed. If you have any questions, please reach out to me. Sincerely, Eun Rodriguez MD documented in this encounter Plan of Treatment Not on file documented as of this encounter Visit Diagnoses Not on filedocumented in this encounter Care Teams Senior Engineering Manager Relationship Specialty Start Date End Date Eun Rodriguez MD [address] [place] [address] PCP - General Family Medicine 02/08/19 Carmen Alanis MD [address] [facility] [address] [place] [address] Consulting Physician Gastroenterology 04/28/22 documented as of this encounter
--- OUTSIDE RECORDS SUMMARY | 2024-09-02 20:19 | XMS_ITS | Encounter Summary ---
Author Organization [facility] Healthcare Address [address] [place] [address] Care Team Providers Care Button Breaker Operator Name Role Phone Eun Rodriguez MD Primary Care Provi ashli Carmen Alanis MD Unavailable [phone] Encounter Details Date Type Department Care Team (Late st Contact Info) Description 06/20/[address] 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 documented in this encounter Plan of Treatment Not on file documented as of this encounter Visit Diagnoses Not on filedocumented in this encounter Care Teams Button Breaker Operator Relationship Specialty Start Date End Date Eun Rodriguez MD [address] [place] [address] PCP - General Family Medicine 02/08/19 Carmen Alanis MD [address] [address] Consulting Physician Gastroenterology 04/28/22 documented as of this encounter
--- OUTSIDE RECORDS SUMMARY | 2024-09-02 20:19 | XMS_ITS | Encounter Summary ---
Author Organization [facility] Medical Group Address [address] [address] Care Team Providers Care Lung Puller Name Role Phone Eun Rodriguez MD Primary Care Provi ashli Encounter Details Date Type Department Care Team (Late st Contact Info) Description 12/09/2019 Telephone [facility] Family Medicine [address] [phone] Eun Rodriguez MD [address] [address] Social History Tobacco Use Types Packs/Day Years Used Date Smoking Tobacco: Never Smokeless Tobacco: Never Alcohol Use Standard Drinks/Week Comments Yes 0 (1 standard drink = 0.6 oz pur e alcohol) AUDIT-C Answer Date Recorded Frequency of Alcohol Consumption 2-4 times a mon03/13/2019 Average Number of Drinks 1 or 2 019 Frequency of Binge Drinking Not on file 03/04 PHQ-2 Answer Date Recorded PHQ-2 Score 0 04/24/2019 Comments No Sex and Gender Information Value Date Recorded Sex Assigned at Not on file 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 11/10/19-12/09/20 * Telephone Encounter - Joslyn Griffin - 12/09/2019 1:31 PM CDT Prior Auth for Mometasone received. Scanned to pt chart and given to JKS documented in this encounter Plan of Treatment Not on file documented as of this encounter Visit Diagnoses Not on filedocumented in this encounter Care Teams Lung Puller Relationship Specialty Start Date End Date Eun Rodriguez MD [address] [place] [address] PCP - General Family Medicine 02/08/19 documented as of this encounter
--- OUTSIDE RECORDS SUMMARY | 2024-09-02 20:19 | XMS_ITS | Encounter Summary ---
Author Organization [facility] Address [address] [address] Care Team Providers Care Gear Hobber Operator Name Role Phone Eun Rodriguez MD Primary Care Provi ashli Reason for Visit * Reason Onset Date Comments Prior Auth Request for Mometasone Furoate 2020 Encounter Details Date Type Department Care Team (Late st Contact Info) Description 12/14/2020 Telephone [facility] Family Medicine [address] [phone] Eun Rodriguez MD [address] [address] Prior Auth Request for Mometasone Furoate Social History Tobacco Use Types Packs/Day Years [...] on file 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 Scanned to pt chart and given to JKS documented in this encounter Plan of Treatment Not on file documented as of this encounter Visit Diagnoses Not on filedocumented in this encounter Care Teams Gear Hobber Operator Relationship Specialty Start Date End Date Eun Rodriguez MD [address] [place] [address] PCP - General Family Medicine 02/08/19 documented as of this encounter
--- OUTSIDE RECORDS SUMMARY | 2024-09-02 20:19 | XMS_ITS | Encounter Summary ---
Author Organization [facility] Address [address] [address] Care Team Providers Care Ceramics Test Engineer Name Role Phone Eun Rodriguez MD Primary Care Provi ashli Carmen Alanis MD Unavailable [phone] Reason for Referral * Procedure (Routine) - Closed Specialty Diagnoses / Procedures Referred By Michi marc Referred To Contact Diagnoses Encounter for insertion of Mirena IUD Procedures IUD ? Insertion/removal/reinsertio n procedure. Kavitha Shelley MD [address] [place] [id number] Phone: tel: fax: [facility] Referral ID Status Reason Start Date Expiration Date Visits Re quested Visits Authorized [id number] Closed 04/14/2023 05/13/2024 1 1 Reason for Visit * Reason Comments Follow-up US Procedure Mirena insert Encounter Details Date Type Department Care Team ([facility] Contact Info) Description 04/14/2023 9:45 AM CDT Office Visit 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 Insertion/removal/reinsertion procedure. Post-Procedure Diagnose(s): Encounter for insertion of Mirena IUD Gynecology Visit Subjective Chief Complaint: Follow-up (US) and Procedure (Mirena insert) HPI: Lidya Bustillos is a 47 y.o. with PMH significant for UC, HLD, BMI 31. She returns for follow-up of irregular bleeding. Had an ultrasound today. Still desires IUD placement. LMP 7/, 03/23 - both felt like a normal period Histories Medical Past Medical History: Diagnosis Date [...] [place] 2 Term Vag-Spont [place] 1 AB Clay Mixer History Patient's last menstrual period was 03/23/2023. Last Pap test: 04/21/2021 - NILM/HPV(-) Family [...] Patient has no known allergies. Objective BP 100/60 Ht 157.5 cm (5' 2.01 ) Wt 168 lb (76.2 kg) LMP 03/23/2023 BMI 30.72 kg/m?? Physical Exam Vitals reviewed. Constitutional: Appearance: Normal appearance. HENT: Head: Normocephalic. Eyes: Extraocular Movements: Extraocular movements intact. Cardiovascular: Rate and Rhythm: Normal rate. Pulmonary: Effort: Pulmonary effort is normal. Genitourinary: Vagina normal and uterus normal. Right labia: normal. Left Labia: normal. Cervix: Normal exam. Musculoskeletal: Cervical back: Normal range of motion. Skin: General: Skin is warm and dry. Neurological: Mental Status: She is alert and oriented to person, place, and time. US: normal size uterus in anteverted position. Endometrium is homogeneous and measures 7.8 mm. 1 fibroid with an anterior uterus measuring 1.8 cm, does not appear to interfere with the endometrial lining. Ovaries not visualized on today's exam due to active bowel. No seen adnexal masses. No free fluid. IUD - Insertion/removal/reinsertion procedure. Performed by: Kavitha Shelley MD Authorized by: Kavitha Shelley MD Consent Given by: Patient Timeout: prior to procedure the correct patient, procedure, and site was verified Verbal consent obtained: Yes Written consent obtained: Yes Risks, alternatives, and patient questions discussed: Yes Insertion: Pelvic exam performed: yes Negative urine test: yes Cervix cleaned and prepped: yes Speculum placed in vagina: yes Tenaculum applied to cervix: yes IUD inserted with no complications: yes IUD type: 1 each levonorgestreL 21 mcg/24 hours (8 yrs) 52 mg Strings trimmed: yes Post-procedure: Patient will follow up after next period: yes Patient tolerance: Patient tolerated the procedure well with no immediate complications Assessment/Plan #AUB, multifactorial - suspect that irregularity is due to perimenopause - normal Hgb and TSH, normal estrogen level 2018 - Pelvic US with one small fibroid, does not interfere with the lining of the uterus - reviewed that fibroids can contribute to heavier and irregular bleeding, but IUD is a good optionfor management of this bleeding - s/p uncomplicated IUD placement today - reviewed possible side effects of IUD and next steps if failure in terms of management of irregular bleeding RTC in 4-6 weeks for IUD check. Kavitha Shelley MD [facility] [facility] [place] documented in this encounter Plan of Treatment Not on file documented as of this encounter Procedures Procedure Name Priority Date/Time Associated Diagnosis Comments POCT HCG, URINE Routine 04/14/2023 9:49 AM CDT Encounter for insertion of mirena IUD OR INSERTION INTRAUTERINE DEVICE IUD Routine 04/14/2023 9:45 AM CDT Encounter for insertion of mirena IUD documented in this encounter Results * POCT hCG, urine (04/14/2023 9:49 AM CDT) HCG, ur, POC Negative Lot Number Comment:[id number] QC Backgroud Clear Acceptable QC Control Line Acceptable Urine 04/14/2023 9:49 AM CDT Kavitha Shelley MD POINT OF CARE TEST ORDERABLE S Final Result * OR INSERTION INTRAUTERINE DEVICE IUD (04/14/2023 9:45 AM CDT) Narrative Kavitha Shelley MD - 04/14/2023 9:45 AM CDT Kavitha Shelley MD ? 04/14/2023 10:42 AM IUD - Insertion/removal/reinsertion procedure. Performed by: Kavitha Shelley MD Authorized by: Kavitha Shelley MD ?? Consent Given by: ??Patient Timeout: prior to procedure the correct patient, procedure, and site was verified ?? Verbal consent obtained: Yes ?? Written consent obtained: Yes ?? Risks, alternatives, and patient questions discussed: Yes ?? Insertion: ??Pelvic exam performed: yes ?Negative urine test: yes ?Cervix cleaned and prepped: yes ?Speculum placed in vagina: yes ?Tenaculum applied to cervix: yes ?IUD inserted with no complications: yes ?IUD type: ??1 each levonorgestreL 21 mcg/24 hours (8 yrs) 52 mg ??Strings trimmed: yes ?? Post-procedure: ??Patient will follow up after next period: yes ?Patient tolerance: ??Patient tolerated the procedure well with no immediate complications Kavitha Shelley MD IN CLINIC/BEDSIDE ORDERABLES Final Result documented in this encounter Visit Diagnoses Diagnosis Encounter for insertion of Mirena IUD- Primary Abnormal uterine bleeding (AUB) Fibroid Leiomyoma of uterus, unspecified documented in this encounter Administered Medications Inactive Administered Medications - up to 3 most recent administrations Medication Order MAR Action Action Date Dose Rate Site levonorgestreL (MIRENA) 21 mcg/24 hours (8 yrs) 52 mg IUD 1 each 1 each, intrauterine, One-Time Injection, Starting on Mon04/14/23 at 1042, For 1 doseIndications:Encounter for insertion of Mirena IUD Given 04/14/2023 10:42 AM CDT 1 each documented in this encounter Orders Medications Ordered That Javier ht Not Have Been Administered Count Last Ordered Date First Ordered Date levonorgestreL (MIRENA) 21 m cg/24 hours (8 yrs) 52 mg IUD 1 each 1 04/14/2023 documented in this encounter Care Teams Ceramics Test Engineer Relationship Specialty Start Date End Date Eun Rodriguez MD [address] [place] [address] PCP - General Family Medicine 02/08/19 Carmen Alanis MD [id number] [facility] [address] [place] [id number] Consulting Physician Gastroenterology 04/28/22 documented as of this encounter
--- OUTSIDE RECORDS SUMMARY | 2024-09-02 20:19 | XMS_ITS | Encounter Summary ---
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 Gender Identity Female 04/21/2021 2:30 PM CDT Sexual Orientation Straight 04/21/2021 2: 30 PM CDT documented as of this encounter Plan of Treatment Not on file documented as of this encounter Procedures Procedure Name Priority Date/Time Associated Diagnosis Comments SCAN - RADIOLOGY/IMAGING 08/12/2020 documented in this encounter Results * SCAN - RADIOLOGY/IMAGING (08/12/2020) Anatomical Region Laterality Modality Other us Provider Scanning Final Result documented in this encounter Visit Diagnoses Not on filedocumented in this encounter Care Teams Historical Manuscripts Curator Relationship Specialty Start Date End Date Eun Rodriguez MD [facility] [address] [place] [id number] PCP - General Family Medicine 02/08/19 documented as of this encounter
--- OUTSIDE RECORDS SUMMARY | 2024-09-02 20:19 | XMS_ITS | Encounter Summary ---
Author Organization [facility] Address [address] [address] Care Team Providers Care Sas Programmer Analyst Name Role Phone Eun Rodriguez MD Primary Care Provi ashli Reason for Referral * Diagnostic Imaging (Routine) - Closed Specialty Diagnoses / Procedures Referred By Contac t Referred To Contact Procedures Screening Mammogram Bilateral W Rolando [facility] [address] [address] Phone: tel: fax: Referral ID Status Reason Start Date Expiration Date Visits Re quested Visits Authorized [id number] Closed 05/07/2021 06/06/2022 1 1 Encounter Details Date Type Department Care Team (Late st Contact Info) Description 05/07/2021 Telephone [facility] [address] [phone] Lacey Christian MA Social History Tobacco Use Types Packs/Day Years Used Date Smoking Tobacco: Never Smokeless Tobacco: Never Alcohol Use Standard Drinks/Week Comments Yes 0 (1 standard drink = 0.6 oz pur e alcohol) AUDIT-C Answer Date Recorded Frequency of Alcohol Consumption 2-4 times a mon th 04/16/2020 Average Number of Drinks 1 or 2 020 Frequency of Binge Drinking Not on file 04/04 PHQ-2 Answer Date Recorded PHQ-2 Total Score 0 04/21/2021 Comments No Sex and Gender Information Value Date Recorded Sex Assigned at Not on file 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 Gender Identity Female 04/21/2021 2:30 PM CDT Sexual Orientation Straight 04/21/2021 2: 30 PM CDT documented as of this encounter Miscellaneous Notes * Telephone Encounter - Lacey Christian MA - 05/07/2021 1:47 PM CDT Update HM documented in this encounter Plan of Treatment Not on file documented as of this encounter Procedures Procedure Name Priority Date/Time Associated Diagnosis Comments SCREENING MAMMOGRAM BILATERAL W ROLANDO Schedule Routine, Read Routine (OP Routine) 05/04/2021 documented in this encounter Results * Screening Mammogram Bilateral W Rolando (05/04/2021) Anatomical Region Laterality Modality Breast Bilateral Mammography us Historical Provider MD [facility] MAM[facility] PROCEDURES Meryl l Result documented in this encounter Visit Diagnoses Not on filedocumented in this encounter Care Teams Sas Programmer Analyst Relationship Specialty Start Date End Date Eun Rodriguez MD [facility] [address] [place] [address] PCP - General Family Medicine 02/08/19 documented as of this encounter
--- OUTSIDE RECORDS SUMMARY | 2024-09-02 20:20 | XMS_ITS | Encounter Summary ---
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
--- OUTSIDE RECORDS SUMMARY | 2024-09-02 20:20 | XMS_ITS | Encounter Summary ---
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 Johnson * Telephone Encounter - Maura Greco MA - 03/26/2019 10:53 AM CDT Left message for pt to call back * Telephone Encounter - Maura Greco MA - 03/26/2019 10:51 AM CDT ----- Message from Eun Rodriguez MD sent at 03/25/2019 7:37 AM CDT ----- Pt's results were normal. For her low sex drive, we can have her follow up with her TRUCK CRANE OPERATOR HELPER. If they have any questions, please let me know. documented in this encounter Plan of Treatment Not on file documented as of this encounter Visit Diagnoses Not on filedocumented in this encounter Care Teams Procedures Rn Relationship Specialty Start Date End Date Eun Rodriguez MD [address] [place] [address] PCP - General Family Medicine 02/08/19 documented as of this encounter
--- OUTSIDE RECORDS SUMMARY | 2024-09-02 20:20 | XMS_ITS | Encounter Summary ---
Author Organization [facility] Address [address] [address] Care Team Providers Care Animal Trainer Supervisor Name Role Phone Eun Rodriguez MD Primary Care Provi ashli Reason for Visit * Reason Comments Preventative Care Encounter Details Date Type Department Care Team (Late st Contact Info) Description 03/13/2019 8:45 AM CDT Office Visit [facility] Family Medicine [address] [phone] Eun Rodriguez MD [address] [address] Routine general medical examination at a health care facility (Primary Dx); Low libido; Pure hypercholesterolemia ; Class 1 obesity due to excess calories without serious comorbidity with body mass index (BMI) of 30.0 to 30.9 in adult; Screening, anemia, deficiency, iron Social History Tobacco Use Types Packs/Day Years Used Date Smoking Tobacco: Never Smokeless Tobacco: Never Alcohol Use Standard Drinks/Week Comments Yes 0 (1 standard drink = 0.6 oz pur e alcohol) AUDIT-C Answer Date Recorded Frequency of Alcohol Consumption 2-4 times a mon03/13/2019 Average Number of Drinks 1 or 2 07/10/2 019 Frequency of Binge Drinking Not on file 03/04 Comments No Sex and Gender Information Value Date Recorded Sex Assigned at Not on file 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 Gender Identity Female 04/21/2021 2:30 PM CDT Sexual Orientation Straight 04/21/2021 2: 30 PM CDT documented as of this encounter Last Filed Vital Signs Vital Sign Reading Time Taken Comments Blood Pressure 100/66 03/13/2019 8:35 AM CDT Pulse 65 03/13/2019 8:35 AM CDT Temperature 36.9 ??C (98.4 ??F) 03/13/2019 8:35 AM CD T Respiratory Rate 14 03/13/2019 8:35 AM CDT Oxygen Saturation 97% 03/13/2019 8:35 AM CDT Inhaled Oxygen Concentration - - Weight 75.3 kg (166 lb) 03/13/2019 8:35 AM CDT Height 157.5 cm (5' 2 ) 03/13/2019 8:35 AM CDT Body Mass Index 30.36 03/13/2019 8:35 AM CDT documented in this encounter Progress Notes * Eun Rodriguez MD - 03/13/2019 8:45 AM CDT Images from the original note were not included. Subjective/Objective Patient ID: Lidya Bustillos is a 43 y.o. female. Chief Complaint Chief Complaint Patient presents with ??? Preventative Care HPI Pt is presenting for a physical Diet: tries for well balanced Physical Activities: >3 times a week-bike rides Sleep:excellent Immunizations: UTD FLU Health Screening: UTD Pap, MMG scheduled Low sex drive, pt would is interested HLP- on healthy lifestyle changes Problem List, Past Medical and Surgical History: Patient Active Problem List Diagnosis ??? Pure hypercholesterolemia ??? Seasonal allergies ??? Routine general medical examination at a health care facility ??? Low libido ??? Class 1 obesity due to excess calories without serious comorbidity with body mass index (BMI) of 30.0 to 30.9 in adult Past Medical History: Diagnosis Date ??? Colitis followed by dr bray ??? Pure hypercholesterolemia 02/21/2018 ??? Routine general medical examination at a health care facility 03/13/2019 ??? Seasonal allergies 02/12/2018 ??? TMJ (dislocation of temporomandibular joint) Past Surgical History: Procedure Laterality Date ??? ROTATOR CUFF REPAIR 2015 ??? TARSAL TUNNEL RELEASE Family History: Family History Problem Relation Age of Onset ??? Cancer Mother ??? Cancer Maternal Grandmother ??? Heart disease Maternal Grandfather Social History: Social History Socioeconomic History ??? Marital status: Spouse name: Not on file ??? Number of children: Not on file ??? Years of education: Not on file ??? Highest education level: Not on file Occupational History ??? Not on file Social Needs ??? Financial resource strain: Not on file ??? Food insecurity: Worry: Not on file Inability: Not on file ??? Transportation needs: Medical: Not on file Non-medical: Not on file Tobacco Use ??? Smoking status: Never Smoker ??? Smokeless tobacco: Never Used Substance and Sexual Activity ??? Alcohol use: Yes Frequency: 2-4 times a month Drinks per session: 1 or 2 ??? Drug use: Never ??? Sexual activity: Not on file Lifestyle ??? Physical activity: Days per week: Not on file Minutes per session: Not on file ??? Stress: Not on file Relationships ??? Social connections: Talks on phone: Not on file Gets together: Not on file Attends congregation service: Not on file Active member of club or organization: Not on file Attends meetings of clubs or organizations: Not on file Relationship status: Not on file ??? Intimate partner violence: Fear of current or ex partner: Not on file Emotionally abused: Not on file Physically abused: Not on file Forced sexual activity: Not on file Other Topics Concern ??? Not on file Social History Narrative ??? Not on file Allergies: No Known Allergies Medications: Current Outpatient Medications: ??? cetirizine (ZyrTEC) 10 mg capsule, 10 mg daily, Disp: , Rfl: ??? mesalamine (LIALDA) 1.2 gram EC tablet, daily, Disp: , Rfl: ??? multivit with min-folic acid (ADULT MULTIVITAMIN EXTRA VITD3) 200 mcg tablet,chewable, Rx: Multivitamin Adult - Tablet, Disp: , Rfl: Review of Systems Constitutional: Negative for appetite change and fatigue. HENT: Negative for hearing loss and trouble swallowing. Eyes: Negative for visual disturbance. Respiratory: Negative for cough and shortness of breath. Cardiovascular: Negative for chest pain. Gastrointestinal: Negative for abdominal pain, constipation, diarrhea, nausea and vomiting. Genitourinary: Negative for menstrual problem. Skin: No skin lesions Neurological: Negative for syncope and headaches. Psychiatric/Behavioral: Negative for dysphoric mood. BP 100/66 Pulse 65 Temp 36.9 ??C (98.4 ??F) (Oral) Resp 14 Ht 157.5 cm (5' 2 ) Wt 75.3 kg(166 lb) LMP 03/03/2019 (Exact Date) HC 98.4 cm (38.74 ) SpO2 97% ? No BMI 30.36 kg/m?? Physical Exam Constitutional: She is oriented to person, place, and time. She appears well- developed and well-nourished. No distress. HENT: Head: Normocephalic and atraumatic. Right Ear: Tympanic membrane, external ear and ear canal normal. Left Ear: Tympanic membrane, external ear and ear canal normal. Nose: Nose normal. Mouth/Throat: Oropharynx is clear and moist. Eyes: Pupils are equal, round, and reactive to light. Conjunctivae and EOM are normal. Neck: Normal range of motion. Neck supple. No thyromegaly present. Cardiovascular: Normal rate, regular rhythm and normal heart sounds. Exam reveals no gallop and no friction rub. No murmur heard. Pulmonary/Chest: Effort normal and breath sounds normal. She has no wheezes. She has no rales. Abdominal: Soft. Bowel sounds are normal. She exhibits no distension and no mass. There is no tenderness. There is no rebound and no guarding. Lymphadenopathy: She has no cervical adenopathy. Neurological: She is alert and oriented to person, place, and time. She exhibits normal muscle tone. Skin: Skin is warm and dry. Psychiatric: She has a normal mood and affect. Her behavior is normal. Thought content normal. Nursing note and vitals reviewed. Assessment/Plan Diagnoses and all orders for this visit: Routine general medical examination at a health care facility (Primary) Assessment & Plan: Work on healthy low carb diet Healthy activity for 30 minutes daily Wear sun screen, seat belts No texting/drinking and driving Orders: - Comprehensive metabolic panel; Future - CBC with auto differential; Future - Lipid panel; Future - TSH reflex to free T4; Future - Estrogens, total; Future - Progesterone; Future Low libido Assessment & Plan: Will check labs Orders: - TSH reflex to free T4; Future - Estrogens, total; Future - Progesterone; Future Pure hypercholesterolemia Assessment & Plan: Labs ordered Orders: - Comprehensive metabolic panel; Future - Lipid panel; Future Class 1 obesity due to excess calories without serious comorbidity with body mass index (BMI) of 30.0 to 30.9 in adult Assessment & Plan: Reviewed BMI Encouraged to focus on healthy lifestyle changes Screening, anemia, deficiency, iron - CBC with auto differential; Future documented in this encounter Miscellaneous Notes * Assessment & Plan Note - Eun Rodriguez MD - 03/13/2019 9:26 AM CDTAssociated Problem(s): Class 1 obesity due to excess calories with serious comorbidity and body mass index (BMI) of 30.0 to 30.9 in adult (Resolved 04/28/2022) Reviewed BMI Encouraged to focus on healthy lifestyle changes * Assessment & Plan Note - Eun Rodriguez MD - 03/13/2019 9:25 AM CDTAssociated Problem(s): Pure hypercholesterolemia Labs ordered * Assessment & Plan Note - Eun Rodriguez MD - 03/13/2019 9:25 AM CDTAssociated Problem(s): Low libido Will check labs * Assessment & Plan Note - Eun Rodriguez MD - 03/13/2019 9:24 AM CDTAssociated Problem(s): Well adult exam Work on healthy low carb diet Healthy activity for 30 minutes daily Wear sun screen, seat belts No texting/drinking and driving documented in this encounter Plan of Treatment Not on file documented as of this encounter Procedures Procedure Name Priority Date/Time Associated Diagnosis Comments THYROID FUNCTION CASCADE Routine 03/22/2019 7:51 AM CDT Routine general medical examination at a health care facility Low libido CBC WITH AUTO DIFFERENTIAL Routine 03/22/2019 7:51 AM CDT Routine general medical examination at a [facility] care facility Screening, anemia, deficiency, iron ESTROGENS, TOTAL Routine 03/22/2019 7:51 AM CDT Routine general medical examination at a [facility] care facility Low libido PROGESTERONE Routine 03/22/2019 7:51 AM CDT Routine general medical examination at a [facility] care facility Low libido LIPID PANEL Routine 03/22/2019 7:51 AM CDT Routine general medical examination at a health care facility Pure hypercholesterolemia COMPREHENSIVE METABOLIC PANEL Routine 03/22/2019 7:51 AM CDT Routine general medical examination at a health care facility Pure hypercholesterolemia documented in this encounter Results * Progesterone (03/22/2019 7:51 AM CDT) Progesterone 15.8 ng/mL [facility] - 01 Comment: ? Follicular phase ? 0.1 - ?? 0.9 ? Luteal phase ? 1.8 - ??23.9 ? Ovulation phase ?0.1 - ??12.0 ?First trimester ?11.0 - ??44.3 ?Second trimester ?? 25.4 - ??83.3 ?Third trimester ?58.7 - 214.0 ? Postmenopausal ? 0.0 - ?? 0.1 Blood specimen (specimen) 03/22/2019 7:51 AM CDT 03/22/2019 Narrative [facility] - 03/25/2019 8:07 AM CDT Performed at: ??01 - [facility] [address], [place], [place] ??[id number] Fire Control System Installer: Vasiliy Leach PhD, Phone: ??[phone] us Eun Rodriguez MD LAB BLOOD ORDERABLE S Final Result [facility] - 01 * Estrogens, total (03/22/2019 7:51 AM CDT) Estrogens, Total 117 pg/mL [facility] 02 Comment: ?Prepubertal ? <40 ?Female Cycle: ?1-10 Days ?61 - 394 ? 11-20 Days ? 122 - 437 ? 21-30 Days ? 156 - 350 ? Post-Menopausal ?<40 ?H[facility] Treatment for Ovulation ? Induction: ? 400 - 800 Blood specimen (specimen) 03/22/2019 7:51 AM CDT 03/22/2019 Narrative [facility] - 03/25/2019 8:07 AM CDT Performed at: ??02 - [facility] ??[id number] Fire Control System Installer: Migue Lovell MD, Phone: ??[phone] us Eun Rodriguez MD LAB BLOOD ORDERABLE S Final Result Performing Organization Address [facility] de Phone Number [facility] 02 * TSH reflex to free T4 (03/22/2019 7:51 AM CDT) [facility] TSH 2.890 0.450 - 4.500 uIU/mL [facility] - 01 Blood specimen (specimen) 03/22/2019 7:51 AM CDT 03/22/2019 Narrative [facility] - 03/25/2019 8:07 AM CDT Performed at: ??01 - [facility], [place], [place] ??[id number] Fire Control System Installer: Vasiliy Leach PhD, Phone: ??[phone] us Eun Rodriguez MD LAB BLOOD ORDERABLE S Final Result Performing Organization Address [facility] de Phone Number [facility] - 01 * Lipid panel (03/22/2019 7:51 AM CDT) [facility] Cholesterol 164 100 - 199 mg/dL [facility] - 01 Triglycerides 78 0 - 149 mg/dL [facility] - 01 HDL Cholesterol 50 >39 mg/dL [facility] - 01 VLDL 16 5 - 40 mg/dL [facility] - 01 LDL, calculated 98 0 - 99 mg/dL [facility] - 01 Blood specimen (specimen) 03/22/2019 7:51 AM CDT 03/22/2019 Narrative [facility] - 03/25/2019 8:07 AM CDT Performed at: ??01 - [facility] [address] ??[id number] Fire Control System Installer: Vasiliy Leach PhD, Phone: ??[phone] us Eun Rodriguez MD LAB BLOOD ORDERABLE S Final Result [facility] - 01 * CBC with auto differential (03/22/2019 7:51 AM CDT) WBC 8.6 3.4 - 10.8 x10E3/uL [facility] - 01 RBC 4.68 3.77 - 5.28 x10E6/uL [facility] - 01 Hgb 13.8 11.1 - 15.9 g/dL [facility] - 01 Hct 40.1 34.0 - 46.6 % [facility] - 01 MCV 86 79 - 97 fL [facility] - 01 MCH 29.5 26.6 - 33.0 pg [facility] - 01 MCHC 34.4 31.5 - 35.7 g/dL [facility] - 01 Rdw 12.7 12.3 - 15.4 % [facility] - 01 Platelets 330 150 - 450 x10E3/uL [facility] - 01 Neutrophils pct 62 Not Estab. % [facility] - 01 Lymphs pct 28 Not Estab. % [facility] - 01 Monocytes pct 9 Not Estab. % [facility] - 01 Eosinophils pct 1 Not Estab. % [facility] - 01 Basophil pct 0 Not Estab. % [facility] - 01 Neutrophil abs 5.3 1.4 - 7.0 x10E3/uL [facility] - 01 [...] x10E3/uL [facility] - 01 Blood specimen (specimen) 03/22/2019 7:51 AM CDT 03/22/2019 Narrative [facility] - 03/25/2019 8:07 AM CDT Performed at: ??01 - [facility] ??[id number] Fire Control System Installer: Vasiliy Leach PhD, Phone: ??[phone] us Eun Rodriguez MD LAB BLOOD ORDERABLE S Final Result [facility] - 01 * Comprehensive metabolic panel (03/22/2019 7:51 AM CDT) Glucose 90 65 - 99 mg/dL [facility] - 01 BUN 14 6 - 24 mg/dL [facility] - 01 Creatinine, Serum 0.81 0.57 - 1.00 mg/dL [facility] - 01 eGFR If NonAfricn Am 88 >59 mL/min/1.73 [facility] - 01 eGFR If Africn Am 101 >59 mL/min/1.73 [facility] - 01 BUN/creat ratio 17 9 - 23 [facility] - 01 Sodium 142 134 - 144 mmol/L [facility] - 01 Potassium, sr 4.4 3.5 - 5.2 mmol/L [facility] - 01 Chloride 106 96 - 106 mmol/L [facility] - 01 CO2 22 20 - 29 mmol/L [facility] - 01 Calcium 9.8 8.7 - 10.2 mg/dL [facility] - 01 Protein, sr 6.5 6.0 - 8.5 g/dL [facility] - 01 Albumin 4.3 3.5 - 5.5 g/dL [facility] - 01 Globulin, Total 2.2 1.5 - 4.5 g/dL [facility] - 01 A/G Ratio 2.0 1.2 - 2.2 [facility] - 01 Bilirubin, Total 0.4 0.0 - 1.2 mg/dL [facility] - 01 Alk phos 71 39 - 117 IU/L [facility] - 01 AST 10 0 - 40 IU/L [facility] - 01 ALT 10 0 - 32 IU/L [facility] - 01 Blood specimen (specimen) 03/22/2019 7:51 AM CDT 03/22/2019 Narrative [facility] - 03/25/2019 8:07 AM CDT Performed at: ??01 - [facility] [address] ??[id number] Fire Control System Installer: Vasiliy Leach PhD, Phone: ??[phone] us Eun Rodriguez MD LAB BLOOD ORDERABLE S Final Result [facility] - 01 documented in this encounter Visit Diagnoses Diagnosis Routine general medical examination at a health care facility- Primary Low libido Pure hypercholesterolemia Class 1 obesity due to excess calories without serious comorbidity with body mass index (BMI) of 30.0 to 30.9 in adult Screening, anemia, deficiency, iron Screening for iron deficiency anemia documented in this encounter Discontinued Medications Medication Sig Discontinue Reason Start Date End Da te triamcinolone (KENALOG) 0.5 % ointment CARY EXT AA BID FOR ITCHY RASH ON ARM Therapy completed 02/04/2019 03/13/2019 documented as of this encounter Care Teams Animal Trainer Supervisor Relationship Specialty Start Date End Date Eun Rodriguez MD [facility] [address] [place] [address] PCP - General Family Medicine 02/08/19 documented as of this encounter
--- OUTSIDE RECORDS SUMMARY | 2024-09-02 20:20 | XMS_ITS | Encounter Summary ---
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 Historical Provider Final Res ult documented in this encounter Visit Diagnoses Not on filedocumented in this encounter Care Teams Canvas Goods Supervisor Relationship Specialty Start Date End Date Eun Rodriguez MD [address] [place] [address] PCP - General Family Medicine 02/08/19 Carmen Alanis MD [address] [address] Consulting Physician Gastroenterology 04/28/22 documented as of this encounter
--- OUTSIDE RECORDS SUMMARY | 2024-09-02 20:20 | XMS_ITS | Encounter Summary ---
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
--- OUTSIDE RECORDS SUMMARY | 2024-09-02 20:20 | XMS_ITS | Encounter Summary ---
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
--- OUTSIDE RECORDS SUMMARY | 2024-09-02 20:20 | XMS_ITS | Encounter Summary ---
Author Organization [facility] Care Team Providers Care Hog Scraper Name Role Phone Unavailable Primary Care Provider Unavailabl e Encounter Details Date Type Department Care Team (Latest Contact Info) Description 12/28/2012 3:22 PM CDT - 12/28/2012 11:59 PM CDT Hospital Encounter [facility] CLINCONV Aileen Hernandez MD [address] [place] [address] Dizziness and giddiness; Headache Social History Tobacco Use Types Packs/Day Years Used Date Smoking Tobacco: Never Assessed Comments Unknown Sex and Gender Information Value Date Recorded Sex Assigned at Not on file 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 HISTORY: Dizziness and head pain. Right ear pain. ?? TECHNIQUE: A standard MRI examination of the brain is performed with and without contrast. ??50 cc OptiMARK contrast administered. ? FINDINGS: ? Midline sagittal structures including the 4th ventricle, tectum, corpus callosum, pituitary, pituitary stalk and craniocervical junction are unremarkable. ??There are no areas of restricted diffusion to indicate acute infarct. ??The ventricles are normal in size and position. ??There are no abnormal areas of susceptibility. ?? No cerebellopontine angle lesions observed. ? 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 ? The orbits are unremarkable. ??There is mucosal thickening in the ethmoid sinuses bilaterally consistent with chronic sinusitis. ?? Normal flow voids in the internal carotid and vertebral basilar artery is noted. ??Ventricles are normal in size and position. ?? Postcontrast images demonstrate no abnormal areas of enhancement. ?? Meninges are unremarkable. ? IMPRESSION: ?? 1. No cerebellopontine angle lesion. ??No focal abnormality in the VII and VIII nerve complexes. ? 2. No acute infarct or mass lesion within the brain parenchyma. ?? SH/pab ?? Radiologist: KANE STAFFORD ?? Attending: ??AILEEN HERNANDEZ M.D. Requesting: AILEEN HERNANDEZ M.D. Completed Time: ?? 12/28/2012 4:43 PM Dictated Time: ?12/28/2012 4:53 PM Transcribed Time: 01/01/2013 1:57 PM Signed by: ?KANE STAFFORD ?? on 01/01/2013 2:50 PM Procedure Note Provider, MD Ruben - 01/03/2017 EXAM: MRI brain with and without contrast HISTORY: Dizziness and head pain. Right ear pain. TECHNIQUE: A standard MRI examination of the brain is performed with and without contrast. 50 cc OptiMARK contrast administered. FINDINGS: Midline sagittal structures including the 4th ventricle, tectum, corpus callosum, pituitary, pituitary stalk and craniocervical junction are unremarkable. There are no areas of restricted diffusion to indicate acute infarct. The ventricles are normal in size and position. There are no abnormal areas of susceptibility. No cerebellopontine angle lesions observed. 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 The orbits are unremarkable. There is mucosal thickening in the ethmoid sinuses bilaterally consistent with chronic sinusitis. Normal flow voids in the internal carotid and vertebral basilar artery is noted. Ventricles are normal in size and position. Postcontrast images demonstrate no abnormal areas of enhancement. Meninges are unremarkable. IMPRESSION: 1. No cerebellopontine angle lesion. No focal abnormality in the VII and VIII nerve complexes. 2. No acute infarct or mass lesion within the brain parenchyma. /garcia Radiologist: KANE STAFFORD Attending: AILEEN HERNNADEZ M.D. Requesting: AILEEN HERNANDEZ M.D. Completed Time: 12/28/2012 4:43 PM Dictated Time: 12/28/2012 4:53 PM Transcribed Time: 01/01/2013 1:57 PM Signed by: KANE STAFFORD on 01/01/2013 2:50 PM us Historical Provider MD NEVAREZ MRI PROCEDURES Final Result documented in this encounter Visit Diagnoses Diagnosis Dizziness and giddiness Headache documented in this encounter
--- OUTSIDE RECORDS SUMMARY | 2024-09-02 20:20 | XMS_ITS | Encounter Summary ---
Author Organization [facility] Address [address] [address] Care Team Providers Care Senior Research Engineer Name Role Phone Eun Rodriguez MD Primary Care Provi ashli Reason for Visit * Reason Comments Rash possible poison christa/ steriod injection was given on monday, but no better Encounter Details Date Type Department Care Team (Late st Contact Info) Description 02/09/2019 10:00 AM CDT Office Visit [facility] After Hours Clinic [address] [facility] [address] [place] [address] Shoaib Mejia MD [address] [address] Poison christa dermatitis (Primary Dx) Social History Tobacco Use Types Packs/Day Years Used Date Smoking Tobacco: Never Assessed Comments Unknown Sex and Gender Information Value Date Recorded Sex Assigned at Not on file Legal Sex Female 9:32 AM CORN GRINDER Gender Identity Female 04/21/2021 2:30 PM CDT Sexual Orientation Straight 04/21/2021 2: 30 PM CDT documented as of this encounter Last Filed Vital Signs Vital Sign Reading Time Taken Comments Blood Pressure 112/72 02/09/2019 9:37 AM CDT Pulse 87 02/09/2019 9:37 AM CDT Temperature 36.7 ??C (98 ??F) 02/09/2019 9:37 AM CDT Respiratory Rate - - Oxygen Saturation - - Inhaled Oxygen Concentration - - Weight 74.5 kg (164 lb 3.2 oz) 02/09/2019 9:37 A M CDT Height 156.8 cm (5' 1.75 ) 02/09/2019 9:37 AM CD T Body Mass Index 30.28 02/09/2019 9:37 AM CDT documented in this encounter Ordered Prescriptions Prescription Sig Dispense Quantity Refills Last Filled Start Date End Date predniSONE (DELTASONE) 20 mg tabletIndications: Poison christa dermatitis Take 3 tablets (60 mg) by mouth daily for 5 days 15 tablet 02/09/2019 9 documented in this encounter Progress Notes * Shoaib Mejia MD - 02/09/2019 10:00 AM CDT Images from the original note were not included. Visit date: 02/09/2019 Patient ID: Lidya Bustillos is a 43 y.o. female. Chief Complaint. Chief Complaint Patient presents with ??? Rash possible poison christa/steriod injection was given on monday, but no better HPI. Patient is a 43 y.o. female Poison Christa This is a new problem. The current episode started in the past 7 days. The problem has been gradually worsening (s/p ER x 2 Injection. ) since onset. Location: bilateral forearms. The rash is characterized by blistering, itchiness and pain. Associated with: poison shumc. Pertinent negatives includeno anorexia, congestion, cough, diarrhea, eye pain, facial edema, fatigue, fever, joint pain, nail changes or shortness of breath. Treatments tried: steroid injection in ER. The treatment provided mild relief. There is no history of allergies, asthma or eczema. History reviewed. No pertinent past medical history. History reviewed. No pertinent surgical history. No Known Allergies Social History Tobacco Use ??? Smoking status: Not on file Substance Use Topics ??? Alcohol use: Not on file History reviewed. No pertinent family history. Current Medications: Outpatient Encounter Medications as of 02/09/2019 Medication Sig Dispense Refill ??? cetirizine (ZyrTEC) 10 mg capsule 10 mg daily ??? mesalamine (LIALDA) 1.2 gram EC tablet daily ??? multivit with min-folic acid (ADULT MULTIVITAMIN EXTRA VITD3) 200 mcg tablet,chewable Rx: Multivitamin Adult - Tablet ??? triamcinolone (KENALOG) 0.5 % ointment CARY EXT AA BID FOR ITCHY RASH ON ARM 0 ??? predniSONE (DELTASONE) 20 mg tablet Take 3 tablets (60 mg) by mouth daily for 5 days 15 tablet 0 No facility-administered encounter medications on file as of 02/09/2019. Review of Systems: Review of Systems Constitutional: Negative for fatigue, fever and unexpected weight change. HENT: Negative for congestion. Eyes: Negative for pain. Respiratory: Negative for cough and shortness of breath. Cardiovascular: Negative for chest pain and palpitations. Gastrointestinal: Negative for abdominal pain, anorexia and diarrhea. Endocrine: Negative for cold intolerance and heat intolerance. Musculoskeletal: Negative for joint pain. Skin: Negative for nail changes and rash. Neurological: Negative for headaches. Psychiatric/Behavioral: Negative for agitation, behavioral problems and confusion. BP 112/72 Pulse 87 Temp 36.7 ??C (98 ??F) Ht 156.8 cm (5' 1.75 ) Wt 74.5 kg (164 lb 3.2 oz) BMI 30.28 kg/m?? Physical Exam: Physical Exam Constitutional: She is oriented to person, place, and time. Vital signs are normal. She appears well-developed and well-nourished. No distress. HENT: Head: Normocephalic and atraumatic. Eyes: Pupils are equal, round, and reactive to light. EOM are normal. Neck: Normal range of motion. Neck supple. Cardiovascular: Normal rate, regular rhythm, normal heart sounds and intact distal pulses. Pulmonary/Chest: Effort normal and breath sounds normal. Neurological: She is alert and oriented to person, place, and time. Skin: She is not diaphoretic. Multiple blisters with patches on bilateral forearm. Psychiatric: She has a normal mood and affect. Her behavior is normal. Judgment and thought contentnormal. Nursing note and vitals reviewed. Assessment & Plan: Diagnoses and all orders for this visit: Poison christa dermatitis (Primary) - predniSONE (DELTASONE) 20 mg tablet; Take 3 tablets (60 mg) by mouth daily for 5 days Body mass index is 30.28 kg/m??. BMI Plan: Nutrition/Activities/Behavioral Counseling. Education Provided. Follow up 1-3 months. Shoaib Mejia MD documented in this encounter Plan of Treatment Not on file documented as of this encounter Visit Diagnoses Diagnosis Poison christa dermatitis- Primary documented in this encounter Historical Medications * This list may reflect changes made after this encounter. mesalamine (LIALDA) 1.2 gram EC tablet daily cetirizine 10 mg capsule 10 mg daily multivit with min-folic acid 200 mcg tablet,chewable Rx: Multivitamin Adult - Tablet triamcinolone (KENALOG) 0.5 % ointment CARY EXT AA BID FOR ITCHY RASH ON ARM 0 02/04/2019 9 added in this encounter Care Teams Senior Research Engineer Relationship Specialty Start Date End Date Eun Rodriguez MD [facility] [address] [place] [id number] PCP - General Family Medicine 02/08/19 documented as of this encounter
--- OUTSIDE RECORDS SUMMARY | 2024-09-02 20:20 | XMS_ITS | Encounter Summary ---
Author Organization [facility] Facility Care Team Providers Care Sales Service Representative Name Role Phone Eun Rodriguez MD Primary Care Provi ashli Carmen Alanis MD Unavailable [phone] Encounter Details Date Type Department Care Team (Latest Contact Info) Description 12/23/2014 Orders Only [facility] Provider, MD Ruben [address] [place] [id number] Social History Tobacco Use Types Packs/Day Years Used Date Smoking Tobacco: Never Assessed Comments Unknown Sex and Gender Information Value Date Recorded Sex Assigned at Not on file Legal Sex Female 9:32 AM KILN OPERATOR Gender Identity Female 04/21/2021 2:30 PM [...] on filedocumented in this encounter Care Teams Sales Service Representative Relationship Specialty Start Date End Date Eun Rodriguez MD [address] [place] [address] PCP - General Family Medicine 02/08/19 Carmen Alanis MD [address] [address] Consulting Physician Gastroenterology 04/28/22 documented as of this encounter
--- OUTSIDE RECORDS SUMMARY | 2024-09-02 20:20 | XMS_ITS | Encounter Summary ---
Author Organization [facility] Address [address] [place] [address] Care Team Providers Care Instruction Assistant Principal Name Role Phone Unavailable Primary Care Provider Unavailabl e Encounter Details Date Type Department Care Team (Late st Contact Info) Description 10/08/2010 7:54 PM RAYMOND MILL OPERATOR - 10/08/2010 11:59 PM RAYMOND MILL OPERATOR Hospital Encounter [facility] Social History Tobacco Use Types Packs/Day Years Used Date Smoking Tobacco: Never Assessed Comments Unknown Sex and Gender Information Value Date Recorded Sex Assigned at Not on file Legal Sex Female 9:32 AM RAYMOND MILL OPERATOR Gender Identity Female 04/21/2021 2:30 PM CDT Sexual Orientation Straight 04/21/2021 2: 30 PM CDT documented as of this encounter Plan of Treatment Not on file documented as of this encounter Visit Diagnoses Not on filedocumented in this encounter
--- OUTSIDE RECORDS SUMMARY | 2024-09-02 20:20 | XMS_ITS | Encounter Summary ---
Author Organization [facility] Address [address] [address] Care Team Providers Care Plumber Maintenance Name Role Phone Unavailable Primary Care Provider Unavailabl e Encounter Details Date Type Department Care Team (Late st Contact Info) Description 12/03/2018 Telephone [facility] Family Medicine [address] [address] Eun Rodriguez MD [address] [place] [address] Social History Tobacco Use Types Packs/Day Years Used Date Smoking Tobacco: Never Assessed Comments Unknown Sex and Gender Information Value Date Recorded Sex Assigned at Not on file Legal Sex Female 9:32 AM AUDIT ASSOCIATE Gender Identity Female 04/21/2021 2:30 PM CDT Sexual Orientation Straight 04/21/2021 2: 30 PM CDT documented as of this encounter Miscellaneous Notes * Telephone Encounter - Caitlyn Jean LPN - 12/03/2018 1:27 PM CDT Called and let pt know results will take a few days to receive and we will call once we get the results and review them. She v/u. * Telephone Encounter - Maryam Polanco - 12/03/2018 10:51 AM CDT Pt would like MRI results done yesterday at [facility]. Thanks/dak documented in this encounter Plan of Treatment Not on file documented as of this encounter Visit Diagnoses Not on filedocumented in this encounter
--- OUTSIDE RECORDS SUMMARY | 2024-09-02 20:20 | XMS_ITS | Encounter Summary ---
Author Organization [facility] Facility Care Team Providers Care Seed District Sales Manager Name Role Phone Eun Rodriguez MD Primary Care Provi ashli Carmen Alanis MD Unavailable [phone] Encounter Details Date Type Department Care Team (Latest Contact Info) Description 02/07/2017 Orders Only [facility]INCONV Provider, MD Ruben [address] [place] [address] Social History Tobacco Use Types Packs/Day Years Used Date Smoking Tobacco: Never Assessed Comments Unknown Sex and Gender Information Value Date Recorded Sex Assigned at Not on file Legal Sex Female 9:32 AM FLAME CUTTER Gender Identity Female 04/21/2021 2:30 PM [...] on filedocumented in this encounter Care Teams Seed District Sales Manager Relationship Specialty Start Date End Date Eun Rodriguez MD [address] [place] [address] PCP - General Family Medicine 02/08/19 Carmen Alanis MD [address] [address] Consulting Physician Gastroenterology 04/28/22 documented as of this encounter
--- OUTSIDE RECORDS SUMMARY | 2024-09-02 20:20 | XMS_ITS | Encounter Summary ---
Author Organization [facility] Care Team Providers Care Instrument Repair Supervisor Name Role Phone Eun Rodriguez MD Primary Care Provi ashli Carmen Alanis MD Unavailable [phone] Encounter Details Date Type Department Care Team (Latest Contact Info) Description 02/06/2017 Orders Only [facility]INCONV Provider, MD Ruben [address] [place] [address] Social History Tobacco Use Types Packs/Day Years Used Date Smoking Tobacco: Never Assessed Comments Unknown Sex and Gender Information Value Date Recorded Sex Assigned at Not on file Legal Sex Female 9:32 AM SENIOR CATERING SALES MANAGER Gender Identity Female 04/21/2021 2:30 PM [...] on filedocumented in this encounter Care Teams Instrument Repair Supervisor Relationship Specialty Start Date End Date Eun Rodriguez MD [address] [place] [address] PCP - General Family Medicine 02/08/19 Carmen Alanis MD [address] [address] Consulting Physician Gastroenterology 04/28/22 documented as of this encounter
--- OUTSIDE RECORDS SUMMARY | 2024-09-02 20:20 | XMS_ITS | Encounter Summary ---
Author Organization [facility] Facility Care Team Providers Care Graphic Illustrator Name Role Phone Eun Rodriguez MD Primary Care Provi ashli Carmen Alanis MD Unavailable [phone] Encounter Details Date Type Department Care Team (Latest Contact Info) Description 02/28/2018 Orders Only [facility] CLINCONV ProviderRuben MD [address] [place] [address] Social History Tobacco Use Types Packs/Day Years Used Date Smoking Tobacco: Never Assessed Comments Unknown Sex and Gender Information Value Date Recorded Sex Assigned at Not on file Legal Sex Female 9:32 AM TRAINING PROGRAM ASSISTANT Gender Identity Female 04/21/2021 2:30 PM CDT Sexual Orientation Straight 04/21/2021 2: 30 PM CDT documented as of this encounter Plan of Treatment Not on file documented as of this encounter Procedures Procedure Name Priority Date/Time Associated Diagnosis Comments COLONOSCOPY - SCAN 02/28/2018 12 :00 AM CDT documented in this encounter Results * COLONOSCOPY - SCAN (02/28/2018 12:00 AM CDT) Narrative 02/28/2018 12:00 AM CDT Ordered by an unspecified provider. Historical Provider Final Res ult documented in this encounter Visit Diagnoses Not on filedocumented in this encounter Care Teams Graphic Illustrator Relationship Specialty Start Date End Date Eun Rodriguez MD [address] [place] [address] PCP - General Family Medicine 02/08/19 Carmen Alanis MD [address] [address] Consulting Physician Gastroenterology 04/28/22 documented as of this encounter
--- OUTSIDE RECORDS SUMMARY | 2024-09-02 20:20 | XMS_ITS | Encounter Summary ---
Author Organization [facility] Healthcare Address [address] [place] [address] Care Team Providers Care Casing Running Machine Tender Name Role Phone Unavailable Primary Care Provider Unavailabl e Encounter Details Date Type Department Care Team (Latest Contact Info) Description 04/10/2015 6:51 AM CDT - 04/10/2015 9:28 AM CDT Hospital Encounter [facility] Laura Ferguson MD [address] [place] [id number] Benign neoplasm of skin of other and unspecified parts of face Social History Tobacco Use Types Packs/Day Years Used Date Smoking Tobacco: Never Assessed Comments Unknown Sex and Gender Information Value Date Recorded Sex Assigned at Not on file Legal Sex Female 9:32 AM SURVIVAL SPECIALIST Gender Identity Female 04/21/2021 2:30 PM CDT Sexual Orientation Straight 04/21/2021 2: 30 PM CDT documented as of this encounter Last Filed Vital Signs Vital Sign Reading Time Taken Comments Blood Pressure 120/75 04/10/2015 8:07 AM CDT Pulse 77 04/10/2015 8:07 AM CDT Temperature 36.9 ??C (98.4 ??F) 04/10/2015 8:07 AM CD T Respiratory Rate - - Oxygen Saturation 96% 04/10/2015 8:07 AM CDT Inhaled Oxygen Concentration - - Weight 77.1 kg (170 lb) 04/10/2015 8:07 AM CDT Height 160 cm (5' 3 ) 04/10/2015 8:07 AM CDT Body Mass Index 30.11 04/10/2015 8:07 AM CDT documented in this encounter Plan of Treatment Not on file documented as of this encounter Procedures Procedure Name Priority Date/Time Associated Diagnosis Comments SCAN - PATHOLOGY 04/13/2015 12:0 0 AM CDT PROCEDURE - RESULT 04/10/2015 12 :00 AM CDT documented in this encounter Results * SCAN - PATHOLOGY (04/13/2015 12:00 AM CDT) Narrative 04/13/2015 12:00 AM CDT Ordered by an unspecified provider. Historical Provider Final Res ult * PROCEDURE - RESULT (04/10/2015 12:00 AM CDT) Narrative 04/10/2015 12:00 AM CDT Ordered by an unspecified provider. us Historical Provider Final Res ult documented in this encounter Visit Diagnoses Diagnosis Benign neoplasm of skin of other and unspecified parts of face documented in this encounter
--- OUTSIDE RECORDS SUMMARY | 2024-09-02 20:21 | XMS_ITS | Continuity of Care Document ---
Author Organization [facility] Address [address] [place] [address] Phone Care Team Providers Care Defence Intelligence Analyst Name Role Phone Jazmine Prescott MD Unavailable Unavailabl e Allergies, Adverse Reactions, Alerts Substance Reaction Status Criticality No Known Drug Allergies Active No I nformation Medications Medication Instructions Dosage Effective Dates (start - stop) Status Comments Nasonex 50 mcg/actuation Dragoon spray 2 spray by intranasal route every [...] Diagnoses Date Provider Providers Copied on Encounter [facility], [address], [place], [place], [address] , tel: [phone] Sal No Information Kenyon Charlesh. [address] [place], [place], [address]. tel:[phone] [facility], [address], [place], [place], [address] , [place] tel: [phone] Sal Encounter for preventive health examinationAller gic rhinitis, unspecifiedUlcer ative colitis, unspecified, without complicationsRig ht hip painScreening for malignant neoplasm of colon 7 Kenyon Lucero. [address] [place], [place], [address]. tel:[phone] Referring Provider: Jazmine Prescott, [place], [address]. tel:[phone] [facility], [address], [place], [place], [address] , tel: [phone] [place] Encounter for preventive health examinationAller gic rhinitis, unspecifiedUlcer ative colitis, unspecified, without complications Stefan-0 2-201 6 Kenyon Orrorah. [address] [place], [place], [address]. tel:[phone] Referring Provider: [place], [address]. tel:[phone] [facility], [address], [place], [place], [address] , tel: [phone] [place] DiarrheaGuaiac positive stools Apr-0 6-201 6 Kenyon Orrorah. [address] [place], [address]. tel:[phone] Referring Provider: [place], [address]. tel:[phone] [facility], [address], [place], [place], [address] , tel: [phone] [place] No Information Jun-2 7- 5 Kenyon Jazmine. [address] [place], [place], [address]. tel:[phone] [facility], [address], [place], [place], [address] , [place] tel: [phone] [place] Routine Medical ExamAllergic rhinitis, cause unspecifiedGynec ological ExaminationLipom aScreening for malignant neoplasms of the cervix Apr-2 0-201 5 Kenyon Orrorah. [address] [place], [place], [address]. tel:[phone] Referring Provider: Jazmine Prescott, [place], [address]. tel:[phone] [facility], [address], [place], [place], [address] , [place] tel: [phone] [place] Pain in right shoulder Sep-0 4 Prescott Jazmine. [address] [place], [place], [address]. tel:[phone] [facility], [address], [place], [place], [address] , [place] tel: [phone] [place] Pain in right shoulder Apr-2 4 Prescott Jazmine. [address] [place], [place], [address]. tel:[phone] [facility], [address], [place], [place], [address] , [place] tel: [phone] [place] Right shoulder injury Apr-0 4 Prescott Jazmine. [address] [place], [place], [address]. tel:[phone] Referring Provider: Jazmine Prescott, [address] [place], [address]. tel:[phone] [facility], [address], [place], [place], [address] , tel: [phone] [place] Poison ivyMuscle pain Feb- 4 Prescott Jazmine. [address] [place], [place], [address]. tel:[phone] Referring Provider: Jazmine Prescott, [place], [address]. tel:[phone] [facility], [address], [place], [place], [address] , [place] tel: [phone] [place] Breast density Feb- 4 Prescott Jazmine. [address] [place], [place], [address]. tel:[phone] [facility], [address], [place], [place], [address] , [place] tel: [phone] [place] Routine Medical ExamAllergic rhinitis, cause unspecifiedRouti ne Medical Exam 4 Kenyon Lucero. [address] [place], [place], [address]. [phone] Referring Provider: Jazmine Prescott, [address] [place], [address]. tel:[phone] [facility], [address], [place], [place], [address] , [place] tel: [phone] [place] Screening for lipoid disordersOther psoriasis and similar disorders 4 Kenyon Lucero. [address] [place], [place], [address]. tel:[phone] Referring Provider: Jazmine Prescott, [address] [place], [address]. tel:[phone] [facility], [address], [place], [place], [address] , [place] tel: [phone] Gene Terrell Information 3 Kassy Bradford. [address] [facility], [address], [place], [address], [place]. tel:[phone] [facility], [address], [place], [place], [address] , [place] tel: [phone] [place] Screening for lipoid disorders 3 Kenyon Lucero. [address] [place], [place], [address]. tel:[phone] Referring Provider: Jazmine Prescott, [address] [place], [address]. tel:[phone] [facility], [address], [place], [place], [address] , [place] tel: [phone] [place] Routine medical examAllergic rhinitis, cause unspecifiedEar painRoutine general medical examination at a health care facility 3 Kenyon Lucero. [address] [place], [address]. tel:[phone] Referring Provider: Jazmine Prescott, [address] [place], [address]. tel:[phone] [facility], [address], [place], [place], [address] , [place] tel: [phone] Gene [place] Dizziness - light-headed 3 Kassy Bradford. [address] [facility], [address], [place], [address], [place]. tel:[phone] [facility], [address], [place], [place], [address] , [place] tel: [phone] [place] No Information 3 Kassy Bradford. [address] [facility], [address], [place], [facility], [place]. tel:[phone] [facility], [address], [place], [place], [address] , [place] tel: [phone] [facility] Acute serous otitis media 1 Kassy Bradford. [address] [facility], [address], [place], [facility], [place]. tel:[phone] Referring Provider: Suzette Boston, [facility]4 [facility] [address], [place], [address]. tel:[phone] [facility], [address], [place], [place], [address] , [place] tel: [phone] [facility] Acute upper respiratory infections of unspecified site 0 1 Jovani Anderson. [address] , [address], [place], [place], [address], [place]. tel:[phone] Referring Provider: Suzette Boston, [facility]4 [facility] [address], [place], [facility]. tel:[phone] [facility], [address], [place], [address] , [place] tel: [phone] Candelariason SAMIR Routine general medical examination at a health care facilityUnspecif ied hypertrophic and atrophic conditions of skinPain in joint involving pelvic region and thighRoutine general medical examination at a health care facilityNEED FOR PROPHYLACTIC VACCINATION WITH COMBINED DIPHTHERIA-TETAN US-PERTUSSIS (DTP) (DTAP) VACCINE 1 Christi Cassi. [address], [address], [place], [place], [address], [place]. tel:[phone] Referring Provider: Suzette Boston, [address] [facility] [address], [place], [address]. tel:[phone] [facility], [address], [place], [place], [address] , [place] tel: [phone] [facility] DERMATOPHYTOSIS OF NAIL 2200 9 [facility]. [address] [facility], [address], [place], [facility], [place]. tel:[phone] [facility], [address], [place], [place], [address] , [place] tel: [phone] [facility] ROUTINE MEDICAL EXAM 5200 7 Kassy Bradford. [address] [facility], [address], [place], [address], [place]. tel:[phone] [facility], [address], [place], [place], [address] , [place] tel: [phone] [facility] VACCINATION FOR TD-DT 0-200 6 Kassy Bradford. [address] [facility], [address], [place], [address], [place]. tel: [phone] [facility], [address], [place], [place], [address] , [place] tel: [phone] [facility] JOINT PAIN-ANKLE 5200 6 Christielias Oleasie. [address], [address], [place], [place], [address], [place]. tel:[phone] [facility], [address], [place], [address] , [place] tel: [phone] Gene [facility] SPRAIN HIP & THIGH NEC May-1 8-200 4 Christi Ye. [address], [address], [place], [place], [address], [place]. tel:[phone] [facility], [address], [place], [place], [address] , [place] tel:[phone] [facility] CONJUNCTIVITIS NOS May-1 0-200 4 [facility]. [address] [facility], [address], [place], [facility], [place]. tel:[phone] [facility], [address], [place], [place], [address] , [place] tel: [phone] [facility] CONTUSION OF FINGER Aug-1 2-200 3 Christi Ye. [address], [address], [place], [place], [address], [place]. tel:[phone] [facility], [address], [place], [address] , [place] tel:[phone] [facility] ACUTE PHARYNGITIS January-1 4-200 3 [facility]. [address] [facility], [address], [place], [facility], [place]. tel:[phone] [facility], [address], [place], [place], [address] , [place] tel:[phone] [facility] ACUTE SINUSITIS NOSALLERGIC RHINITIS NOS Apr-0 4-200 3 [facility]. [address] [facility], [address], [place], [facility], [place]. tel:[phone] [facility], [address], [place], [address] , [place] tel:[phone] [facility] SCREENING-PULMON TANVIR TBSCREEN-DIABETE S MELLITUS Aug-0 9-200 2 [facility]. [address] [facility], [address], [place], [facility], [place]. tel:[phone] [facility], [address], [place], [place], [address] , [place] tel: [phone] [facility] DEPRESSIVE DISORDER NECABNORMAL LOSS OF WEIGHT 200 2 [facility] Suzette. [address] [facility], [address], [place], [facility], . tel: [phone] [facility], [address], [place], [address] [place] [address] , tel:[phone] Gene IM OTHER PSORIASISPITYRIA SIS ROSEA 200 2 [facility] Suzette. [address] [facility], [address], [place], [facility], . tel: [phone] [facility], [address], [place], [address] [place] [address] , tel: [phone] Gene IM MIGRNE UNSP WO [facility] MGRN 1 [facility] Suzette. [address] [facility], [address], [place], [facility], . tel: [phone] [facility], [address], [place], [address] [place] [address] , tel:[phone] Gene DAWSON HEADACHE 1 Eben Nguyen. [address] , [address], [place], [address] [place] [address], . tel:[phone] [facility], [address], [place], [address] [place] [address] , tel: [phone] [facility] ACUTE URI NOS 1 [facility]. [address] [facility], [address], [place], [facility], . tel:[phone] Family History Family Member Type Diagnosis Age At Onset Mother Problem (finding) malignant neoplasm of l bettie Sister Problem (finding) Maternal grandfather Problem (finding) Myocardial infa rction Maternal grandmother Problem (finding) malignant neopl asm of lung Mother Problem (finding) Alive and well Problem (finding) Family history of raised blood lipids 2 daughters Problem (finding) Alive and well Sister Problem (finding) MVA (Cause Of ) Immunizations Vaccine Date Status Comments Influenza virus vaccine, spl it virus, 3 years and older, intramuscular use (fluvirin) administered Note: Walgr eejunior ; Source: Source Unspecified flu (split) (3 yrs or older) administered Note: date is approximate ; Source: Other Provider flu (split) (3 yrs or older) administered Source: Public Agency Tdap administered Source: [facility] unization Record 12215 - TD administered Source: Source Unspecified Payers Payer name Insurance type Covered green party ID Authoriza gage(s) [facility] [id number] Social History Type Description Quantity Date Captured [...]
--- OUTSIDE RECORDS SUMMARY | 2024-09-02 20:21 | XMS_ITS | Continuity of Care Document ---
Author Organization [facility] Address [address] [place] [address] [place] [address] Phone Care Team Providers Care Salary Manager Name Role Phone Kleber Arroyo Unavailable Unavailable Procedures Procedure Date Office/outpatient Visit, [facility] Office/outpatient Visit, [facility] Advance Directives Directive Yes / No Effective Date File Name No Information Encounters Encounter Description Practice Location Reason(s) For Visit Diagnoses Date Provider Providers Copied on Encounter [place] [facility] [address] [place], [place] [address] [address], [place], [place], [address], tel:[phone] [facility] No Information 6 0 Dina Kleber. [facility] [address], [facility], [place]. tel:[phone] Office/outpat ient Visit, [facility], [address] [place] [address] [address], [place], [place], [address], tel:[phone] [facility] No Information 2- 0 Krishnasamy Kleber. [address], [facility], [place]. tel:[phone] Family History Family Member Type Diagnosis Age At Onset No Information Payers Payer name Insurance type Covered green party ID Authoriza tion(s) No Information Social [...]
== END 2024-08-26 08:39 | disposition home or self-care (01) ==
LOC: ANHIMG 08:39
PROVIDERS: PCP Family Medicine
DX: Z12.31 Encounter for screening mammogram for malignant neoplasm of breast (principal)
CPT/HCPCS: 77063; 77067

== ENCOUNTER 2025-05-07 12:40 | Outpatient (CLI) | payer OTHER, SELFPAY ==
--- OUTSIDE RECORDS SUMMARY | 2009-11-27 10:30 | XMS_ITS | Continuity of Care Document ---
Author Organization [facility] Address [address] [place] [address] [place] [address] Phone Care Team Providers Care Demo Coordinator Name Role Phone Kleber Arroyo Unavailable Unavailable Procedures Procedure Date Office/outpatient Visit, [facility] Office/outpatient Visit, [facility] Advance Directives Directive Yes / No Effective Date File Name No Information Encounters Encounter Description Practice Location Reason(s) For Visit Diagnoses Date Provider Providers Copied on Encounter Office/outpat ient Visit, [facility], [address] [place], [place] [address] [address], [place], [place], [address], tel:[phone] [facility] No Information 6 0 Dina Kleber. [facility] [address], [facility], [place]. tel:[phone] Office/outpat ient Visit, [facility], [address] [place] [address] [address], [place], [place], [address], tel:[phone] [facility] No Information 2- 0 Krishnasamy Kleber. [address], [facility], [place]. tel:[phone] Family History Family Member Type Diagnosis Age At Onset No Information Payers Payer name Insurance type Covered alliance party ID Authoriza tion(s) No Information Social History Type Description Quantity Date Captured Comments Sex Female Smoking Status No Information Chief Complaint And Reason For Visit No Information Reason For Referral Reason For Referral No Information History Of Present Illness Encounter Date Complaint History Of Prese nt Illness No Information Functional Status Date Functional Assessmen t No Information Instructions Date Instruction Additional Infor mation No Information Assessments Type Assessment Date No Information Patient Care Teams Name Effective Dates (start - stop) Status Members No Information
--- OUTSIDE RECORDS SUMMARY | 2018-01-25 10:57 | XMS_ITS | Continuity of Care Document ---
Author Organization [facility] Address [address] [place] [address] Phone Care Team Providers Care Human Resources Analyst Name Role Phone Jazmine Prescott MD Unavailable Unavailabl e Allergies, Adverse Reactions, Alerts Substance Reaction Status Criticality No Known Drug Allergies Active No I nformation Medications Medication Instructions Dosage Effective Dates (start - stop) Status Comments Nasonex 50 mcg/actuation Elm Mott spray 2 spray by intranasal route every day in each nostril - Active Zyrtec 10 mg tablet take 1 tablet by ora l route every day 10 MG - Active multivitamin Cap take 1 capsule by or al route every day - Active Advance Directives Directive Yes / No Effective Date File Name No Information Encounters Encounter Description Practice Location Reason(s) For Visit Diagnoses Date Provider Providers Copied on Encounter [facility], [address], [place], [place], [address] , tel: [phone] [place] No Information Kenyon Charlesh. [address] [place], [place], [address]. tel:[phone] [facility], [address], [place], [place], [address] , [place] tel: [phone] [place] Encounter for preventive health examinationAller gic rhinitis, unspecifiedUlcer ative colitis, unspecified, without complicationsRig ht hip painScreening for malignant neoplasm of colon 7 Kenyon Lucero. [address] [place], [place], [address]. tel:[phone] Referring Provider: Jazmine Prescott, [place], [address]. tel:[phone] [facility], [address], [place], [place], [address] , tel: [phone] [place] Encounter for preventive health examinationAller gic rhinitis, unspecifiedUlcer ative colitis, unspecified, without complications Stefan-0 2-201 6 Kenyon Orrorah. [address] [place], [place], [address]. tel:[phone] Referring Provider: [place], [address]. tel:[phone] [facility], [address], [place], [place], [address] , tel: [phone] [place] DiarrheaGuaiac positive stools Apr-0 6-201 6 Kenyon Orrorah. [address] [place], [place], [address]. tel:[phone] Referring Provider: [place], [address]. tel:[phone] [facility], [address], [place], [place], [address] , tel: [phone] [place] No Information Jun-2 7- 5 Kenyon Jazmine. [address] [place], [place], [address]. tel:[phone] [facility], [address], [place], [place], [address] , [place] tel: [phone] [place] Routine Medical ExamAllergic rhinitis, cause unspecifiedGynec ological ExaminationLipom aScreening for malignant neoplasms of the cervix Apr-2 0-201 5 Kenyon Orrorah. [address] [place], [place], [address]. tel:[phone] Referring Provider: Jazmine Prescott, [place], [address]. tel:[phone] [facility], [address], [place], [place], [address] , [place] tel: [phone] [place] Pain in right shoulder Sep-0 4 Prescott Jazmine. [address] [place], [place], [address]. tel:[phone] [facility], [address], [place], [place], [address] , [place] tel: [phone] [place] Pain in right shoulder Apr-2 4 Prescott Jazmine. [address] [place], [place], [address]. tel:[phone] [facility], [address], [place], [place], [address] , [place] tel: [phone] [place] Right shoulder injury Apr-0 4 Prescott Jazmine. [address] [place], [place], [address]. tel:[phone] Referring Provider: Jazmine Prescott, [address] [place], [address]. tel:[phone] [facility], [address], [place], [place], [address] , tel: [phone] [place] Poison ivyMuscle pain Feb- 4 Prescott Jazmine. [address] [place], [place], [address]. tel:[phone] Referring Provider: Jazmine Prescott, [place], [address]. tel:[phone] [facility], [address], [place], [place], [address] , [place] tel: [phone] [place] Breast density Feb- 4 Prescott Jazmine. [address] [place], [place], [address]. tel:[phone] [facility], [address], [place], [place], [address] , [place] tel: [phone] [place] Routine Medical ExamAllergic rhinitis, cause unspecifiedRouti ne Medical Exam 4 Kenyon Lucero. [address] [place], [place], [address]. [phone] Referring Provider: Jazmine Prescott, [address] [place], [address]. tel:[phone] [facility], [address], [place], [place], [address] , [place] tel: [phone] [place] Screening for lipoid disordersOther psoriasis and similar disorders 4 Kenyon Lucero. [address] [place], [place], [address]. tel:[phone] Referring Provider: Jazimne Prescott, [address] [place], [address]. tel:[phone] [facility], [address], [place], [place], [address] , [place] tel: [phone] Gene Terrell Information 3 Kassy Bradford. [address] [facility], [address], [place], [address], [place]. tel:[phone] [facility], [address], [place], [place], [address] , [place] tel: [phone] [place] Screening for lipoid disorders 3 Kenyon Lucero. [address] [place], [place], [address]. tel:[phone] Referring Provider: Jazmine Prescott, [address] [place], [address]. tel:[phone] [facility], [address], [place], [place], [address] , [place] tel: [phone] [place] Routine medical examAllergic rhinitis, cause unspecifiedEar painRoutine general medical examination at a health care facility 3 Kenyon Lucero. [address] [place], [place], [address]. tel:[phone] Referring Provider: Jazmine Prescott, [address] [place], [address]. tel:[phone] [facility], [address], [place], [place], [address] , [place] tel: [phone] Gene [facility] Dizziness - light-headed 3 Kassy Bradford. [address] [facility], [address], [place], [address], [place]. tel:[phone] [facility], [address], [place], [place], [address] , [place] tel: [phone] Gene [facility] No Information 3 Kassy Bradford. [address] [facility], [address], [place], [facility], [place]. tel:[phone] [facility], [address], [place], [place], [address] , [place] tel: [phone] Gene [facility] Acute serous otitis media 1 Kassy Bradford. [address] [facility], [address], [place], [facility], [place]. tel:[phone] Referring Provider: Suzette Boston, [facility] [address], [place], [address]. tel:[phone] [facility], [address], [place], [place], [address] , [place] tel: [phone] Gene IM Acute upper respiratory infections of unspecified site 0 1 Jovani Anderson. [address] , [address], [place], [place], [address], [place]. tel:[phone] Referring Provider: Suzette Boston, [facility] [address], [place], [facility]. tel:[phone] [facility], [address], [place], [place], [address] , [place] tel: [phone] Candelariason SAMIR Routine general medical examination at a health care facilityUnspecif ied hypertrophic and atrophic conditions of skinPain in joint involving pelvic region and thighRoutine general medical examination at a health care facilityNEED FOR PROPHYLACTIC VACCINATION WITH COMBINED DIPHTHERIA-TETAN US-PERTUSSIS (DTP) (DTAP) VACCINE 1 Christi Cassi. [address], [address], [place], [place], [address], [place]. tel:[phone] Referring Provider: Suzette Boston, [address] [facility] [facility] [address], [place], [address]. tel:[phone] [facility], [address], [place], [place], [address] , [place] tel: [phone] Gene IM DERMATOPHYTOSIS OF NAIL 2200 9 [facility] Bradford. [address] [facility] [facility], [address], [place], [facility], [place]. tel:[phone] [facility], [address], [place], [place], [address] , [place] tel: [phone] Gene IM ROUTINE MEDICAL EXAM 5200 7 Kassy Bradford. [address] [facility], [address], [place], [address], [place]. tel:[phone] [facility], [address], [place], [place], [address] , [place] tel: [phone] Gene IM VACCINATION FOR TD-DT 0-200 6 Kassy Bradford. [address] [facility], [address], [place], [address], [place]. tel: [phone] [facility], [address], [place], [place], [address] , [place] tel: [phone] Gene IM JOINT PAIN-ANKLE 5200 6 Christielias Oleasie. [address], [address], [place], [place], [address], [place]. tel:[phone] [facility], [address], [place], [place], [address] , [place] tel: [phone] Gene IM SPRAIN HIP & THIGH NEC May-1 8-200 4 Christi Ye. [address], [address], [place], [place], [address], [place]. tel:[phone] [facility], [address], [place], [place], [address] , [place] tel:[phone] [facility] CONJUNCTIVITIS NOS May-1 0-200 4 [facility]. [address] [facility], [address], [place], [facility], [place]. tel:[phone] [facility], [address], [place], [place], [address] , [place] tel: [phone] [facility] CONTUSION OF FINGER Aug-1 2-200 3 Christi Ye. [address], [address], [place], [place], [address], [place]. tel:[phone] [facility], [address], [place], [place], [address] , [place] tel:[phone] [facility] ACUTE PHARYNGITIS January-1 4-200 3 [facility]. [address] [facility], [address], [place], [facility], [place]. tel:[phone] [facility], [address], [place], [place], [address] , [place] tel:[phone] [facility] ACUTE SINUSITIS NOSALLERGIC RHINITIS NOS Apr-0 4-200 3 [facility]. [address] [facility], [address], [place], [facility], [place]. tel:[phone] [facility], [address], [place], [place], [address] , [place] tel:[phone] [facility] SCREENING-PULMON TANVIR TBSCREEN-DIABETE S MELLITUS Aug-0 9-200 2 [facility]. [address] [facility], [address], [place], [facility], [place]. tel:[phone] [facility], [address], [place], [place], [address] , [place] tel: [phone] [facility] DEPRESSIVE DISORDER NECABNORMAL LOSS OF WEIGHT 200 2 [facility] Suzette. [address] [facility], [address], [place], [facility], . tel: [phone] [facility], [address], [place], [address] [place] [address] , tel:[phone] Gene IM OTHER PSORIASISPITYRIA SIS ROSEA 2 [facility]. [address] [facility], [address], [place], [facility], . tel: [phone] [facility], [address], [place], [address] [place] [address] , tel: [phone] Gene IM MIGRNE UNSP WO [facility] MGRN 1 [facility] Suzette. [address] [facility] [facility], [address], [place], [facility], . tel: [phone] [facility], [address], [place], [address] [place] [address] , tel:[phone] Gene IM HEADACHE 1 Eben Nguyen. [address] , [address], [place], [place], [address] [place] [address], . tel:[phone] [facility], [address], [place], [address] [place] [address] , tel: [phone] Gene IM ACUTE URI NOS 1 [facility] Suzette. [address] [facility], [address], [place], [facility], . tel:[phone] Family History Family Member Type Diagnosis Age At Onset Mother Problem (finding) malignant neoplasm of l bettie Sister Problem (finding) MVA (Cause Of ) 2 daughters Problem (finding) Alive and well Problem (finding) Family history of raised blood lipids Maternal grandmother Problem (finding) malignant neopl asm of lung Mother Problem (finding) Alive and well Maternal grandfather Problem (finding) Myocardial infa rction Sister Problem (finding) Immunizations Vaccine Date Status Comments Influenza virus vaccine, spl it virus, 3 years and older, intramuscular use (fluvirin) administered Note: Walgr eejunior ; Source: Source Unspecified flu (split) (3 yrs or older) administered Note: date is approximate ; Source: Other Provider flu (split) (3 yrs or older) administered Source: Public Agency Tdap administered Source: [facility] unization Record 69123 - TD administered Source: Source Unspecified Payers Payer name Insurance type Covered constitution party ID Authoriza gage(s) [facility] [id number] Social History Type Description Quantity Date Captured Comments Sex Female Smoking Status No Information Chief Complaint And Reason For Visit No Information Reason For Referral Reason For Referral No Information History Of Present Illness Encounter Date Complaint History Of Prese nt Illness No Information Functional Status Date Functional Assessmen t No Information Medications Administered Medication Instructions Dosage Effective Dates (start - stop) Status Comments No Drug Therapy Prescribed Instructions Date Instruction Additional Infor mation No Information Assessments Type Assessment Date No Information Patient Care Teams Name Effective Dates (start - stop) Status Members No Information
--- NOTE | ~2025-05-07 | MMUS_ITS ---
EXAMINATION: US breast RT limited, MM diagnostic luis f RT w andressa HISTORY: Palpable abnormality in the right breast at the 2:00 position, 6 cm from the nipple, felt by the patient's physician. TECHNIQUE: [Additional images of the right breast]] were performed using full field digital mammography. 3-D tomosynthesis were also obtained and synthetic 2- D images were generated. CAD analysis was submitted and interpreted. High resolution right breast ultrasound in the area of concern from the 1 to 3:00 position was performed.] ] COMPARISON: Mammograms from 08/26/2024, 07/15/2023 and 06/04/2022 BREAST PARENCHYMAL COMPOSITION: The breasts are composed of scattered fibroglandular densities. FINDINGS: MAMMOGRAPHIC FINDINGS: No suspicious mass, calcification or architectural distortion. There are a few benign oil cysts scattered throughout the right breast. ULTRASOUND: There is a 3 x 4 x 3 mm benign cyst in the right breast in the 1:00 position 9 cm from the nipple anterior depth. There is a 4 x 4 x 4 mm benign oil cyst in the right breast at the 2:00 position 6 cm from the nipple anterior depth. The finding is in the area of palpable concern. There is a 2 x 2 x 3 mm benign mildly complicated cyst in the right breast at the 2:00 position 3 cm from the the nipple anterior depth. There is a 5 x 5 x 4 mm benign oil cyst in the right breast at the 2:00 position 5 cm from nipple anterior depth. IMPRESSION/RECOMMENDATION: Benign findings in the right breast. Annual screening mammogram is recommended. BIRADS 2-Benign A benign mammogram and a benign ultrasound should not preclude additional workup and/or biopsy of a clinically suspicious abnormality. Reviewed, dictated and finalized at location Q. IMPRESSION/RECOMMENDATION: Benign findings in the right breast. Annual screening mammogram is recommended. BIRADS 2-Benign A benign mammogram and a benign ultrasound should not preclude additional cammy p and/or biopsy of a clinically suspicious abnormality. IMPRESSION/RECOMMENDATION: Benign findings in the right breast. Annual screening mammogram is recommended. BIRADS 2-Benign A benign mammogram and a benign ultrasound should not preclude additional cammy p and/or biopsy of a clinically suspicious abnormality.
--- OUTSIDE RECORDS SUMMARY | 2025-05-07 13:53 | XMS_ITS | Encounter Summary ---
Author Organization [facility] Facility Care Team Providers Care Ad Operations Intern Name Role Phone Eun Rodriguez MD Primary Care Provi ashli Carmen Alanis MD Unavailable Encounter Details Date Type Department Care Team (Latest Contact Info) Description 02/28/2018 Orders Only [facility] CLINCONV ProviderRuben MD [address] [place] [address] Social History Tobacco Use Types Packs/Day Years Used Date Smoking Tobacco: Never Assessed Comments Unknown Sex and Gender Information Value Date Recorded Sex Assigned at Not on file Legal Sex Female 9:32 AM DIRECTOR OF CONSTRUCTION Gender Identity Female 04/21/2021 2:30 PM CDT [...] on filedocumented in this encounter Care Teams Ad Operations Intern Relationship Specialty Start Date End Date Eun Rodriguez MD [address] [place] [address] PCP - General Family Medicine 02/08/19 Carmen Alanis MD [address] [address] Consulting Physician Gastroenterology 04/28/22 documented as of this encounter
--- OUTSIDE RECORDS SUMMARY | 2025-05-07 13:53 | XMS_ITS | Encounter Summary ---
Author Organization [facility] Care Team Providers Care Vermin Exterminator Name Role Phone Eun Rodriguez MD Primary Care Provi ashli Carmen Alanis MD Unavailable [phone] Encounter Details Date Type Department Care Team (Latest Contact Info) Description 02/06/2017 Orders Only [facility] CLINCONV Provider, MD Ruben [address] [place] [address] Social History Tobacco Use Types Packs/Day Years Used Date Smoking Tobacco: Never Assessed Comments Unknown Sex and Gender Information Value Date Recorded Sex Assigned at Not on file Legal Sex Female 9:32 AM BOILER OR ENGINE OPERATOR Gender Identity Female 04/21/2021 2:30 PM [...] on filedocumented in this encounter Care Teams Vermin Exterminator Relationship Specialty Start Date End Date Eun Rodriguez MD [address] [place] [address] PCP - General Family Medicine 02/08/19 Carmen Alanis MD [address] [address] Consulting Physician Gastroenterology 04/28/22 documented as of this encounter
--- OUTSIDE RECORDS SUMMARY | 2025-05-07 13:53 | XMS_ITS | Encounter Summary ---
Author Organization [facility] Facility Care Team Providers Care Estimator And Drafter Name Role Phone Eun Rodriguez MD Primary Care Provi ashli Carmen Alanis MD Unavailable [phone] Encounter Details Date Type Department Care Team (Latest Contact Info) Description 02/07/2017 Orders Only [facility] CLINCONV Provider, MD Ruben [address] [place] [address] Social History Tobacco Use Types Packs/Day Years Used Date Smoking Tobacco: Never Assessed Comments Unknown Sex and Gender Information Value Date Recorded Sex Assigned at Not on file Legal Sex Female 9:32 AM AUTOMATION SPECIALIST Gender Identity Female 04/21/2021 2:30 PM [...] on filedocumented in this encounter Care Teams Estimator And Drafter Relationship Specialty Start Date End Date Eun Rodriguez MD [address] [place] [address] PCP - General Family Medicine 02/08/19 Carmen Alanis MD [address] [address] Consulting Physician Gastroenterology 04/28/22 documented as of this encounter
--- OUTSIDE RECORDS SUMMARY | 2025-05-07 13:53 | XMS_ITS | Encounter Summary ---
Author Organization [facility] Address [address] [place] [address] Care Team Providers Care Vacuum Form Operator Name Role Phone Eun Rodriguez MD Primary Care Provi ashli Carmen Alanis MD Unavailable [phone] Encounter Details Date Type Department Care Team (Late st Contact Info) Description 05/07/2025 Telephone [facility] Obstetrical Gynecology [address] [address] Kavitha Shelley MD [address] [address] Social History Tobacco Use Types [...] on file Legal Sex Female 9:32 AM MEMORANDUM STATEMENT CLERK Gender Identity Female 04/21/2021 2:30 PM CDT Sexual Orientation Straight 04/21/2021 2: 30 PM CDT documented as of this encounter Miscellaneous Notes * Telephone Encounter - Nikhil Pablo MA - 05/07/2025 1:04 PM CDT Orders have been sent to [facility] * Telephone Encounter - Gayle Jarrett - 05/07/2025 12:45 PM CDT [facility] calling asking for mammogram and US orders to be faxed to [phone] documented in this encounter Plan of Treatment Not on file documented as of this encounter Visit Diagnoses Not on filedocumented in this encounter Care Teams Vacuum Form Operator Relationship Specialty Start Date End Date Eun Rodriguez MD [address] [place] [address] PCP - General Family Medicine 02/08/19 Carmen Alanis MD [address] [address] Consulting Physician Gastroenterology 04/28/22 documented as of this encounter
--- OUTSIDE RECORDS SUMMARY | 2025-05-07 13:53 | XMS_ITS | Encounter Summary ---
Author Organization [facility] Care Team Providers Care Wholesale Manager Name Role Phone Eun Rodriguez MD Primary Care Provi ashli Carmen Alanis MD Unavailable [phone] Encounter Details Date Type Department Care Team (Latest Contact Info) Description 12/09/2015 Orders Only [facility] CLINCONV Provider, MD Ruben [address] [place] [address] Social History Tobacco Use Types Packs/Day Years Used Date Smoking Tobacco: Never Assessed Comments Unknown Sex and Gender Information Value Date Recorded Sex Assigned at Not on file Legal Sex Female 9:32 AM HOME CARE PROVIDER Gender Identity Female 04/21/2021 2:30 PM CDT [...] on filedocumented in this encounter Care Teams Wholesale Manager Relationship Specialty Start Date End Date Eun Rodriguez MD [address] [place] [address] PCP - General Family Medicine 02/08/19 Carmen Alanis MD [address] [address] Consulting Physician Gastroenterology 04/28/22 documented as of this encounter
--- OUTSIDE RECORDS SUMMARY | 2025-05-07 13:53 | XMS_ITS | Clinical Summary ---
Author Organization [facility] Address [address] [place] [address] Care Team Providers Care Wire Frame Lamp Shade Maker Name Role Phone Eun Rodriguez MD Primary Care Provi ashli Carmen Alanis MD Unavailable [phone] Allergies No known active allergies Medications multivit with min-folic acid 200 mcg tablet,chewable Rx: Multivitamin Adult - Tablet Active cetirizine [...] NOSTRIL DAILY 17 g 11 3 Active Active Problems Problem Noted Date Diagnosed Date Class 1 obesity due to exces s calories with serious comorbidity and body mass index (BMI) of 30.0 to 30.9 in adult 04/28/2022 Assessment & Plan (07/12/2024 9:57 AM SENIOR TECHNICAL WRITER): Chronic, stable BMI Follow-up includes: nutrition counseling [...] date Assessment & Plan (07/12/2024 9:48 AM SENIOR TECHNICAL WRITER): Work on healthy low carb diet Healthy [...] Encounters Date Type Department Care Team Description 05/07/2025 Telephone [facility] Obstetrical Gynecology [address] [place] [phone] Kavitha Shelley MD 04/10/2025 11:00 AM CDT Office Visit [facility] Obstetrical Gynecology [address] [place] [phone] Kavitha Shelley MD Encounter for screening mammogram for malignant neoplasm of breast (Primary Dx); Mass of upper inner quadrant of right breast; Well woman exam; IUD (intrauterine device) in place 04/01/2025 9:00 AM CDT Therapy [facility] OP Physical Therapy [address] [place] [address] Tarsal tunnel syndrome, right lower limb; Pain in right foot from Last 3 Months Immunizations Immunization Administration Dates Next Due Influenza, Quadrivalent, Odalys [...] file Legal Sex Female 9:32 AM SENIOR TECHNICAL WRITER Gender Identity Female 04/21/2021 2:30 PM CDT [...] Sign Reading Time Taken Comments Blood Pressure 106/62 04/10/2025 10:56 AM CDT Pulse 68 07/12/2024 9:31 AM SENIOR TECHNICAL WRITER Temperature 36.4 C (97.5 F) 07/12/2024 9:31 AM SENIOR TECHNICAL WRITER Respiratory Rate 12 07/12/2024 9:31 AM SENIOR TECHNICAL WRITER Oxygen Saturation 97% 07/12/2024 9:31 AM SENIOR TECHNICAL WRITER Inhaled Oxygen Concentration - - Weight 72.7 kg (160 lb 3.2 oz) 04/10/2025 10:56 AM CDT Height 157.5 cm (5' 2) 04/10/2025 10:56 AM CDT Body Mass Index 29.3 04/10/2025 10:56 AM CDT Plan of Treatment Health Maintenance Due Date Last Done Comments Hepatitis B Screening 12[birth year]02[birth year]1991 Breast Cancer Screening-Mammogram 07/15/2024 07/15/2023, 06/04/2022, 05/04/2021, Additional history exists Cervical Cancer Screening 04/08/20252023, 04/08/2024, 04/21/2021, Additional history exists Influenza Vaccine (#1) 2025 , 06/16/2023, 05/27/2022, Additional history exists Depression Screening 07/12/2025 07/12/2024, 05/03/2024, 05/03/2023, Additional history exists Regular Well Visit/Exam 18-64 04/10/2026 04/10/2025, 07/12/2024, 04/08/2024, Additional history exists Colon Cancer Screening-Colonoscopy 02/12/2029 [...] - 06/02/2024 8:09 AM CDT Performed at: - [address] [id number] Production Grip: Vasiliy Leach PhD, Phone: [phone] Eun Rodriguez MD LAB MICROBIOLOGY - GENERAL ORDERABLES Final Result [facility] - * High Risk HPV DNA Detection with Genotyping (Molecular component) (04/08/2024 9:53 AM CDT) Pathologist [facility] HPV HR 16 Not Detected Not Detected [facility] Comment:Testing performed by : [facility], [address] [place] [address] HPV HR 18 Not Detected Not Detected [facility] Comment:Testing performed by : [facility], [address] [place] [address] HPV HR Non 16/18 Not Detected Not Detected [facility] Comment: Interpretive Data Nucleic acid amplification for detection of high-risk Human Papilloma virus (HPV) is performed by the Jairo Nicole 6800 HPV test. This assay specifically detects HPV-16 and HPV-18 genotypes. The following HPV genotypes are detected as high-risk HPV: HPV-31, 33, 35, ,39, 45, 51, 52, [...] this test have been verified by the [facility] Molecular Infectious Disease laboratory. Correlate with separately reported cytology results, as applicable. Interpretive data last revised 23 Testing performed by: [facility], [address] [facility], [place]., [address] Endocervical 04/08/2024 9:53 AM CDT 04/09/2024 10:08 AM CDT Narrative [facility] - 04/09/2024 8:57 PM CDT Clinical history and diagnosis->Routine Number of vials->1 Testing type->Screening Last menstrual period (date if known)->IUD Kavitha Shelley MD LAB BODY FLUIDS AND STOOLS ORDERABLES Final Result [facility] [address] Department [place] [address] [facility] * COLONOSCOPY (02/13/2024) Historical Provider HEALTH MAINTENANCE Final Result * MAMMOGRAPHY (07/15/2023) Mammography Normal Historical Provider HEALTH MAINTENANCE Final Result from Last 3 Months or Most Recently Relevant to Health Maintenance Insurance [facility] [employer] [facility] [employer] Care Teams Wire Frame Lamp Shade Maker Relationship Specialty Start Date End Date Eun Rodriguez MD [address] [place] [address] PCP - General Family Medicine 02/08/19 Carmen Alanis MD [address] [place] [address] Consulting Physician Gastroenterology 04/28/22
--- OUTSIDE RECORDS SUMMARY | 2025-05-07 13:53 | XMS_ITS | Encounter Summary ---
Author Organization [facility] Care Team Providers Care Gage Maker Name Role Phone Eun Rodriguez MD Primary Care Provi ashli Carmen Alanis MD Unavailable [phone] Encounter Details Date Type Department Care Team (Latest Contact Info) Description 12/23/2014 Orders Only [facility]INCONV Provider, MD Ruben [address] [place] [id number] Social History Tobacco Use Types Packs/Day Years Used Date Smoking Tobacco: Never Assessed Comments Unknown Sex and Gender Information Value Date Recorded Sex Assigned at Not on file Legal Sex Female 9:32 AM FICTION WRITER Gender Identity Female 04/21/2021 2:30 PM [...] on filedocumented in this encounter Care Teams Gage Maker Relationship Specialty Start Date End Date Eun Rodriguez MD [address] [place] [address] PCP - General Family Medicine 02/08/19 Carmen Alanis MD [address] [address] Consulting Physician Gastroenterology 04/28/22 documented as of this encounter
== END 2025-05-07 12:41 | disposition home or self-care (01) ==
PROVIDERS: PCP Family Medicine; Visit Provider Obstetrics & Gynecology
DX: N63.12 Unspecified lump in the right breast, upper inner quadrant (principal)
CPT/HCPCS: 76642; 77061; 77065; G0279